=== PATIENT | female | born 1945 | race Caucasian/White ===

== ENCOUNTER → 2017-02-04 | Outpatient (CLI) | payer OTHER | END | disposition home or self-care (01) | LOC: C.PAPS 18:34 | PROVIDERS: ATTEND Obstetrics & Gynecology | DX: Z01.419 Encounter for gynecological examination (general) (routine) without abnormal findings (principal) ==

== ENCOUNTER → 2017-03-20 | Outpatient (CLI) | payer OTHER ==
[2017-03-20 12:48] LABS: BLOOD UREA NITROGEN 20 mg/dl (7-18); CALCIUM 8.9 mg/dl (8.5-10.1); CARBON DIOXIDE 28 mmol/L (21-32); CHOLESTEROL 275 mg/dl (0-200); CREATININE 0.62 mg/dl (0.60-1.20); GLUCOSE 90 mg/dl (70-99); POTASSIUM 4.3 mmol/L (3.5-5.1); SODIUM 141 mmol/L (136-145)
[2017-03-20 12:53] LABS: LDL CHOLESTEROL CALCULATED 185 mg/dl
== END | disposition home or self-care (01) ==
LOC: C.LABPVFM 08:53
PROVIDERS: ATTEND Internal Medicine
DX: R22.9 Localized swelling, mass and lump, unspecified (principal); R91.1 Solitary pulmonary nodule; G62.9 Polyneuropathy, unspecified; E55.9 Vitamin D deficiency, unspecified; N20.0 Calculus of kidney; E78.5 Hyperlipidemia, unspecified

== ENCOUNTER → 2017-04-09 | Outpatient (CLI) | payer OTHER | END | disposition home or self-care (01) | LOC: C.LABPVFM 14:04 | PROVIDERS: ATTEND Internal Medicine | DX: R22.9 Localized swelling, mass and lump, unspecified (principal); R91.1 Solitary pulmonary nodule; G62.9 Polyneuropathy, unspecified ==

== ENCOUNTER → 2017-04-18 | Outpatient (CLI) | payer OTHER ==
--- NOTE | 2017-04-18 11:22 | DIAGNOSTIC IMAGING REPORT ---
SOFT TISS HEAD/NECK-THYROID HISTORY: Pain. Nodule. R22.9 Soft tissue swellingSoft tissue mass on the medial aspect COMPARISON: CT 12/14/2016 FINDINGS: The area of palpable nodularity overlying the medial right clavicle at the sternal manubrial junction appears to relate to a slight anterior degenerative subluxation of the right clavicle in relation to the manubrium. Based on the prior CT study there is a moderate degree of surrounding degenerative granulation tissue which may account for the area of palpable nodularity. No soft tissue mass or collection is appreciated. IMPRESSION: The area of palpable nodularity appears to relate to asymmetry of the sternoclavicular joints with the right being somewhat anterior as compared to the left on a degenerative basis. This area of asymmetry is surrounded by moderate degenerative granulation tissue in part accounting for the palpable area of asymmetry. No pathologic collection or mass is appreciated. The above report was generated using voice recognition software. It may contain grammatical, syntax or spelling errors. Electronically signed by: Gus Erickson M.D. 04/18/2017 11:21 AM Dictated Date/Time: 04/18/2017 11:19 AM
== END | disposition home or self-care (01) ==
LOC: C.ULTR 10:38
PROVIDERS: ATTEND Nurse Practitioner
DX: R22.9 Localized swelling, mass and lump, unspecified (principal)

== ENCOUNTER → 2017-04-25 | Outpatient (CLI) | payer OTHER ==
--- NOTE | 2017-04-25 09:51 | DIAGNOSTIC IMAGING REPORT ---
(CHEST) THORAX WITHOUT CLINICAL HISTORY: 72 years-old Female presenting with R06.02 SOB (shortness of breath) on [id number] Lung nodule follow-up. TECHNIQUE: Multidetector CT imaging of the chest was performed without the use of intravenous contrast. IV contrast: None. A dose lowering technique was used consistent with the principles of ALARA (as low as reasonably achievable). COMPARISON: 10/23/2016. CT DOSE (mGy.cm): The estimated cumulative dose is 305.61 mGy.cm. FINDINGS: Sailmaker topogram: Unremarkable. On soft tissue windows, normal thyroid and thoracic inlet. No axillary, supraclavicular, or mediastinal lymphadenopathy. Evaluation of the ghassan limited without intravenous contrast. Atherosclerosis of the aorta. Normal heart size. Coronary artery and aortic valve calcification. No pericardial or pleural effusion. Fat-containing right Bochdalek hernia. On lung windows, minimal dependent changes likely atelectasis. Solid 4 mm triangular fissural nodule in the superior segment of the right lower lobe (series 4 image 97). Solid 4 mm triangular fissural nodule in the superior segment of the right lower lobe (series 4 image 133). Solid 4 mm polygonal fissural nodule in the medial right middle lobe (series 4 image 162). Solid punctate fissural nodule in the superior segment of the left lower lobe (series 4 image 127). Solid ovoid subpleural 7 mm nodule in the lateral basal left lower lobe (series 4 image 179). Allowing for differences in slice thickness with the prior exam, these nodules are grossly similar in appearance. Airways patent. On bone windows, degenerative changes of the spine. IMPRESSION: 1. Multiple bilateral solid pulmonary nodules measuring up to 7 mm. These are grossly similar in appearance to prior exam allowing for differences in slice thickness. Follow-up per Chika Society 2017 recommendations below. 2. No acute intrathoracic pathology. Please refer to below summary of Fleischner Society 2017 recommendations for follow-up of incidental CT nodules (Thanh Godinez et al. Guidelines for management of incidental pulmonary nodules detected on CT images: From the Fleischner Society 2017. Radiology 2017; 284: 228-243.) SOLID NODULES Single nodule; size < 6 mm * Low risk patients: No routine follow-up * High risk patients: Optional CT at 12 months Single nodule; size 6-8 mm * Low risk patients: CT at 6-12 months, then consider CT at 18-24 months * High risk patients: CT at 6-12 months, then at 18-24 months Single nodule; size > 8 mm * Either low or high risk patients: Considered CT at 3 months, PET/CT, or tissue sampling Multiple nodules; size < 6 mm * Low risk patients: No routine follow up * High risk patients: Optional CT at 12 months Multiple nodules; size 6-8 mm * Low risk patients: CT at 3-6 months, then consider CT at 18-24 months * High risk patients: CT at 3-6 months, then at 18-24 months Multiple nodules; size > 8 mm * Low risk patients: CT at 3-6 months, then consider at 18-24 months * High risk patients: CT at 3-6 months, then at 18-24 months Note: These guidelines apply to incidental nodules. These guidelines do not apply to patients younger than 35 years, immunocompromised patients, or patients with cancer. * Low risk patients: Minimal or absent history of smoking and/or other known risk factors * High risk patients: History of smoking, exposure to other carcinogens, emphysema, fibrosis, upper lobe location, family history of lung cancer, etc. * If a nodule up to 8 mm is partly solid or is ground glass, further follow-up is required after 24 months to exclude possible slow growing adenocarcinoma. SUBSOLID NODULES Single ground-glass nodule * Nodule size < 6 mm: No routine follow-up * Nodule size > or = 6 mm: CT at 6-12 months to confirm persistence, then CT every 2 years until 5 years Single part-solid nodule * Nodule size < 6 mm: No routine follow-up * Nodules size > or = 6 mm: CT at 3-6 months to confirm persistence. If unchanged and solid component remains < 6 mm, annual CT should be performed for 5 years Multiple nodules * Nodule size < 6 mm: CT at 3-6 months. If stable, consider CT at 2 and 4 years. * Nodules size > or = 6 mm: CT at 3-6 months. Subsequent management based on the most suspicious nodule(s) Electronically signed by: William Vo M.D. 04/25/2017 9:49 AM Dictated Date/Time: 04/25/2017 9:40 AM
== END | disposition home or self-care (01) ==
LOC: C.CTS 09:26
PROVIDERS: ATTEND Internal Medicine Critical Care Medicine
DX: R06.02 Shortness of breath (principal); R91.1 Solitary pulmonary nodule

== ENCOUNTER → 2017-05-28 | Outpatient (CLI) | payer OTHER | END | disposition home or self-care (01) | LOC: C.LABPVFM 09:46 | PROVIDERS: ATTEND Psychiatry & Neurology Neurology | DX: G62.9 Polyneuropathy, unspecified (principal) ==

== ENCOUNTER 2019-08-20 07:00 | Observation (INO) ==
--- NOTE | 2019-08-13 12:48 | Anesthesiology Consultation ---
Date of Service August 13, 2019 Assessment & Plan (1) Encounter for pre-operative examination: COVID Status: As of nurse assessment 08/12, patient denies travel outside of [facility], known exposure/sick contacts, or symptoms. Patient was tested for covid19 as routine pre-op for surgeon on 08/11. Results pending. Chart Review Chart Review: Acceptable Risk for Surgery (pending covid19 test results) and Patient NOT seen in Pre Admission Testing History Surgery Operation Date: 08/20/19 07:00 Proposed Procedures p Right Total Knee Arthroplasty - Real Zelaya MD Height/Weight Height: 5 ft 4 in Weight: 86.183 kg Allergies Allergy/AdvReac Type Severity Reaction Status Date / Time shellfish derived Allergy Hives Verified 08/13/19 11:19 Medications Home Medications Medication Instructions Recorded Confirmed Last Taken cholecalciferol (vitamin D3) 5,000 unit PO QAM 08/06/18 08/13/19 12/11/18 [Vitamin D3] meclizine 12.5 mg PO TID PRN 08/06/18 08/13/19 12/11/18 walker #1 ea 01/06/19 08/13/19 Unknown diclofenac sodium 75 mg See Rx Instructions .ROUTE 04/07/19 08/13/19 Unknown tablet,delayed release .COMPLEX #180 tablet omeprazole magnesium 20 mg 20 mg PO DAILY PRN #90 tab 07/20/19 08/13/19 Unknown tablet,delayed release atorvastatin 20 mg tablet 20 mg PO QAM #90 tab 07/24/19 08/13/19 Unknown temazepam 30 mg capsule 30 mg PO QPM #90 cap 07/24/19 08/13/19 Unknown gabapentin 300 mg capsule 600 mg PO TID 30 Days #180 cap 08/04/19 08/13/19 Unknown acetaminophen [Tylenol Extra 500 mg PO Q6H PRN 08/13/19 08/13/19 Unknown Strength] duloxetine 60 mg PO QAM 08/13/19 08/13/19 Unknown Past Medical History Medical History Anxiety disorder Benign breast lumps GERD (gastroesophageal reflux disease) History of iron deficiency anemia History of kidney stones Hyperlipidemia (Chronic) Meniere disease Neuropathy Osteoarthritis Pulmonary nodule MONITORING Right knee DJD (Chronic) Spinal stenosis (Chronic) Vitamin D deficiency (Chronic) Past Family History Family History Mother Diabetes Family history of diabetes mellitus Myocardial infarction Hypertension Aunt Breast cancer Father Prostate cancer Other No family history of adverse response to anesthesia Denies family history of Ovarian cancer Colorectal cancer Past Surgical History Surgical History H/O total hysterectomy (Inactive) History of cataract surgery History of colonoscopy History of lithotripsy History of lumpectomy of both breasts BENIGN History of surgery BLADDER SLING History of tonsillectomy History of tooth extraction Status post JEZ-BSO Social History Smoking Status: Former smoker tobacco type: cigarettes Do You Dip or Chew Tobacco: No Smoking End Date: 1989 Hx Alcohol Use: Yes Alcohol type: beer alcohol intake frequency: 0-2 drinks per day Hx Substance Use: No substance use type: does not use Testing Laboratory Results Blood Type O Negative 08/05/19 12:25 Antibody Screen NEGATIVE 08/05/19 12:25 08/05/19 WBC: 6.69 H/H: 12.2/38.4 PLATELETS: 303 SODIUM: 142 POTASSIUM: 4.0 CHLORIDE: 109 CO2: 27 BUN: 16 CREATININE: 0.68 GLUCOSE: 92 PT: 10.6 PTT: 26.7 INR: 1.0 Electrocardiogram Date: 08/05/19 Findings: + NSR @ (70bpm) Compared to EKG from 03/31/2019, iRBBB is no longer present, and criteria for inferior infarct is no longer present. Chest X-Ray Date: 08/05/19 IMPRESSION: Trace pleural effusions with mild bibasilar opacities suggestive of probable atelectasis.
[2019-08-14 21:15] LABS: SARS CoV2 RNA (COVID-19) NOT DETECTED (NOT DETECTED)
[~2019-08-20 07:00] MED LIST: ACETAMINOPHEN 500 MG TAB PO SCH; BUPIVACAINE 0.25% 30 ML VIAL ONE; BUPIVACAINE 0.5 % 5 MG/1 ML PF 10ML VIAL ONE; BUPIVACAINE LIPOSOME/PF 266 MG, BUPIVACAINE/EPINEPHRINE 50 ML, SODIUM CHLORIDE 0.9% 30 ... INFIL SCH; CEFAZOLIN 2000MG 2,000 MG/15 ML SYR IV SCH; CEFAZOLIN 3000MG 72.5 ML IV SCH; FAMOTIDINE 20 MG TAB PO SCH; GABAPENTIN 300 MG CAP PO SCH; LR 500ML BOLUS, THEN 15ML/HR IV SCH; LR 60ML/HR IV SCH; METOCLOPRAMIDE HCL 10 MG TABLET PO SCH; TRANEXAMIC ACID / 0.7% NACL 1,000 MG/100 ML BAG IV SCH
[2019-08-20] MEDS ORDERED: MIDAZOLAM HCL 1 MG/ML 2ML VIAL ONE (07:11)
[2019-08-20] MEDS ORDERED: fentaNYL citrate 100 MCG/2 ML VIAL ONE (07:11)
--- NOTE | 2019-08-20 08:25 | History & Physical Bridge Note ---
Date of Service August 20, 2019 History & Physical Bridge Note I have examined the patient, reviewed the History & Physical and in the interval since the performance of the History & Physical I have noted the following changes of clinical significance: no changes noted
[2019-08-20] MEDS ORDERED: BUPIVACAINE/EPINEPHRINE 0.25% 1:200,000 30 ML VIAL ONE (08:31)
[2019-08-20] MEDS ORDERED: BACITRACIN INJ 50,000 UNIT VIAL ONE (08:32)
[2019-08-20] MEDS ORDERED: BUPIVACAINE LIPOSOME 1.3% 266 MG/20 ML VIAL ONE (08:32)
[2019-08-20] MEDS ORDERED: SODIUM CHLORIDE 0.9% PF 50 ML VIAL ONE (08:32)
[2019-08-20] MEDS ORDERED: fentaNYL citrate 100 MCG/2 ML VIAL IV PRN (09:01)
[2019-08-20] MEDS ORDERED: ATROPINE SULFATE 0.1 MG/ML 10ML SYR IV PRN (09:01)
[2019-08-20] MEDS ORDERED: ONDANSETRON INJ 2 MG/ML 2 ML VIAL IV PRN ×2 (09:01→11:42)
[2019-08-20] MEDS ORDERED: ePHEDrine sulfate 50 MG/ML AMP IV PRN (09:01)
[2019-08-20] MEDS ORDERED: PROPOFOL IV EMULSION 10 MG/ML 20 ML VIAL IV ONE ×2 (09:37→10:06)
--- NOTE | 2019-08-20 10:30 | Post Operative Brief Note ---
PG Immediate Post Op with CF Date of Surgery August 20, 2019 Pre & Post Diagnosis Operation Date: 08/20/19 08:50 Pre-Op Diagnosis: Right Knee Degenerative Joint Disease Post-Op Diagnosis: Right Knee Degenerative Joint Disease I identified the patient and participated in the time-out.: Yes Procedure Operation Date: 08/20/19 08:50 Actual Procedures p Right Total Knee Arthroplasty(Right) - Real Zelaya MD Surgeon Real Zelaya MD Proof Machine Operator Jael, PAC Estimated Blood Loss 50 Findings Consistent with Post-Op Diagnosis Fluids 1200 cc Specimens Specimen Description: A: Right Knee Bone and Tissue Drains Meléndez Catheter (16fr inserted by PAOLO Velazquez without difficulty. ) Anesthesia Type Spinal MAC Complications none Disposition Accompanied Patient To Recovery: No Disposition: Recovery Room
--- NOTE | 2019-08-20 10:41 | Operative Report ---
Post Operative Report Pre & Post Diagnosis Operation Date: 08/20/19 08:50 Pre-Op Diagnosis: Right Knee Degenerative Joint Disease Post-Op Diagnosis: Right Knee Degenerative Joint Disease I identified the patient and participated in the time-out.: Yes Procedure Operation Date: 08/20/19 08:50 Actual Procedures p Right Total Knee Arthroplasty(Right) - Real Zelaya MD Surgeon Real Zelaya MD Guest Services Assistant Jael, PAC Estimated Blood Loss 50 Findings Consistent with Post-Op Diagnosis Operative findings revealed advanced right knee DJD with grade 4 [id number] disease of the lateral compartment. She had some spotty grade 4 changes in the medial and patellofemoral compartments. She had a valgus deformity to her knee and a moderate-sized joint effusion. Fluids 1200 cc. Specimens Right knee sent for pathology. Drains None. Anesthesia Type Spinal MAC Complications none Disposition Accompanied Patient To Recovery: No Disposition: Recovery Room Indications Patient is a 74-year-old female is had a several year history of increased right knee pain and discomfort unresponsive conservative care. As she was treated by my partner and then referred to me for surgical treatment. Pain was limiting her daily activities and ability to maintain an active lifestyle. She elected proceed with total knee arthroplasty. Description of Procedure Operative implants consist of: 1. Biomet Vanguard size 60 right posterior by femoral component. 2. Biomet size 63 tibial tray. 3. 10 mm posterior box polyethylene insert. 4. 31 x 8 all poly-patella. Patient was taken to the operating identified and placed on the operating table supine position protectors were properly padded. IV antibiotics arrived by anesthesia team. Spinal anesthetic and abductor canal block had provided in the holding area. Meléndez catheter was placed in sterile fashion in the right lower extremities and prepped and draped in usual sterile fashion. The right leg was elevated and exsanguinated with use of an Esmarch and turns placed at 300 mmHg. An anterior approach to the right knee was then performed to longitudinal incision centered over the patella. Sharp dissection was gone through subcutaneous this down to the extensor mechanism. A medial parapatellar arthrotomy incision was made. Some subperiosteal dissection was carried out medially. The fat pad was resected from each patella tendon. The lateral patellofemoral ligament was released. Patella was subluxated laterally knee was flexed. The osteophytes were taken off the distal femur. The ACL and PCL were then released from distal femur and the tibia subluxate anteriorly. The e xternal tibial alignment jig was then placed in the interface the tibia and adjusted 12 mm medially. Proximal tibial cut was made to remove about 4 to 5 mm of bone from the medial side. The tibia was then sized to a size 63. Attention drawn the femur. The distal femur was entered with a sharp drill. The intramedullary canal was suction. A right 5 degree valgus cutting guide was placed. Distal femoral cutting block was pinned in place. Distal femoral cut was made to take an additional 3 mm of bone off distal femur. The femur was then sized to a size 60. We did downsize this just slightly. The AP cutting block was pinned parallel to the epicondylar axis which was 4 degrees of external rotation. The anterior cut, anterior chamfer, posterior cut, posterior chamfer cuts were made. Box cutting guide was placed in a just slight lateral box cut was made. The knee was flexed. The remnants of the medial lateral menisci were excised. The osteophytes were taken off the posterior aspect the femur. A trial femoral component was placed. The tibial tray was pinned in maximum external rotation and the drill and stem punch were used to create defect in proximal tip for the tibial tray. The knee was then trialed and the 10 mm insert fit most appropriately. Attention drawn to the patella. The patella was cleaned of all soft tissues. Patella thickness measured 21 mm in thickness was cut down to 13. Was sized to a size 31 patella. The locals were drilled for 31 patella. The lateral osteophyte is moved. Patella button was placed. Knee was taken through range of motion and the patella tracked nicely with no thumbs test. Attention drawn to placing permanent components. New profile trial components were removed. Bone plug was placed in the disc femur limit blood loss. A double batch Palacos G cement was mixed. A Biomet Vanguard size 60 right posterior by femoral component, size 63 tibial tray, a 10 mm posterior box polyethylene insert, 31 x 8 all poly-patella were then cemented in place. The knee was brought out into full extension total cement hardened. Final cement check was then performed. The pericapsular tissues were injected with total 100 cc of combination of 20 cc of Exparel, 30 cc normal saline, 50 cc of quarter percent Marcaine with epinephrine. Patient did receive 1 g of tranexamic acid. The tourniquet was then let down for turn time 49 minutes. Hemostasis assured use electrocautery. The wounds once again irrigated. The extensor mechanism closed with combination 1 PDS suture #1 Vicryl suture in [id number] fashion. Extensor mechanism checked found to be intact the subcutaneous tissue then closed with 2 Dexon suture in a buried interrupted fashion skin was closed skin derek. Leg was then cleaned dried a sterile dressing composed Xeroform, 4 x 4's, sterile cast padding, Guanako bandage were applied. Patient then transferred to the recovery room in stable condition. Patient tolerated the procedure well no complications. I attest to the content of the Intraoperative Record and any orders documented therein. Any exceptions are noted below.
--- NOTE | 2019-08-20 11:24 | Anesthesiology Progress Note ---
Date of Service August 20, 2019 Anesthesia Post Procedure Vital Signs Vital Signs: Temp Pulse Pulse Resp BP BP Pulse Ox 08/20/19 11:15 36.3 C L 82 14 135/62 93 08/20/19 11:05 76 18 135/69 93 08/20/19 10:55 83 16 128/73 96 08/20/19 10:45 76 14 129/68 99 08/20/19 10:35 36.2 C L 86 14 124/67 96 08/20/19 07:44 37.0 C 68 18 147/81 H 98 Pain Intensity Right Knee: Pain Intensity: 6 Transfer of Care Handoff Completed per policy Notes Mental Status: alert / awake / arousable and participated in evaluation Nausea / Vomiting: adequately controlled Pain: adequately controlled Airway Patency, RR, SpO2: stable & adequate BP & HR: stable & adequate Hydration State: stable & adequate Neuraxial Anesthesia: was administered and sensory block is resolving Anesthetic Complications: no major complications apparent and Pt Satisfied with anesthetic care
--- NOTE | 2019-08-20 11:26 | XRay Report ---
XR knee RT 1 or 2V routine CLINICAL HISTORY: Surgical Post Op COMPARISON: Knee radiographs August 03, 2019. FINDINGS: Alignment of the total right knee arthroplasty is anatomic. No periprosthetic fracture or unexpected radiopaque foreign body. There are skin derek. IMPRESSION: Expected findings following total right knee arthroplasty. ACT 112: Negative or not required by law. Electronically signed by: Yobany Jimenez M.D. 08/20/2019 11:25 AM
[2019-08-20] MEDS ORDERED: HYDROmorphone INJ 0.5 MG/0.5 ML SYR IV PRN (11:42)
[2019-08-20] MEDS ORDERED: NALOXONE HCL 0.4 MG/1 ML VIAL/CARP IV PRN (11:42)
[2019-08-20] MEDS ORDERED: MAGNESIUM HYDROXIDE SUSP 30 ML UDC PO PRN (11:42)
[2019-08-20] MEDS ORDERED: METOCLOPRAMIDE HCL INJ 5 MG/ML 2 ML VIAL IV PRN (11:42)
[2019-08-20] MEDS ORDERED: bisacodyL 10 MG SUPP PR PRN (11:42)
[2019-08-20] MEDS ORDERED: ALUMINUM/MAGNESIUM SUSP 30 ML UDC PO PRN (11:42)
[2019-08-20] MEDS ORDERED: PANTOprazole 40 MG TAB PO PRN (11:42)
[2019-08-20] MEDS ORDERED: MECLIZINE 12.5 MG TAB PO PRN (11:42)
[2019-08-20] MEDS: SODIUM CHLORIDE 0.9% 1000ML 1,000 ML IV SCH ×2 (13:00→21:34)
[2019-08-20] MEDS: KETOROLAC TROMETHAMINE 15 MG/ML VIAL IV SCH ×2 (13:00→18:26)
[2019-08-20] MEDS: GABAPENTIN 300 MG CAP PO SCH ×2 (13:48→21:32)
[2019-08-20] MEDS: ACETAMINOPHEN 500 MG TAB PO SCH ×2 (13:49→21:54)
[2019-08-20] MEDS: TRAMADOL HCL 50 MG TABLET PO PRN (13:58)
[2019-08-20] MEDS ORDERED: TRANEXAMIC ACID / 0.7% NACL 1,000 MG/100 ML BAG IV SCH (16:33)
[2019-08-20] MEDS: CEFAZOLIN 2000MG 2,000 MG/15 ML SYR IV SCH (16:56)
--- NOTE | 2019-08-20 17:56 | Progress Notes ---
DATE: 08/20/2019 SUBJECTIVE: A 74-year-old white female who is postop from right knee replacement. She is doing pretty well. Getting the feeling back in her leg and have a little bit of pain. No chest pain or shortness of breath. Not feeling dizzy or lightheaded. OBJECTIVE: VITAL SIGNS: Temperature 36.9. Vital signs stable. GENERAL: Shows a pleasant, middle-aged female. She is sitting up in bed, looks reasonably comfortable. I did have to wake her when I went in to her room this evening. LUNGS: Clear to auscultation. HEART: Has a regular rate and rhythm. ABDOMEN: Soft, nontender, nondistended. EXTREMITIES: Grossly neurovascularly intact except as follows: Examination of the right leg reveals the dressing to be clean, dry and intact. She can dorsiflex and plantarflex her foot appropriately. She is neurologically intact. X-RAYS: X-rays of the right knee from recovery room were reviewed. It shows a right cemented posterior stabilized total knee arthroplasty. Components looked to be in good position. No signs of problems. ASSESSMENT: A 74-year-old white female postoperative from right knee replacement, doing well. Pain is controlled. She is neurologically intact. We will obviously have to adjust any pain medicines as the spinal continues to wear off. PLAN: 1. DVT prophylaxis including thigh-high TEDs, SCDs, and aspirin twice a day. 2. PT/OT. Weight bear as tolerated. Right total knee protocol. 3. Pain control, doing pretty well with current pain regimen. 4. Disposition: Plan to discharge to home with some home health once adequately stable and medically recovered.
[2019-08-20] MEDS: FERROUS GLUCONATE 324 MG TAB PO SCH (18:23)
[2019-08-20] MEDS: ASCORBIC ACID 500 MG TAB PO SCH (18:24)
[2019-08-20] MEDS ORDERED: TEMAZEPAM 15 MG CAPSULE PO SCH (21:00)
[2019-08-20] MEDS ORDERED: SENNA 8.6 MG TAB PO SCH (21:00)
[2019-08-20] MEDS: DOCUSATE SODIUM 100 MG CAP PO SCH (21:31)
[2019-08-20] MEDS: ASPIRIN 81 MG ECTAB PO SCH (21:31)
[2019-08-21] MEDS: CEFAZOLIN 2000MG 2,000 MG/15 ML SYR IV SCH (00:25)
[2019-08-21] MEDS: KETOROLAC TROMETHAMINE 15 MG/ML VIAL IV SCH ×3 (00:25→11:56)
[2019-08-21] MEDS: ACETAMINOPHEN 500 MG TAB PO SCH ×2 (05:40→13:21)
[2019-08-21] MEDS ORDERED: dexAMETHasone 4 MG TAB PO SCH (08:00)
[2019-08-21] MEDS: FERROUS GLUCONATE 324 MG TAB PO SCH (08:17)
[2019-08-21] MEDS: ASCORBIC ACID 500 MG TAB PO SCH (08:17)
[2019-08-21 08:26] LABS: Hematocrit (blood only) 29.7 % (37-47); Hemoglobin 9.5 g/dL (12.0-16.0); Mean Corpuscular Hemoglobin 27.7 pg (25-34); Mean Corpuscular Volume 86.6 fL (80-100); Mean Platelet Volume 10.3 fL (7.4-10.4); Platelet Count 230 K/uL (130-400); RDW Standard Deviation 47.2 fL (36.4-46.3); Red Blood Count 3.43 M/uL (4.2-5.4)
[2019-08-21 08:55] LABS: BUN Creatinine Ratio 19.3 (10-20); Calcium 7.7 mg/dl (8.5-10.1); Creatinine Clr Calc Pharmacy 80.9 ml/min; Est GFR (African American) 101.9; Est GFR (Non-African American) 87.9; Potassium 3.8 mmol/L (3.5-5.1)
[2019-08-21] MEDS ORDERED: MULTIVITAMIN TAB PO SCH (09:00)
[2019-08-21] MEDS ORDERED: ATORVASTATIN 20 MG TAB PO SCH (09:00)
[2019-08-21] MEDS ORDERED: CHOLECALCIFEROL 1,000 UNITS 25 MCG TAB PO SCH (09:00)
[2019-08-21] MEDS ORDERED: DULOXETINE HCL 60 MG CAP PO SCH (09:00)
--- NOTE | 2019-08-21 09:01 | Progress Notes ---
DATE: 08/21/2019 SUBJECTIVE: A 74-year-old female postop day 1 from a left knee replacement. She is doing pretty well. Having some pain, but seems manageable this morning. No chest pain or shortness of breath. Not feeling dizzy or lightheaded. She really is desiring to go home if possible. OBJECTIVE: VITAL SIGNS: Temperature is 36.5. Vital signs stable. GENERAL: Shows a pleasant elderly female. She was sleeping, I woke her this morning. She is lying in bed and looks comfortable. EXTREMITIES: Examination of the right leg reveals the dressing to be clean, dry and intact. She can dorsiflex and plantarflex her foot appropriately. She is neurologically intact. Brisk refill. LABORATORY DATA: Labs are pending. ASSESSMENT: A 74-year-old female postop day 1 from a right knee replacement, doing pretty well. Pain seems to be controlled. She wants to go home and we will have to see how therapy is going. She has a granddaughter, I believe, who is going to come and stay with her. PLAN: 1. DVT prophylaxis including thigh-high TEDs, SCDs, and aspirin twice a day. 2. PT/OT. Weight bear as tolerated. Right total knee protocol. 3. Pain control, doing pretty well with current pain regimen. 4. Disposition: We will see how therapy goes today. She is doing okay, we will get her home with some home health and some family assistance.
[2019-08-21] MEDS: DOCUSATE SODIUM 100 MG CAP PO SCH (09:17)
[2019-08-21] MEDS: ASPIRIN 81 MG ECTAB PO SCH (09:18)
[2019-08-21] MEDS: GABAPENTIN 300 MG CAP PO SCH ×2 (09:19→13:21)
[2019-08-21] MEDS: TRAMADOL HCL 50 MG TABLET PO PRN (10:22)
--- NOTE | 2019-08-24 16:05 | Discharge Summary ---
Date of Service August 24, 2019 Admission HPI Per Admitting Provider Documented in the H&P Admission Exam (Per Admitting) Constitutional Documented in the admission H&P Discharge Data Consultations 08/20/19 11:42 Consult Case Management - Discharge Planning Routine Procedures Performed Operation Date: 08/20/19 08:50 Actual Procedures p Right Total Knee Arthroplasty(Right) - Real Zelaya MD Hospital Course (1) Status post total right knee replacement: 74-year-old female admitted on 08/20/2019 underwent right total knee arthroplasty. She tolerated procedure well and there were no complications. She is transferred to the PACU postoperatively and later to the orthopedic for further care. She was given Ancef for antibiotic prophylaxis. She was given EYAD stockings, SCDs, and aspirin for DVT prophylaxis. Hemoglobin, hematocrit, and vital signs were monitored during her hospital stay and remained stable. Should not require blood transfusions. By postoperative day 1 she was tolerating a regular diet. Her pain was controlled with oral pain medicine. She is participating in physical therapy. On postop day 1 she was discharged home set up with home health services. She is given printed discharge instructions as well as new prescriptions for extra strength Tylenol, aspirin, and iron supplement, and tramadol. Continue physical therapy. She is weightbearing as tolerated. Continue EYAD stockings. Follow-up in approximately 2 weeks postop or sooner if there are any problems or concerns. Coding Level of Care Code None Diagnoses Status post total right knee replacement Z96.651
== END 2019-08-21 14:09 | disposition home health service (06) ==
LOC: 3N 07:00 → ASU 07:00

== ENCOUNTER 2021-04-14 08:53 | Inpatient (IN) ==
[2021-04-14] MEDS ORDERED: SODIUM CHLORIDE 0.9% 500 ML IV ONE (09:14)
--- NOTE | 2021-04-14 09:21 | Emergency Department Note ---
Impression & Plan Acute cognitive decline, Altered mental status, Anemia ED Provider Note Name: ILSA ANGELO Age: 76 Sex: F Arrives Via: Ambulance Informant: Patient, Family ED Provider: Roel Santoro MD Chief Complaint: confusion Impression: As per impression as above Medical Decision Makin-year-old female who recently had a left knee replacement about 4 days ago here at this facility. She notes she had been feeling well up until yesterday when she had a medication mistake and may have overtaken more of her pain meds than planned. This morning she took her meds at around 3 AM when family checked her at 7 AM she was confused and altered. Apparently she was having slurred speech and was not her normal self. EMS arrived and she was given some fluids with some improvement in her symptoms though still confused. She was taken here and remains mildly confused though is alert oriented and aware. Her examination shows significant edema and bruising of her left leg though does not appear compartment syndrome in the incision appears to be healing well. Her hemoglobin has dropped significantly though this is consistent with her recent surgery and in the setting of hemoglobin of 8.5 I do not feel that she requires transfusion at this time. Her abdominal exam is benign and she denies any bloody bowel movements though I will note she did note some dark stool to hospitalist. I will note the patient has no neurologic deficits nor slurred speech on my examination and I do not feel this is consistent with acute stroke. She did have a CT head on arrival which is negative. I do not feel that stroke alert would be indicated and she would clearly not be an anticoagulant candidate given her left leg surgery just a few days ago. In the setting of acute onset of confusion and some persistent symptoms even though this may be medication related I do not feel it be sandoval to send her home at this time and family agrees to also note that they do not feel they could care for this patient. Of note there is no clear evidence of infection at this time. Her chest x-ray is consistent with hypoventilation but there is no clear infiltrate or effusion at this time. She did have some mild hypoxia though I think this is more from under breathing. She is not to the point where she requires Narcan and I think that would just complicate measures. She was given Tylenol with improvement of her leg pain. Prior Medical Record and Triage/Nursing Notes reviewed by Me Additional history obtained from family Differentials:Infection, dehydration, metabolic abnormality, hypo/hyperglycemia, electrolyte disturbance, anemia, hypoxia, cardiac sources, intracerebral event, toxicologic, neurologic, as well as other pathologies. Vital Signs: reviewed and remarkable for no significant abnormalities Interventions: Tylenol 1 g p.o. Labs:Reviewed and remarkable for no significant abnormalities Imaging:See Below EKG:Per My Interpretation: Indication weakness: NSR 91 bpm, qtc 410. No Ectopy. No Ischemia. Compared to EKG 03/08/21, no significant changes. Consults:Dr Cecilia DIALLO Hospitalist Plan: Disposition:Hospitalization. Condition: Good History of Present Illness:76-year-old female arrives for evaluation of altered mental status. Patient with left knee replacement 4 days ago and had been at home doing well the last few days. She has been using her pain medications as scheduled. She awoke around 3 AM this morning to take her medicines and then when her woke her up around 7 AM he noted she was quite confused with slurred speech and altered mental status. She was too weak to even sit up. EMS was called and came to evaluate her and she gradually came back to her normal self. Apparently her blood sugar was normal. She was given 500 mL of IV fluid with improvement in her mental status. Patient notes some left knee pain but otherwise states she feels all right. She is asking when she can go home. She does admit to mild headache but states that is not uncommon for her. She is adamant she has had no falls nor injuries. She has had no fevers, chills, vomiting, back pain, abdominal pain, bloody stool, urinary symptoms, chest pain, shortness of breath or other symptoms. She denies any recent cough nor congestion. Patient states her knee has been sore but is not overly un comfortable at the moment and denies any rashes. She does note that the left lower leg is swollen consistent with her previous surgeries. She is currently on aspirin 81 mg twice daily but denies other blood thinner use. Patient with no bleeding disorder history. She does not have a history of stroke and her states she has never had an altered mental status episode like this before. ROS: See above HPI for pertinent positives & negatives. A total of 10 systems reviewed and were otherwise negative. Past Medical History:See Below Past Surgical History:See Below Family History:See Below Social History:See Below Home Medications:See Below Allergies:See Below Vitals:Blood Pressure: 120/71, Pulse 92, RR 18, T 37.4C, O2 93% on RA Physical Exam: GENERAL: Patient is tired/dehydrated appearing and in no acute distress. EYES: No scleral icterus, unremarkable pupils. ENT: Mucous membranes dry, no nasal congestion. NECK: No masses appreciated, nomeningismus, trachea is midline. RESPIRATORY: No dyspnea. Clear to auscultation and equal bilaterally. No wheeze, no rhonchi. CARDIOVASCULAR: Regular rate and rhythm.No murmurs, rubs, gallops appreciated. GASTROINTESTINAL: Abdomen soft, non-tender, no peritonitis.Bowel sounds positive.No masses appreciated. BACK: No midline tenderness, no CVA tenderness EXTREMITIES: Swelling left leg primarily around knee with well looking anterior incision line closed with derek and some mild serous oozing. Otherwise normal motion all extremities, no cyanosis, no edema. NEUROLOGIC: Mild confusion and slow to respond but she is alert and oriented, no acute motor or sensory deficits, no focal weakness, cranial nerves grossly intact. SKIN: No rash, no jaundice, no diaphoresis. PSYCH: Appropriate GCS: 15 ED Course: Times/Reassessments: Patient remains slightly confused/slow to respond but is in no distress. Roel Santoro MD Past Med/Surg History Medical History (Updated 04/14/21 @ 15:26 by Roel Santoro MD) Anxiety disorder Benign breast lumps Essential tremor follows with Dr. Giron [facility]-on propranolol GERD (gastroesophageal reflux disease) controlled, stable per pt History of iron deficiency anemia pre-op H&H 02/2021: 12.3/39 History of kidney stones punctate right renal stone, negative imaging in the urinary tracts, plan for 1 year f/u per [facility] 09/29/2020 office note Hyperlipidemia Left carpal tunnel syndrome Left hand tendonitis Left knee DJD Meniere disease Neuropathy idiopathic peripheral neuropathy per [facility] 12/2020 note-on duloxetine and gabapentin Osteoarthritis PMR (polymyalgia rheumatica) on daily prednisone Pulmonary nodule monitoring, follows with PCP Right knee DJD Spinal stenosis Vitamin D deficiency Surgical History (Updated 04/14/21 @ 12:54 by Sal Brooks MD) History of carpal tunnel release right History of cataract surgery bilat History of colonoscopy History of lithotripsy History of lumpectomy of both breasts BENIGN History of surgery BLADDER SLING History of tonsillectomy History of tooth extraction Status post right knee replacement 08/20/2019: SAB at L3, 3 attempts + PNB. No issues per anesthesia post-op progress note. Status post [id number] Family History Mother Diabetes Family history of diabetes mellitus Myocardial infarction Hypertension Stroke Heart disease Aunt Breast cancer Father Prostate cancer Brother Hearing loss Other No family history of adverse response to anesthesia No family history of bleeding disorder Denies family history of Ovarian cancer Colorectal cancer Social History Smoking Status: Former smoker packs per day: 0.5; Years Smoked: 18.0; Second Hand Exposure: No; Hx Alcohol Use: Yes Alcohol type: beer Hx Substance Use: No Preferred Language: Vietnamese Communication Ability: Effective Visual Impairment: No Limitations Hearing Ability: Normal Computer Support Technician Required: No Beliefs That Will Affect Care: None marital status: Current Living Situation: Spouse current occupational status: retired How many Children do You have: 1 Feels Safe at Home: Yes Childhood Exposure to Second-Hand Smoke: No caffeine: Yes Dental Care, Regularly: Yes Physical Activity Frequency: Other Seatbelt Use: always Sunscreen Use: Yes Assistive Devices: Glasses and Walker Allergies Allergies Allergy/AdvReac Type Severity Reaction Status Date / Time shellfish derived Allergy Intermediate Hives Verified 04/14/21 11:11 No Known Drug Allergies Allergy Verified 04/14/21 11:11 Home Meds Home Medications Medication Instructions Recorded Confirmed cholecalciferol (vitamin D3) 125 5,000 unit PO QAM 08/06/18 04/14/21 mcg (5,000 unit) tablet (Vitamin D3) meclizine 12.5 mg tablet 12.5 mg PO TID PRN 08/06/18 04/14/21 sennosides 8.6 mg-docusate sodium 1 tab-cap PO HS 04/14/21 04/14/21 50 mg tablet (Senokot-S) Previous Rx's Medication Instructions Recorded walker #1 ea 01/06/19 gabapentin 600 mg tablet 600 mg PO TID 90 Days #270 tab 12/09/20 atorvastatin 20 mg tablet (Lipitor) 20 mg PO QAM #90 tab 01/04/21 omeprazole magnesium 20 mg 20 mg PO QAM #90 tab 01/04/21 tablet,delayed release (Prilosec OTC) duloxetine 60 mg capsule,delayed 60 mg PO QAM #90 cap 03/02/21 release propranolol 120 mg capsule,24 120 mg PO QAM #90 cap 03/15/21 hr,extended release temazepam 30 mg capsule 30 mg PO HS #90 cap 03/28/21 prednisone 2.5 mg tablet 5 mg PO QAM #180 tab 03/30/21 acetaminophen 500 mg capsule 1,000 mg PO TID 30 Days #180 cap 04/07/21 aspirin 81 mg tablet,delayed 81 mg PO BID 45 Days #90 tab 04/07/21 release (Adult Aspirin Regimen) ketorolac 10 mg tablet 10 mg PO Q6 #20 tab 04/07/21 ondansetron HCl 4 mg tablet 4 mg PO Q6 PRN #20 tab 04/07/21 tramadol 50 mg tablet 50 - 100 mg PO Q8H PRN #40 tab 04/07/21 Results & Data (ED) Vital Signs Vital Signs - 24 hr 04/14/21 09:00 04/14/21 09:01 04/14/21 09:10 Temperature 37.4 C Temperature Source Oral Pulse Rate 85 92 H 89 Pulse Rate [Left Finger] Pulse Rate from SpO2 Sensor Respiratory Rate 20 18 24 Respiratory Effort / Characteristics Blood Pressure 129/67 120/71 Blood Pressure [Left Arm] Blood Pressure Mean 87 87 Blood Pressure Mean [Left Arm] Blood Pressure Position Semi-fowlers Blood Pressure Position [Left Arm] Pulse Oximetry 96 93 96 Oxygen Delivery Method Room Air Oxygen Flow Rate 2 2 Sepsis Recent Fever Within 48 Hours No Sepsis New/Unexplained Change in Mental Status No Sepsis Action Taken by Nursing No Action Required 04/14/21 09:20 04/14/21 09:30 04/14/21 09:49 Temperature Temperature Source Pulse Rate 88 88 90 Pulse Rate [Left Finger] Pulse Rate from SpO2 Sensor 89 Respiratory Rate 19 16 22 Respiratory Effort / Characteristics Blood Pressure Blood Pressure [Left Arm] Blood Pressure Mean Blood Pressure Mean [Left Arm] Blood Pressure Position Blood Pressure Position [Left Arm] Pulse Oximetry 96 93 95 Oxygen Delivery Method Nasal Cannula Oxygen Flow Rate 2 2 2 Sepsis Recent Fever Within 48 Hours Sepsis New/Unexplained Change in Mental Status Sepsis Action Taken by Nursing 04/14/21 09:50 04/14/21 10:00 04/14/21 10:10 Temperature Temperature Source Pulse Rate 85 85 Pulse Rate [Left Finger] 85 Pulse Rate from SpO2 Sensor 85 Respiratory Rate 21 20 19 Respiratory Effort / Characteristics Blood Pressure 122/92 Blood Pressure [Left Arm] 122/92 Blood Pressure Mean 102 Blood Pressure Mean [Left Arm] 102 Blood Pressure Position Blood Pressure Position [Left Arm] Sitting Pulse Oximetry 96 96 98 Oxygen Delivery Method Nasal Cannula Oxygen Flow Rate 2 2 2 Sepsis Recent Fever Within 48 Hours Sepsis New/Unexplained Change in Mental Status Sepsis Action Taken by Nursing 04/14/21 10:20 04/14/21 10:30 04/14/21 10:40 Temperature Temperature Source Pulse Rate 85 90 Pulse Rate [Left Finger] Pulse Rate from SpO2 Sensor 86 87 Respiratory Rate 16 16 20 Respiratory Effort / Characteristics Blood Pressure Blood Pressure [Left Arm] Blood Pressure Mean Blood Pressure Mean [Left Arm] Blood Pressure Position Blood Pressure Position [Left Arm] Pulse Oximetry 97 99 Oxygen Delivery Method Oxygen Flow Rate Sepsis Recent Fever Within 48 Hours Sepsis New/Unexplained Change in Mental Status Sepsis Action Taken by Nursing 04/14/21 10:50 04/14/21 11:08 04/14/21 11:10 Temperature Temperature Source Pulse Rate 91 H 104 H Pulse Rate [Left Finger] 88 Pulse Rate from SpO2 Sensor 86 90 Respiratory Rate 13 16 20 Respiratory Effort / Characteristics Spontaneous Blood Pressure Blood Pressure [Left Arm] 139/57 L Blood Pressure Mean Blood Pressure Mean [Left Arm] 84 Blood Pressure Position Blood Pressure Position [Left Arm] Pulse Oximetry 81 L 94 Oxygen Delivery Method Nasal Cannula Oxygen Flow Rate 2 Sepsis Recent Fever Within 48 Hours Sepsis New/Unexplained Change in Mental Status Sepsis Action Taken by Nursing 04/14/21 11:20 04/14/21 11:30 04/14/21 11:40 Temperature Temperature Source Pulse Rate 85 85 88 Pulse Rate [Left Finger] Pulse Rate from SpO2 Sensor 86 85 90 Respiratory Rate 18 17 19 Respiratory Effort / Characteristics Blood Pressure Blood Pressure [Left Arm] Blood Pressure Mean Blood Pressure Mean [Left Arm] Blood Pressure Position Blood Pressure Position [Left Arm] Pulse Oximetry 98 97 92 Oxygen Delivery Method Oxygen Flow Rate Sepsis Recent Fever Within 48 Hours Sepsis New/Unexplained Change in Mental Status Sepsis Action Taken by Nursing 04/14/21 11:50 04/14/21 12:00 04/14/21 12:05 Temperature Temperature Source Pulse Rate 89 Pulse Rate [Left Finger] 90 Pulse Rate from SpO2 Sensor 88 91 H Respiratory Rate 27 H 19 Respiratory Effort / Characteristics Blood Pressure Blood Pressure [Left Arm] Blood Pressure Mean Blood Pressure Mean [Left Arm] Blood Pressure Position Blood Pressure Position [Left Arm] Pulse Oximetry 94 91 90 Oxygen Delivery Method Room Air Oxygen Flow Rate Sepsis Recent Fever Within 48 Hours Sepsis New/Unexplained Change in Mental Status Sepsis Action Taken by Nursing 04/14/21 12:10 04/14/21 12:20 04/14/21 12:30 Temperature Temperature Source Pulse Rate 89 87 87 Pulse Rate [Left Finger] Pulse Rate from SpO2 Sensor 90 87 88 Respiratory Rate 16 23 15 Respiratory Effort / Characteristics Blood Pressure Blood Pressure [Left Arm] Blood Pressure Mean Blood Pressure Mean [Left Arm] Blood Pressure Position Blood Pressure Position [Left Arm] Pulse Oximetry 92 98 97 Oxygen Delivery Method Oxygen Flow Rate Sepsis Recent Fever Within 48 Hours Sepsis New/Unexplained Change in Mental Status Sepsis Action Taken by Nursing 04/14/21 12:40 04/14/21 12:50 04/14/21 15:00 Temperature 37.1 C Temperature Source Oral Pulse Rate 90 89 Pulse Rate [Left Finger] Pulse Rate from SpO2 Sensor 90 89 Respiratory Rate 21 16 Respiratory Effort / Characteristics Blood Pressure Blood Pressure [Left Arm] Blood Pressure Mean Blood Pressure Mean [Left Arm] Blood Pressure Position Blood Pressure Position [Left Arm] Pulse Oximetry 93 97 Oxygen Delivery Method Nasal Cannula Oxygen Flow Rate 2 Sepsis Recent Fever Within 48 Hours Sepsis New/Unexplained Change in Mental Status Sepsis Action Taken by Nursing Laboratory Data Result diagrams: 04/14/21 10:26 04/14/21 10:26 Lab Results 04/14/21 04/14/21 04/14/21 Range/Units 09:33 09:33 10:26 WBC Cancelled 6.77 RBC Cancelled 2.90 L Hgb Cancelled 8.4 L Hct Cancelled 27.2 L MCV Cancelled 93.8 MCH Cancelled 29.0 MCHC Cancelled 30.9 L RDW Std Deviation Cancelled 53.1 H RDW Coeff of Daela Cancelled 15.5 H Plt Count Cancelled 245 MPV Cancelled 10.2 Immature Gran % (Auto) Cancelled Neut % (Auto) Cancelled Lymph % (Auto) Cancelled Hopkins % (Auto) Cancelled Eos % (Auto) Cancelled Baso % (Auto) Cancelled Neut # (Auto) Cancelled Lymph # (Auto) Cancelled Hopkins # (Auto) Cancelled Eos # (Auto) Cancelled Baso # (Auto) Cancelled Immature Gran # (Auto) Cancelled Absolute Nucleated RBC Cancelled 0.07 H Nucleated RBC % (auto) Cancelled 1.0 Neutrophils % (Manual) Cancelled 58.8 Band Neutrophils % Cancelled Lymphocytes % (Manual) Cancelled 29.8 Prolymphocyte % Cancelled Reactive Lymphs % (Man) Cancelled Monocytes % (Manual) Cancelled 9.6 Eosinophils % (Manual) Cancelled 1.8 Basophils % (Manual) Cancelled Metamyelocytes % (Man) Cancelled Myelocytes % (Man) Cancelled Promyelocytes % (Man) Cancelled Blast Cells % (Manual) Cancelled Plasma Cell % (Manual) Cancelled Other Cells % Cancelled Nucleated RBC % Cancelled Neutrophils # (Manual) Cancelled 3.98 Band Neutrophils # Cancelled Total Absolute Neuts Cancelled 3.98 Lymphocytes # (Manual) Cancelled 2.02 Prolymphocyte # Cancelled Reactive Lymphs # Cancelled Total Abs Lymphocytes Cancelled 2.02 Monocytes # (Manual) Cancelled 0.65 H Eosinophils # (Manual) Cancelled 0.12 Basophils # (Manual) Cancelled Metamyelocytes # (Man) Cancelled Myelocytes # (Manual) Cancelled Promyelocytes # (Man) Cancelled Blast Cells # (Man) Cancelled Plasma Cell # (Manual) Cancelled Other Cells # Cancelled Nucleated RBCs # (Man) Cancelled Hypersegmented Neuts Cancelled Hyposegmented Neuts Cancelled Hypogranular Neuts Cancelled Large Granular Lymphs Cancelled # Lrg Granular Lymphs Cancelled Hairy Cells Cancelled Smudge Cells Cancelled Toxic Granulation Cancelled Toxic Vacuolation Cancelled Dohle Bodies Cancelled Fara Rods Cancelled Platelet Estimate Cancelled Hypogranular Platelets Cancelled Clumped Platelets Cancelled Giant Platelets Cancelled Platelet Satelliting Cancelled RBC Morphology Cancelled Polychromasia Cancelled Hypochromasia Cancelled Poikilocytosis Cancelled Basophilic Stippling Cancelled Anisocytosis Cancelled Microcytosis Cancelled Macrocytosis Cancelled Spherocytes Cancelled Pappenheimer Bodies Cancelled Sickle Cells Cancelled Target Cells Cancelled Tear Drop Cells Cancelled Ovalocytes Cancelled Stomatocytes Cancelled [place] Bodies Cancelled Echinocytes Cancelled Acanthocytes (Spur) Cancelled Rouleaux Cancelled RBC Agglutinates Cancelled Schistocytes Cancelled RBC Morph Comment Cancelled Sezary Cell Cancelled Sodium Cancelled Potassium Cancelled Chloride Cancelled Carbon Dioxide Cancelled Anion Gap Cancelled BUN Cancelled Creatinine Cancelled Est Cr Clr Drug Dosing Cancelled Est GFR ( Amer) Cancelled Est GFR (Non-Af Amer) Cancelled BUN/Creatinine Ratio Cancelled Glucose Cancelled Calcium Cancelled Magnesium Cancelled Total Bilirubin Cancelled Direct Bilirubin Cancelled AST Cancelled ALT Cancelled Alkaline Phosphatase Cancelled Troponin I Cancelled Total Protein Cancelled Albumin Cancelled Urine Color Urine Appearance (Clear) Urine pH (4.5-7.5) Ur Specific [place] (1.000-1.030) Urine Protein (Negative) Urine Glucose (UA) (Negative) Urine Ketones (Negative) Urine Blood (Negative) Urine Nitrite (Negative) Urine Bilirubin (Negative) Urine Urobilinogen (Negative) Ur Leukocyte Esterase (Negative) Urine WBC (Auto) (0-5) /hpf Urine RBC (Auto) (0-4) /hpf U Hyaline Cast (Auto) (0-5) /lpf U Epithel Cells (Auto) (0-5) /lpf Urine Bacteria (Auto) (Negative) Urine Yeast SARS-CoV-2, RNA, NAAT (NEGATIVE) 04/14/21 04/14/21 04/14/21 Range/Units 10:26 11:14 11:52 WBC RBC Hgb Hct MCV MCH MCHC RDW Std Deviation RDW Coeff of Adela Plt Count MPV Immature Gran % (Auto) Neut % (Auto) Lymph % (Auto) Hopkins % (Auto) Eos % (Auto) Baso % (Auto) Neut # (Auto) Lymph # (Auto) Hopkins # (Auto) Eos # (Auto) Baso # (Auto) Immature Gran # (Auto) Absolute Nucleated RBC Nucleated RBC % (auto) Neutrophils % (Manual) Band Neutrophils % Lymphocytes % (Manual) Prolymphocyte % Reactive Lymphs % (Man) Monocytes % (Manual) Eosinophils % (Manual) Basophils % (Manual) Metamyelocytes % (Man) Myelocytes % (Man) Promyelocytes % (Man) Blast Cells % (Manual) Plasma Cell % (Manual) Other Cells % Nucleated RBC % Neutrophils # (Manual) Band Neutrophils # Total Absolute Neuts Lymphocytes # (Manual) Prolymphocyte # Reactive Lymphs # Total Abs Lymphocytes Monocytes # (Manual) Eosinophils # (Manual) Basophils # (Manual) Metamyelocytes # (Man) Myelocytes # (Manual) Promyelocytes # (Man) Blast Cells # (Man) Plasma Cell # (Manual) Other Cells # Nucleated RBCs # (Man) Hypersegmented Neuts Hyposegmented Neuts Hypogranular Neuts Large Granular Lymphs # Lrg Granular Lymphs Hairy Cells Smudge Cells Toxic Granulation Toxic Vacuolation Dohle Bodies Fara Rods Platelet Estimate Hypogranular Platelets Clumped Platelets Giant Platelets Platelet Satelliting RBC Morphology Polychromasia Hypochromasia Poikilocytosis Basophilic Stippling Anisocytosis Microcytosis Macrocytosis Spherocytes Pappenheimer Bodies Sickle Cells Target Cells Tear Drop Cells Ovalocytes Stomatocytes [place] Bodies Echinocytes Acanthocytes (Spur) Rouleaux RBC Agglutinates Schistocytes RBC Morph Comment Sezary Cell Sodium 138 Potassium 4.1 Chloride 107 Carbon Dioxide 25 Anion Gap 6 BUN 22 Creatinine 0.80 Est Cr Clr Drug Dosing 66.7 Est GFR ( Amer) 83.0 Est GFR (Non-Af Amer) 71.6 BUN/Creatinine Ratio 27.5 H Glucose 90 Calcium 7.7 L Magnesium 1.9 Total Bilirubin 0.4 Direct Bilirubin 0.1 AST 9 L ALT 8 Alkaline Phosphatase 43 Troponin I < 0.03 Total Protein 5.3 L Albumin 2.9 L Urine Color Dark Yellow Urine Appearance Cloudy A (Clear) Urine pH 5.0 (4.5-7.5) Ur Specific [place] 1.033 H (1.000-1.030) Urine Protein Trace H (Negative) Urine Glucose (UA) Negative (Negative) Urine Ketones Trace H (Negative) Urine Blood Trace H (Negative) Urine Nitrite Negative (Negative) Urine Bilirubin Negative (Negative) Urine Urobilinogen Negative (Negative) Ur Leukocyte Esterase Trace H (Negative) Urine WBC (Auto) 5-10 H (0-5) /hpf Urine RBC (Auto) 0-4 (0-4) /hpf U Hyaline Cast (Auto) 1-5 (0-5) /lpf U Epithel Cells (Auto) >30 H (0-5) /lpf Urine Bacteria (Auto) 1+ H (Negative) Urine Yeast Not Reportable SARS-CoV-2, RNA, NAAT NEGATIVE (NEGATIVE) 04/14/21 Range/Units 14:44 WBC RBC Hgb Hct MCV MCH MCHC RDW Std Deviation RDW Coeff of Adela Plt Count MPV Immature Gran % (Auto) Neut % (Auto) Lymph % (Auto) Hopkins % (Auto) Eos % (Auto) Baso % (Auto) Neut # (Auto) Lymph # (Auto) Hopkins # (Auto) Eos # (Auto) Baso # (Auto) Immature Gran # (Auto) Absolute Nucleated RBC Nucleated RBC % (auto) Neutrophils % (Manual) Band Neutrophils % Lymphocytes % (Manual) Prolymphocyte % Reactive Lymphs % (Man) Monocytes % (Manual) Eosinophils % (Manual) Basophils % (Manual) Metamyelocytes % (Man) Myelocytes % (Man) Promyelocytes % (Man) Blast Cells % (Manual) Plasma Cell % (Manual) Other Cells % Nucleated RBC % Neutrophils # (Manual) Band Neutrophils # Total Absolute Neuts Lymphocytes # (Manual) Prolymphocyte # Reactive Lymphs # Total Abs Lymphocytes Monocytes # (Manual) Eosinophils # (Manual) Basophils # (Manual) Metamyelocytes # (Man) Myelocytes # (Manual) Promyelocytes # (Man) Blast Cells # (Man) Plasma Cell # (Manual) Other Cells # Nucleated RBCs # (Man) Hypersegmented Neuts Hyposegmented Neuts Hypogranular Neuts Large Granular Lymphs # Lrg Granular Lymphs Hairy Cells Smudge Cells Toxic Granulation Toxic Vacuolation Dohle Bodies Fara Rods Platelet Estimate Hypogranular Platelets Clumped Platelets Giant Platelets Platelet Satelliting RBC Morphology Polychromasia Hypochromasia Poikilocytosis Basophilic Stippling Anisocytosis Microcytosis Macrocytosis Spherocytes Pappenheimer Bodies Sickle Cells Target Cells Tear Drop Cells Ovalocytes Stomatocytes [place] Bodies Echinocytes Acanthocytes (Spur) Rouleaux RBC Agglutinates Schistocytes RBC Morph Comment Sezary Cell Sodium Potassium Chloride Carbon Dioxide Anion Gap BUN Creatinine Est Cr Clr Drug Dosing Est GFR ( Amer) Est GFR (Non-Af Amer) BUN/Creatinine Ratio Glucose Calcium Magnesium Total Bilirubin Direct Bilirubin AST ALT Alkaline Phosphatase Troponin I Total Protein Albumin Urine Color Yellow Urine Appearance Clear (Clear) Urine pH 5.0 (4.5-7.5) Ur Specific [place] 1.028 (1.000-1.030) Urine Protein Trace H (Negative) Urine Glucose (UA) Negative (Negative) Urine Ketones Trace H (Negative) Urine Blood 1+ H (Negative) Urine Nitrite Negative (Negative) Urine Bilirubin Negative (Negative) Urine Urobilinogen Negative (Negative) Ur Leukocyte Esterase Trace H (Negative) Urine WBC (Auto) 1-5 (0-5) /hpf Urine RBC (Auto) 5-10 H (0-4) /hpf U Hyaline Cast (Auto) 1-5 (0-5) /lpf U Epithel Cells (Auto) >30 H (0-5) /lpf Urine Bacteria (Auto) Negative (Negative) Urine Yeast SARS-CoV-2, RNA, NAAT (NEGATIVE) Administered Medications Discontinued Medications Acetaminophen (Acetaminophen 500 Mg Tab) 1,000 mg PO NOW STA Stop: 04/14/21 12:11 Last Admin: 04/14/21 12:56 Dose: 1,000 mg Documented by: [id number] Sodium Chloride (Nss) 500 mls @ 999 mls/hr IV .Q31M ONE Stop: 04/14/21 09:44 Last Infusion: 04/14/21 10:10 Dose: 0 mls/hr Documented by: [id number] Admin: 04/14/21 09:36 Dose: 999 mls/hr Documented by: [id number] Ceftriaxone Sodium (Rocephin) 2,000 mg in 70 mls @ 140 mls/hr IV NOW STA Stop: 04/14/21 13:36 Last Admin: 04/14/21 15:01 Dose: 140 mls/hr Documented by: [id number] Pantoprazole Sodium 40 mg/ (Syringe) 10 mls @ 5 mls/min IV NOW STA Stop: 04/14/21 13:13 Last Admin: 04/14/21 14:52 Dose: 5 mls/min Documented by: [id number] Ioversol (Optiray 320 100ml) 95 ml IV ONCE ONE Stop: 04/14/21 14:25 Last Admin: 04/14/21 14:19 Dose: 95 ml Documented by: [id number] Polyethylene Glycol (Polyethylene (Miralax) 17 Gm Pack) 17 gm PO ONE STA Stop: 04/14/21 13:26 Last Admin: 04/14/21 14:59 Dose: 17 gm Documented by: [id number] Imaging Data Radiologist's Impression: Head CT 04/14/21 09:14 CT head/brain wo con CLINICAL HISTORY: acute confusion, no resolved COMPARISON STUDY: 03/31/2019 CT DOSE: 690.05 mGycm TECHNIQUE: Standard CT of the Brain was performed without IV contrast. A dose lowering technique was utilized adhering to the principles of ALARA. FINDINGS: Extraaxial space: There is no evidence for subdural hematoma. There are no extra-axial fluid collections. Ventricles and cisterns: The ventricles are normal in size and configuration. There is no evidence for midline shift or mass effect. Parenchyma: There is no subarachnoid or intraparenchymal hemorrhage. There is no evidence for an acute infarct or cerebral edema. There is mild cerebral cortical atrophy and decreased attenuation in the periventricular white matter representing remote small vessel disease. There are no gross mass lesions. Osseous structures: There is no evidence for an acute fracture. The visualized paranasal sinuses are clear. The mastoid air cells are clear bilaterally. Soft tissues: There is no evidence for focal soft tissue swelling. IMPRESSION: No acute intracerebral pathology. Mild cerebral cortical atrophy and remote small vessel disease. ACT 112: Negative or not required by law. Electronically signed by: Juanito Mancilla M.D. 04/14/2021 9:53 AM Chest X-Ray 04/14/21 09:15 XR chest 1V portable CLINICAL HISTORY: acute confusion. Evaluate cardiopulmonary status. Previous smoker. COMPARISON STUDY: 03/08/2021 TECHNIQUE: 1 view of the chest FINDINGS: Single frontal view of the chest demonstrates the cardiomediastinal silhouette to be within normal limits. There is a decreased inspiratory effort with elevation of the hemidiaphragms and crowding of the bronchovascular markings at the lung bases and centrally. The lungs are clear of alveolar opacities. There is no evidence for pleural effusion. There is no evidence for vascular congestion. There is no acute osseous pathology. IMPRESSION: There is a decreased inspiratory effort with otherwise no acute chest disease. ACT 112: Negative or not required by law. Electronically signed by: Juanito Mancilla M.D. 04/14/2021 9:38 AM Abdomen/Pelvis CT 04/14/21 13:[address] WITH IV CONTRAST CT DOSE: 1163.80 mGy.cm HISTORY: generalized abdominal pain, altered mental state TECHNIQUE: Multiaxial CT images of the abdomen and pelvis were performed following the use of intravenous contrast. A dose lowering technique was utilized adhering to the principles of ALARA. COMPARISON STUDY: Abdomen and pelvis CT 08/18/2020. FINDINGS: Mild dependent changes seen within the lung bases posteriorly. A 4 mm subpleural nodule within the basal left lower lobe on image 55 is new from the prior study. Therefore, this likely represents atelectasis. No pneumoperitoneum. No pneumatosis. No fractures within the visualized osseous structures. There is a tiny fat-containing umbilical hernia. Subcutaneous fat stranding within the left anterior thigh. No hepatic or splenic masses. The main portal vein is patent. Normal caliber abdominal aorta with mild calcified plaque. No retroperitoneal lymphadenopathy. The adrenal glands and pancreas unremarkable. There are are a few subcentimeter hypodensities within the kidneys which are technically too small to characterize but statistically represent cysts. No hydronephrosis. A 4 mm stone within the right kidney, unchanged. The gallbladder is mildly distended and there is mild gallbladder wall thickening with minimal adjacent inflammatory change. There may be a few punctate stones near the neck of the gallbladder. Therefore, these findings likely represent acute cholecystitis. No pelvic free fluid. Normal bladder. Prior hysterectomy. A few colonic diverticula. No evidence for acute diverticulitis. No bowel wall thickening or obstruction. Normal appendix. IMPRESSION: 1. Distended gallbladder with mild gallbladder wall thickening and adjacent inflammatory change. There may be a few punctate stones near the neck of the gallbladder. Therefore, these findings are highly suspicious for acute cholecystitis. Surgical consultation and/or nuclear medicine HIDA scan/ultrasound can be used for further evaluation. 2. Right-sided nephrolithiasis. No hydronephrosis. 3. No bowel wall thickening or obstruction. ACT 112: Negative or not required by law. Electronically signed by: Dave Jones M.D. 04/14/2021 2:39 PM Discharge Plan Visit Data Chief Complaint: Confusion Stated Complaint: AMS ED Provider: Roel Santoro Discharge Problem: Acute cognitive decline, Altered mental status, Anemia Forms Stand Alone Forms: [employer] Prescriptions Prescriptions: No Action (DME) lucretia alvarado See Dose Instructions .ROUTE .MEDSUPPLY Qty: 1 RF: 0 gabapentin 600 mg tablet 600 mg PO TID 90 Days Qty: 270 RF: 1 atorvastatin [Lipitor] 20 mg tablet 20 mg PO QAM Qty: 90 RF: 3 omeprazole magnesium [Prilosec OTC] 20 mg tablet,delayed release (DR/EC) 20 mg PO QAM Qty: 90 RF: 3 duloxetine 60 mg capsule,delayed release(DR/EC) 60 mg PO QAM Qty: 90 RF: 1 propranolol 120 mg capsule,extended release 24 hr 120 mg PO QAM Qty: 90 RF: 1 temazepam 30 mg capsule 30 mg PO HS Qty: 90 RF: 0 prednisone 2.5 mg tablet 5 mg PO QAM Qty: 180 RF: 1 ketorolac 10 mg tablet 10 mg PO Q6 Qty: 20 RF: 0 tramadol 50 mg tablet 50 - 100 mg PO Q8H PRN (Reason: pain) Qty: 40 RF: 0 ondansetron HCl 4 mg tablet 4 mg PO Q6 PRN (Reason: nausea) Qty: 20 RF: 1 aspirin [Adult Aspirin Regimen] 81 mg tablet,delayed release (DR/EC) 81 mg PO BID 45 Days Qty: 90 RF: 3 acetaminophen 500 mg capsule 1,000 mg PO TID 30 Days Qty: 180 RF: 0 meclizine 12.5 mg Tablet 12.5 mg PO TID PRN (Reason: Vertigo) RF: 0 cholecalciferol (vitamin D3) [Vitamin D3] 5,000 unit Tablet 5,000 unit PO QAM RF: 0 sennosides-docusate sodium [Senokot-S] 8.6-50 mg tablet 1 tab-cap PO HS RF: 0 Referrals Referrals: Sabrina Paulino MD [Primary Care Provider] -
--- NOTE | 2021-04-14 09:39 | XRay Report ---
XR chest 1V portable CLINICAL HISTORY: acute confusion. Evaluate cardiopulmonary status. Previous smoker. COMPARISON STUDY: 03/08/2021 TECHNIQUE: 1 view of the chest FINDINGS: Single frontal view of the chest demonstrates the cardiomediastinal silhouette to be within normal li mits. There is a decreased inspiratory effort with elevation of the hemidiaphragms and crowding of th e bronchovascular markings at the lung bases and centrally. The lungs are clear of alveolar opacities . There is no evidence for pleural effusion. There is no evidence for vascular congestion. There is n o acute osseous pathology. IMPRESSION: There is a decreased inspiratory effort with otherwise no acute chest disease. ACT 112: Negative or not required by law. Electronically signed by: Juanito Mancilla M.D. 04/14/2021 9:38 AM
--- NOTE | 2021-04-14 09:55 | CT Scan Report ---
CT head/brain wo con CLINICAL HISTORY: acute confusion, no resolved COMPARISON STUDY: 03/31/2019 CT DOSE: 690.05 mGycm TECHNIQUE: Standard CT of the Brain was performed without IV contrast. A dose lowering technique was utilized adhering to the principles of ALARA. FINDINGS: Extraaxial space: There is no evidence for subdural hematoma. There are no extra-axial fluid collecti ons. Ventricles and cisterns: The ventricles are normal in size and configuration. There is no evidence f or midline shift or mass effect. Parenchyma: There is no subarachnoid or intraparenchymal hemorrhage. There is no evidence for an acu te infarct or cerebral edema. There is mild cerebral cortical atrophy and decreased attenuation in th e periventricular white matter representing remote small vessel disease. There are no gross mass lesi ons. Osseous structures: There is no evidence for an acute fracture. The visualized paranasal sinuses are clear. The mastoid air cells are clear bilaterally. Soft tissues: There is no evidence for focal soft tissue swelling. IMPRESSION: No acute intracerebral pathology. Mild cerebral cortical atrophy and remote small vessel disease. ACT 112: Negative or not required by law. Electronically signed by: Juanito Mancilla M.D. 04/14/2021 9:53 AM
[2021-04-14 10:38] LABS: Hematocrit (blood only) 27.2 % (37-47); Hemoglobin 8.4 g/dL (12.0-16.0); Mean Corpuscular Hgb Conc 30.9 g/dL (32-36); Mean Corpuscular Volume 93.8 fL (80-100); Mean Platelet Volume 10.2 fL (7.4-10.4); Nucleated RBC # (auto) 0.07 K/uL (0-0); Platelet Count 245 K/uL (130-400); RDW Coefficient of Variation 15.5 % (11.5-14.5); RDW Standard Deviation 53.1 fL (36.4-46.3); White Blood Count 6.77 K/uL (4.8-10.8)
[2021-04-14 10:54] LABS: ALC (manual) 2.02 K/uL (1.2-3.4); ANC (manual) 3.98 K/uL (1.4-6.5); Eosinophils # (manual) 0.12 K/uL (0-0.5); Eosinophils % (manual) 1.8 %; Lymphocytes # (manual) 2.02 K/uL (1.2-3.4); Lymphocytes % (manual) 29.8 %; Monocytes # (manual) 0.65 K/uL (0.11-0.59); Monocytes % (manual) 9.6 %; Neutrophils # (manual) 3.98 K/uL (1.4-6.5); Neutrophils % (manual) 58.8 %
[2021-04-14 11:06] LABS: Troponin I < 0.03 ng/ml (0-0.04)
[2021-04-14 11:21] LABS: Alanine Aminotransferase 8 U/L (7-52); Albumin Level 2.9 gm/dl (3.4-5.0); Alkaline Phosphatase 43 U/L (34-104); Anion Gap 6 (3-11); Aspartate Aminotransferase 9 U/L (13-39); BUN Creatinine Ratio 27.5 (10-20); Bilirubin Direct 0.1 mg/dl (0-0.2); Bilirubin,Total 0.4 mg/dl (0.2-1.0); Blood Urea Nitrogen 22 mg/dl (6-23); Calcium 7.7 mg/dl (8.5-10.1); Carbon Dioxide 25 mmol/L (21-32); Chloride 107 mmol/L (98-107); Creatinine Clr Calc Pharmacy 66.7 ml/min; Est GFR (Non-African American) 71.6 ml/min; Glucose 90 mg/dl (70-99(Fasting)); Magnesium 1.9 mg/dl (1.7-2.4); Potassium 4.1 mmol/L (3.5-5.1); Sodium 138 mmol/L (136-145); Total Protein 5.3 gm/dl (6.0-8.3)
[2021-04-14 11:46] LABS: Appearance Urine Cloudy (Clear); Bacteria Urine Automated 1+ (Negative); Bilirubin Urine Negative (Negative); Blood Urine Trace (Negative); Color Urine Dark Yellow; Epithelial Cell Urine Auto >30 /lpf (0-5); Glucose Urine UA Negative (Negative); Ketones Urine Trace (Negative); Leukocyte Esterase Urine Trace (Negative); Nitrite Urine Negative (Negative); Protein Urine Trace (Negative); RBC Urine Automated 0-4 /hpf (0-4); Specific Gravity Urine 1.033 (1.000-1.030); Urobilinogen Urine Negative (Negative)
[2021-04-14] MEDS ORDERED: ACETAMINOPHEN 500 MG TAB PO STA (12:10)
--- NOTE | 2021-04-14 12:45 | History & Physical Report ---
Date of Service April 14, 2021 Assessment & Plan (1) Altered mental state: Plan: Suspect medication induced on gabapentin, keotrolac and tramadol Tramadol prescription is written Q8H so it dispenses at 4:30am this morning and she has been taking regardless of pain Possible also exacerbated by post operative anemia +/-GI bleed as below Possible also UTI contributing although appears to be mostly back to her baseline at this point. (2) UTI (urinary tract infection): Plan: 2 days of dysuria. Right CVA tenderness ?pyelonephritis. CT A/P with IV contrast pending. Blood and urine cultures. Repeat UA and culture with straight cath sample as clean catch appears contaminated. Start ceftriaxone 2g IV daily (3) Status post left knee replacement: Plan: Consult ortho (4) Melena: Plan: Questionable melena but given ketorolac, prednisone and aspirin use with GERD already not controlled with omeprazole will given pantoprazole 40mg IV now and repeat H&H @ 6pm. CT A/P for generalized abdominal pain (5) Postoperative anemia: Plan: EBL during operation 50ml Hgb 12 pre-op -> 8.4 post-op (on admission 04/14) Repeat H&H with type and screen at 6pm (6) Peripheral neuropathy: Plan: Continue gabapentin (7) GERD without esophagitis: Plan: Switch omeprazole to pantoprazole 40mg IV BID (8) Essential tremor: Plan: Continue propranolol ER 120mg with hold parameters (9) PMR (polymyalgia rheumatica): Plan: Continue prednisone 5mg PO daily (10) Hyperlipidemia: Plan: Continue atorvastatin 20mg PO daily (11) Odynophagia: Plan: Long standing but exacerbated. ?secondary to reflux, recommend GI follow up Plan: VTE Prophyalxis - continue orthopedic regimen of aspirin 81mg PO BID unless fecal occult blood positive or anemia getting worse. Diet - regular Disposition - observation status to med/tele Admission and Anticipated Discharge Date Admission Date: April 14, 2021 History of Present Illness Chief Complaint: Altered mental state Primary Care Provider: Sabrina Paulino MD Emi Alexander is a 76 year old female s/p TKA performed by Dr Zelaya for degenerative joint disease three days ago who presents to the ER with altered mental status. She reports being her normal self yesterday. She has a pill dispenser at home which has been dispensing her pain medication every 8 hours as needed. However this means her tramadol comes out at around 4:30am in the morning. She is supposed to take this only if she has pain however she reports just taking whatever the machine dispenses and is unsure why it comes out so early in the morning. On further review of systems she reports having dysuria for 2 days. Additionally she has been having black stool although also constipated. In the ER hemoglobin 8.4 from pre-op hemoglobin 12.0. She is mostly back to her baseline per at bedside at this time. She was referred to medicine for admission and ongoing management of altered mental state. Allergies Allergy/AdvReac Type Severity Reaction Status Date / Time shellfish derived Allergy Intermediate Hives Verified 04/14/21 11:11 No Known Drug Allergies Allergy Verified 04/14/21 11:11 Home Medications Medication Instructions Recorded Confirmed Type cholecalciferol (vitamin D3) 125 5,000 unit PO QAM 08/06/18 04/14/21 History mcg (5,000 unit) tablet (Vitamin D3) meclizine 12.5 mg tablet 12.5 mg PO TID PRN 08/06/18 04/14/21 History walker #1 ea 01/06/19 04/03/21 Rx gabapentin 600 mg tablet 600 mg PO TID 90 Days #270 tab 12/09/20 04/14/21 Rx atorvastatin 20 mg tablet (Lipitor) 20 mg PO QAM #90 tab 01/04/21 04/14/21 Rx omeprazole magnesium 20 mg 20 mg PO QAM #90 tab 01/04/21 04/14/21 Rx tablet,delayed release (Prilosec OTC) duloxetine 60 mg capsule,delayed 60 mg PO QAM #90 cap 03/02/21 04/14/21 Rx release propranolol 120 mg capsule,24 120 mg PO QAM #90 cap 03/15/21 04/14/21 Rx hr,extended release temazepam 30 mg capsule 30 mg PO HS #90 cap 03/28/21 04/14/21 Rx prednisone 2.5 mg tablet 5 mg PO QAM #180 tab 03/30/21 04/14/21 Rx acetaminophen 500 mg capsule 1,000 mg PO TID 30 Days #180 cap 04/07/21 04/14/21 Rx aspirin 81 mg tablet,delayed 81 mg PO BID 45 Days #90 tab 04/07/21 04/14/21 Rx release (Adult Aspirin Regimen) ketorolac 10 mg tablet 10 mg PO Q6 #20 tab 04/07/21 04/14/21 Rx ondansetron HCl 4 mg tablet 4 mg PO Q6 PRN #20 tab 04/07/21 04/14/21 Rx tramadol 50 mg tablet 50 - 100 mg PO Q8H PRN #40 tab 04/07/21 04/14/21 Rx sennosides 8.6 mg-docusate sodium 1 tab-cap PO HS 04/14/21 04/14/21 History 50 mg tablet (Senokot-S) Past Med/Surg History Medical History (Updated 04/14/21 @ 16:57 by Renetta Paulino PA-C) Anxiety disorder Benign breast lumps Essential tremor follows with Dr. Giron [place] [facility]-on propranolol GERD (gastroesophageal reflux disease) controlled, stable per pt History of iron deficiency anemia pre-op H&H 02/2021: 12.3/39 History of kidney stones punctate right renal stone, negative imaging in the urinary tracts, plan for 1 year f/u per [place] [facility] 09/29/2020 office note Hyperlipidemia Left carpal tunnel syndrome Left hand tendonitis Left knee DJD Meniere disease Neuropathy idiopathic peripheral neuropathy per [place] [facility] 12/2020 note-on duloxetine and gabapentin Osteoarthritis PMR (polymyalgia rheumatica) on daily prednisone Pulmonary nodule monitoring, follows with PCP Right knee DJD Spinal stenosis Vitamin D deficiency Surgical History (Updated 04/14/21 @ 12:54 by Sal Brooks MD) History of carpal tunnel release right History of cataract surgery bilat History of colonoscopy History of lithotripsy History of lumpectomy of both breasts BENIGN History of surgery BLADDER SLING History of tonsillectomy History of tooth extraction Status post right knee replacement 08/20/2019: SAB at L3, 3 attempts + PNB. No issues per anesthesia post-op progress note. Status post JEZ-BSO Family History Mother Diabetes Family history of diabetes mellitus Myocardial infarction Hypertension Stroke Heart disease Aunt Breast cancer Father Prostate cancer Brother Hearing loss Other No family history of adverse response to anesthesia No family history of bleeding disorder Denies family history of Ovarian cancer Colorectal cancer Social History Smoking Status: Former smoker packs per day: 0.5; Years Smoked: 18.0; Cigarettes Per Day: 1 PPD; Smoking End Date: 1969; Second Hand Exposure: No; Do You Dip or Chew Tobacco: No; Hx Alcohol Use: Yes Alcohol type: beer Hx Substance Use: No Preferred Language: Bulgarian Communication Ability: Effective Visual Impairment: No Limitations Hearing Ability: Normal 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 Beliefs That Will Affect Care: None marital status: Current Living Situation: Family Current Living Situation Comment: Granddaughter and grandson in law current occupational status: retired How many Children do You have: 1 Other Information That Helps Us Care for You: No Feels Safe at Home: Yes Safety Concerns: Feels Safe At This Time Childhood Exposure to Second-Hand Smoke: No caffeine: Yes Dental Care, Regularly: Yes Physical Activity Frequency: Other Seatbelt Use: always Sunscreen Use: Yes Assistive Devices: Walker Review of Systems Review of Systems: All systems reviewed & are unremarkable except as noted in HPI & below Physical Exam Constitutional: WD/WN, vitals as above Eyes: no conjunctival abnormality ENMT: external ear and nose normal, oropharynx normal Neck: trachea midline, no thyromegaly Respiratory: normal respiratory effort, lungs clear to auscultation Cardiovascular: RRR, no murmur, no edema Gastrointestinal (Abdomen): Inspection/Auscultation: normal bowel sounds Percussion/Palpation: + abdomen tender (suprapubic and epigastric) and abdomen soft; no guarding and abdomen not rigid Musculoskeletal: no cyanosis or clubbing, extremities motor strength 5/5 Skin: no rashes, warm and dry Neurologic: moves all extremities and awake; not confused Psychiatric: A+Ox3, euthymic affect Genitourinary: + CVA tenderness (right) Results & Data Results & Data ([facility]) Vital Signs (Past 12 Hours) Vital Signs Temp Pulse Pulse Resp BP BP Pulse Ox 04/14/21 12:05 90 90 04/14/21 11:10 88 18 139/57 L 94 04/14/21 10:00 85 20 122/92 96 04/14/21 09:01 37.4 C 92 H 18 120/71 93 Laboratory Results Abnormal lab results 04/14/21 04/14/21 04/14/21 Range/Units 10:26 10:26 11:14 RBC 2.90 L (4.2-5.4) M/uL Hgb 8.4 L (12.0-16.0) g/dL Hct 27.2 L (37-47) % MCHC 30.9 L (32-36) g/dL RDW Std Deviation 53.1 H (36.4-46.3) fL RDW Coeff of Adela 15.5 H (11.5-14.5) % Absolute Nucleated RBC 0.07 H (0-0) K/uL Monocytes # (Manual) 0.65 H (0.11-0.59) K/uL BUN/Creatinine Ratio 27.5 H (10-20) Calcium 7.7 L (8.5-10.1) mg/dl AST 9 L (13-39) U/L Total Protein 5.3 L (6.0-8.3) gm/dl Albumin 2.9 L (3.4-5.0) gm/dl Urine Appearance Cloudy A (Clear) Ur Specific [place] 1.033 H (1.000-1.030) Urine Protein Trace H (Negative) Urine Ketones Trace H (Negative) Urine Blood Trace H (Negative) Ur Leukocyte Esterase Trace H (Negative) Urine WBC (Auto) 5-10 H (0-5) /hpf U Epithel Cells (Auto) >30 H (0-5) /lpf Urine Bacteria (Auto) 1+ H (Negative) Diagnostic Findings XR chest 1V portable CLINICAL HISTORY: acute confusion. Evaluate cardiopulmonary status. Previous smoker. COMPARISON STUDY: 03/08/2021 TECHNIQUE: 1 view of the chest FINDINGS: Single frontal view of the chest demonstrates the cardiomediastinal silhouette to be within normal limits. There is a decreased inspiratory effort with elevation of the hemidiaphragms and crowding of the bronchovascular markings at the lung bases and centrally. The lungs are clear of alveolar opacities. There is no evidence for pleural effusion. There is no evidence for vascular congestion. There is no acute osseous pathology. IMPRESSION: There is a decreased inspiratory effort with otherwise no acute chest disease. CT head/brain wo con CLINICAL HISTORY: acute confusion, no resolved COMPARISON STUDY: 03/31/2019 CT DOSE: 690.05 mGycm TECHNIQUE: Standard CT of the Brain was performed without IV contrast. A dose lowering technique was utilized adhering to the principles of ALARA. FINDINGS: Extraaxial space: There is no evidence for subdural hematoma. There are no extra-axial fluid collections. Ventricles and cisterns: The ventricles are normal in size and configuration. There is no evidence for midline shift or mass effect. Parenchyma: There is no subarachnoid or intraparenchymal hemorrhage. There is no evidence for an acute infarct or cerebral edema. There is mild cerebral cortical atrophy and decreased attenuation in the periventricular white matter representing remote small vessel disease. There are no gross mass lesions. Osseous structures: There is no evidence for an acute fracture. The visualized paranasal sinuses are clear. The mastoid air cells are clear bilaterally. Soft tissues: There is no evidence for focal soft tissue swelling. IMPRESSION: No acute intracerebral pathology. Mild cerebral cortical atrophy and remote small vessel disease. Medications Administered ER Medications Given: Acetaminophen 1000mg PO NSS 500ml bolus ECG Indication: altered mental status Rate (beats per minute): 91 Rhythm: normal sinus Findings: + other (left atrial enlargement) Comparison ECG Date: from (March 08, 2021) Change: the following changes noted (low voltage QRS, borderline criteria for anterolateral infacrts is now present) Code Status & VTE Plan Code Status Full VTE Prophylaxis Plan VTE Prophylaxis will be ordered: Yes PG Care Time/CCT Total # of Minutes Spent Total Time Spent with Patient: Total time spent is greater than 50% in coordination of care (as documented) at patient's floor/unit and/or counseling patient: Coding Level of Care Code INT OBSERVATION CARE 70M LVL 3 Diagnoses Altered mental state R41.82 Peripheral neuropathy G62.9 GERD without esophagitis K21.9 Essential tremor G25.0 PMR (polymyalgia rheumatica) M35.3 Hyperlipidemia E78.5 Status post left knee replacement Z96.652 Postoperative anemia D64.9 UTI (urinary tract infection) N39.0 Melena K92.1 Odynophagia R13.10
[2021-04-14] MEDS ORDERED: cefTRIAXone SODIUM 2,000 MG/70 ML BAG IV STA (13:07)
[2021-04-14] MEDS ORDERED: PANTOprazole 40 MG in SYRINGE 0 ML IV STA (13:12)
[2021-04-14] MEDS ORDERED: POLYETHYLENE (MIRALAX) 17 GM PACK PO STA (13:25)
[2021-04-14] MEDS ORDERED: OPTIRAY 320 100ml IV ONE (14:24)
--- NOTE | 2021-04-14 14:40 | CT Scan Report ---
ABDOMEN AND PELVIS CT WITH IV CONTRAST CT DOSE: 1163.80 mGy.cm HISTORY: generalized abdominal pain, altered mental state TECHNIQUE: Multiaxial CT images of the abdomen and pelvis were performed following the use of intrave nous contrast. A dose lowering technique was utilized adhering to the principles of ALARA. COMPARISON STUDY: Abdomen and pelvis CT 08/18/2020. FINDINGS: Mild dependent changes seen within the lung bases posteriorly. A 4 mm subpleural nodule wit hin the basal left lower lobe on image 55 is new from the prior study. Therefore, this likely represe nts atelectasis. No pneumoperitoneum. No pneumatosis. No fractures within the visualized osseous stru ctures. There is a tiny fat-containing umbilical hernia. Subcutaneous fat stranding within the left a nterior thigh. No hepatic or splenic masses. The main portal vein is patent. Normal caliber abdominal aorta with mild calcified plaque. No retroperitoneal lymphadenopathy. The adrenal glands and pancrea s unremarkable. There are are a few subcentimeter hypodensities within the kidneys which are technica lly too small to characterize but statistically represent cysts. No hydronephrosis. A 4 mm stone with in the right kidney, unchanged. The gallbladder is mildly distended and there is mild gallbladder wal l thickening with minimal adjacent inflammatory change. There may be a few punctate stones near the n maritza of the gallbladder. Therefore, these findings likely represent acute cholecystitis. No pelvic krunal e fluid. Normal bladder. Prior hysterectomy. A few colonic diverticula. No evidence for acute diverti culitis. No bowel wall thickening or obstruction. Normal appendix. IMPRESSION: 1. Distended gallbladder with mild gallbladder wall thickening and adjacent inflammatory change. Ther e may be a few punctate stones near the neck of the gallbladder. Therefore, these findings are highly suspicious for acute cholecystitis. Surgical consultation and/or nuclear medicine HIDA scan/ultrasou nd can be used for further evaluation. 2. Right-sided nephrolithiasis. No hydronephrosis. 3. No bowel wall thickening or obstruction. ACT 112: Negative or not required by law. Electronically signed by: Dave Jones M.D. 04/14/2021 2:39 PM
[2021-04-14 15:04] LABS: Appearance Urine Clear (Clear); Bacteria Urine Automated Negative (Negative); Bilirubin Urine Negative (Negative); Blood Urine 1+ (Negative); Color Urine Yellow; Epithelial Cell Urine Auto >30 /lpf (0-5); Glucose Urine UA Negative (Negative); Ketones Urine Trace (Negative); Leukocyte Esterase Urine Trace (Negative); Nitrite Urine Negative (Negative); Protein Urine Trace (Negative); Specific Gravity Urine 1.028 (1.000-1.030); Urobilinogen Urine Negative (Negative)
[2021-04-14] MEDS ORDERED: ALUMINUM/MAGNESIUM SUSP 30 ML UDC PO PRN (16:11)
[2021-04-14] MEDS ORDERED: ONDANSETRON INJ 2 MG/ML 2 ML VIAL IV PRN (16:11)
--- NOTE | 2021-04-14 17:02 | Surgery Consultation ---
Date of Consultation April 14, 2021 Assessment & Plan (1) Altered mental status: (2) Melena: (3) UTI (urinary tract infection): (4) Postoperative anemia: (5) Abnormal CT scan, gallbladder: 76 year-old female who is currently 3 days s/p left total knee arthroplasty who presented to ED via ambulance for altered mental status. She was found to have drop in hemoglobin form 12 --> 8 (preop to ED) and questionable UTI. Her labs showed no leukocytosis, t. bili and lfts and alk phos wnl. CT scan abdomen/pelvis showing distended gallbladder with minimal wall thickening and pericholecystic fluid concerning for acute cholecystitis. Gallstones possibly in neck of gallbladder. Abdominal examination only with mild tenderness in RUQ on deep palpation, negative Paiz sign, no peritonitis or guarding. Plan: Discussed with patient CT scan findings concerning for possible cholecystitis and gallstones even though her labs and exam do not completely suggest acute cholecystitis. She does take oral steroid which could be masking her pain. Discussed given the acute mental status change, possible blood loss anemia, and UTI would like to observe and repeat labs and abdominal examination tomorrow. May need laparoscopic cholecystectomy this admission IV Ceftriaxone clear liquids, npo after midnight am labs cbc, bmp, liver profile Discussed with Dr. Kunz who agrees with above. Patient seen and examined and agree with above plan. Risky surgical candidate. Check HIDA. History of Present Illness Reason for Consultation: questionable cholecystitis Requesting Physician: Sal Brooks MD Attending Physician: Sal Brooks MD History of Present Illness Emi is a 76 year-old female who just recently had a left total knee arthroplasty on 04/11/[address] Zelaya who presented to emergency department via ambulance due to altered mental status. present in the room states they woke up this morning at 7 am and she was complaining of being cold and then she was acting very weird. Very confused and they called the ambulance. She states she was eating well at home since surgery and that she had some mild abdominal discomfort but thought it was due to being constipated. No changes in her bowels, no blood in stools, no black stools. States she also had dysuria for two day since the surgery. No blood in urine. Was able to eat without abdominal pain, nausea or vomiting. No prior history of gallbladder issues . No prior abdominal surgeries. She does have history of GERD and hiatal hernia and noticed her reflux increased in last few days. Was taking Toradol for postop pain as prescribed by Dr. Zelaya. Allergies Allergy/AdvReac Type Severity Reaction Status Date / Time shellfish derived Allergy Intermediate Hives Verified 04/14/21 11:11 No Known Drug Allergies Allergy Verified 04/14/21 11:11 Home Medications Medication Instructions Recorded Confirmed Type cholecalciferol (vitamin D3) 125 5,000 unit PO QAM 08/06/18 04/14/21 History mcg (5,000 unit) tablet (Vitamin D3) meclizine 12.5 mg tablet 12.5 mg PO TID PRN 08/06/18 04/14/21 History walker #1 ea 01/06/19 04/03/21 Rx gabapentin 600 mg tablet 600 mg PO TID 90 Days #270 tab 12/09/20 04/14/21 Rx atorvastatin 20 mg tablet (Lipitor) 20 mg PO QAM #90 tab 01/04/21 04/14/21 Rx omeprazole magnesium 20 mg 20 mg PO QAM #90 tab 01/04/21 04/14/21 Rx tablet,delayed release (Prilosec OTC) duloxetine 60 mg capsule,delayed 60 mg PO QAM #90 cap 03/02/21 04/14/21 Rx release propranolol 120 mg capsule,24 120 mg PO QAM #90 cap 03/15/21 04/14/21 Rx hr,extended release temazepam 30 mg capsule 30 mg PO HS #90 cap 03/28/21 04/14/21 Rx prednisone 2.5 mg tablet 5 mg PO QAM #180 tab 03/30/21 04/14/21 Rx acetaminophen 500 mg capsule 1,000 mg PO TID 30 Days #180 cap 04/07/21 04/14/21 Rx aspirin 81 mg tablet,delayed 81 mg PO BID 45 Days #90 tab 04/07/21 04/14/21 Rx release (Adult Aspirin Regimen) ketorolac 10 mg tablet 10 mg PO Q6 #20 tab 04/07/21 04/14/21 Rx ondansetron HCl 4 mg tablet 4 mg PO Q6 PRN #20 tab 04/07/21 04/14/21 Rx tramadol 50 mg tablet 50 - 100 mg PO Q8H PRN #40 tab 04/07/21 04/14/21 Rx sennosides 8.6 mg-docusate sodium 1 tab-cap PO HS 04/14/21 04/14/21 History 50 mg tablet (Senokot-S) Patient History Medical History (Updated 04/14/21 @ 16:57 by Renetta Paulino PA-C) Anxiety disorder Benign breast lumps Essential tremor follows with Dr. Giron [place] neuro-on propranolol GERD (gastroesophageal reflux disease) controlled, stable per pt History of iron deficiency anemia pre-op H&H 02/2021: 12.3/39 History of kidney stones punctate right renal stone, negative imaging in the urinary tracts, plan for 1 year f/u per [facility] 09/29/2020 office note Hyperlipidemia Left carpal tunnel syndrome Left hand tendonitis Left knee DJD Meniere disease Neuropathy idiopathic peripheral neuropathy per [facility] 12/2020 note-on duloxetine and gabapentin Osteoarthritis PMR (polymyalgia rheumatica) on daily prednisone Pulmonary nodule monitoring, follows with PCP Right knee DJD Spinal stenosis Vitamin D deficiency Surgical History (Updated 04/14/21 @ 12:54 by Sal Brooks MD) History of carpal tunnel release right History of cataract surgery bilat History of colonoscopy History of lithotripsy History of lumpectomy of both breasts BENIGN History of surgery BLADDER SLING History of tonsillectomy History of tooth extraction Status post right knee replacement 08/20/2019: SAB at L3, 3 attempts + PNB. No issues per anesthesia post-op progress note. Status post JEZ-BSO Family History Mother Diabetes Family history of diabetes mellitus Myocardial infarction Hypertension Stroke Heart disease Aunt Breast cancer Father Prostate cancer Brother Hearing loss Other No family history of adverse response to anesthesia No family history of bleeding disorder Denies family history of Ovarian cancer Colorectal cancer Social History Smoking Status: Former smoker packs per day: 0.5; Years Smoked: 18.0; Cigarettes Per Day: 1 PPD; Smoking End Date: 1969; Second Hand Exposure: No; Do You Dip or Chew Tobacco: No; Hx Alcohol Use: Yes Alcohol type: beer Hx Substance Use: No Preferred Language: Zambian Communication Ability: Effective Visual Impairment: No Limitations Hearing Ability: Normal 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 Beliefs That Will Affect Care: None marital status: Current Living Situation: Family Current Living Situation Comment: Granddaughter and grandson in law current occupational status: retired How many Children do You have: 1 Other Information That Helps Us Care for You: No Feels Safe at Home: Yes Safety Concerns: Feels Safe At This Time Childhood Exposure to Second-Hand Smoke: No caffeine: Yes Dental Care, Regularly: Yes Physical Activity Frequency: Other Seatbelt Use: always Sunscreen Use: Yes Assistive Devices: Walker Review of Systems Review of Systems: All systems reviewed & are unremarkable except as noted in HPI & below Physical Exam Constitutional: + obese; no acute distress and not ill appearing Neck: normal visual inspection and trachea midline Respiratory: normal respiratory effort, lungs clear to auscultation Cardiovascular: RRR, no murmur, no edema Gastrointestinal (Abdomen): Inspection/Auscultation: abdomen normal to inspection and + hypoactive bowel sounds; abdomen not distended, + abnormal bowel sounds and no abdominal surgical scar Percussion/Palpation: + abdomen tender (mild in RUQ on deep palpation, negative murphys sign) and abdomen soft; no guarding and abdomen not rigid Skin: no rashes, warm and dry Psychiatric: Orientation: alert, oriented x 3 and cooperative Results & Data ([facility]) Vital Signs (Past 12 Hours) Vital Signs Temp Pulse Pulse Resp BP BP Pulse Ox 04/14/21 16:19 04/14/21 16:18 76 16 117/53 L 93 04/14/21 15:00 37.1 C 04/14/21 12:50 89 16 97 04/14/21 12:40 90 21 93 04/14/21 12:30 87 15 97 04/14/21 12:20 87 23 98 04/14/21 12:10 89 16 92 04/14/21 12:05 90 90 04/14/21 12:00 19 91 04/14/21 11:50 89 27 H 94 04/14/21 11:40 88 19 92 04/14/21 11:30 85 17 97 04/14/21 11:20 85 18 98 04/14/21 11:10 88 20 139/57 L 94 04/14/21 11:08 104 H 16 04/14/21 10:50 91 H 13 81 L 04/14/21 10:40 20 99 04/14/21 10:30 90 16 04/14/21 10:20 85 16 97 04/14/21 10:10 85 19 98 04/14/21 10:00 85 85 20 122/92 122/92 96 04/14/21 09:50 21 96 04/14/21 09:49 90 22 95 04/14/21 09:30 88 16 93 04/14/21 09:20 88 19 96 04/14/21 09:10 89 24 96 04/14/21 09:01 37.4 C 92 H 18 120/71 93 04/14/21 09:00 85 20 129/67 96 Pulse Ox 04/14/21 16:19 93 04/14/21 16:18 04/14/21 15:00 04/14/21 12:50 04/14/21 12:40 04/14/21 12:30 04/14/21 12:20 04/14/21 12:10 04/14/21 12:05 04/14/21 12:00 04/14/21 11:50 04/14/21 11:40 04/14/21 11:30 04/14/21 11:20 04/14/21 11:10 04/14/21 11:08 04/14/21 10:50 04/14/21 10:40 04/14/21 10:30 04/14/21 10:20 04/14/21 10:10 04/14/21 10:00 04/14/21 09:50 04/14/21 09:49 04/14/21 09:30 04/14/21 09:20 04/14/21 09:10 04/14/21 09:01 04/14/21 09:00 Laboratory Results 04/14/21 04/14/21 04/14/21 Range/Units 14:44 11:52 11:14 WBC RBC Hgb Hct MCV MCH MCHC RDW Std Deviation RDW Coeff of Adela Plt Count MPV Immature Gran % (Auto) Neut % (Auto) Lymph % (Auto) [place] % (Auto) Eos % (Auto) Baso % (Auto) Neut # (Auto) Lymph # (Auto) [place] # (Auto) Eos # (Auto) Baso # (Auto) Immature Gran # (Auto) Absolute Nucleated RBC Nucleated RBC % (auto) Neutrophils % (Manual) Band Neutrophils % Lymphocytes % (Manual) Prolymphocyte % Reactive Lymphs % (Man) Monocytes % (Manual) Eosinophils % (Manual) Basophils % (Manual) Metamyelocytes % (Man) Myelocytes % (Man) Promyelocytes % (Man) Blast Cells % (Manual) Plasma Cell % (Manual) Other Cells % Nucleated RBC % Neutrophils # (Manual) Band Neutrophils # Total Absolute Neuts Lymphocytes # (Manual) Prolymphocyte # Reactive Lymphs # Total Abs Lymphocytes Monocytes # (Manual) Eosinophils # (Manual) Basophils # (Manual) Metamyelocytes # (Man) Myelocytes # (Manual) Promyelocytes # (Man) Blast Cells # (Man) Plasma Cell # (Manual) Other Cells # Nucleated RBCs # (Man) Hypersegmented Neuts Hyposegmented Neuts Hypogranular Neuts Large Granular Lymphs # Lrg Granular Lymphs Hairy Cells Smudge Cells Toxic Granulation Toxic Vacuolation Dohle Bodies Fara Rods Platelet Estimate Hypogranular Platelets Clumped Platelets Giant Platelets Platelet Satelliting RBC Morphology Polychromasia Hypochromasia Poikilocytosis Basophilic Stippling Anisocytosis Microcytosis Macrocytosis Spherocytes Pappenheimer Bodies Sickle Cells Target Cells Tear Drop Cells Ovalocytes Stomatocytes [place] Bodies Echinocytes Acanthocytes (Spur) Rouleaux RBC Agglutinates Schistocytes RBC Morph Comment Sezary Cell Sodium Potassium Chloride Carbon Dioxide Anion Gap BUN Creatinine Est Cr Clr Drug Dosing Est GFR ( Amer) Est GFR (Non-Af Amer) BUN/Creatinine Ratio Glucose Calcium Magnesium Total Bilirubin Direct Bilirubin AST ALT Alkaline Phosphatase Troponin I Total Protein Albumin Urine Color Yellow Dark Yellow Urine Appearance Clear Cloudy A (Clear) Urine pH 5.0 5.0 (4.5-7.5) Ur Specific [place] 1.028 1.033 H (1.000-1.030) Urine Protein Trace H Trace H (Negative) Urine Glucose (UA) Negative Negative (Negative) Urine Ketones Trace H Trace H (Negative) Urine Blood 1+ H Trace H (Negative) Urine Nitrite Negative Negative (Negative) Urine Bilirubin Negative Negative (Negative) Urine Urobilinogen Negative Negative (Negative) Ur Leukocyte Esterase Trace H Trace H (Negative) Urine WBC (Auto) 1-5 5-10 H (0-5) /hpf Urine RBC (Auto) 5-10 H 0-4 (0-4) /hpf U Hyaline Cast (Auto) 1-5 1-5 (0-5) /lpf U Epithel Cells (Auto) >30 H >30 H (0-5) /lpf Urine Bacteria (Auto) Negative 1+ H (Negative) Urine Yeast Not Reportable SARS-CoV-2, RNA, NAAT NEGATIVE (NEGATIVE) 04/14/21 04/14/21 04/14/21 Range/Units 10:26 10:26 09:33 WBC 6.77 RBC 2.90 L Hgb 8.4 L Hct 27.2 L MCV 93.8 MCH 29.0 MCHC 30.9 L RDW Std Deviation 53.1 H RDW Coeff of Adela 15.5 H Plt Count 245 MPV 10.2 Immature Gran % (Auto) Neut % (Auto) Lymph % (Auto) [place] % (Auto) Eos % (Auto) Baso % (Auto) Neut # (Auto) Lymph # (Auto) [place] # (Auto) Eos # (Auto) Baso # (Auto) Immature Gran # (Auto) Absolute Nucleated RBC 0.07 H Nucleated RBC % (auto) 1.0 Neutrophils % (Manual) 58.8 Band Neutrophils % Lymphocytes % (Manual) 29.8 Prolymphocyte % Reactive Lymphs % (Man) Monocytes % (Manual) 9.6 Eosinophils % (Manual) 1.8 Basophils % (Manual) Metamyelocytes % (Man) Myelocytes % (Man) Promyelocytes % (Man) Blast Cells % (Manual) Plasma Cell % (Manual) Other Cells % Nucleated RBC % Neutrophils # (Manual) 3.98 Band Neutrophils # Total Absolute Neuts 3.98 Lymphocytes # (Manual) 2.02 Prolymphocyte # Reactive Lymphs # Total Abs Lymphocytes 2.02 Monocytes # (Manual) 0.65 H Eosinophils # (Manual) 0.12 Basophils # (Manual) Metamyelocytes # (Man) Myelocytes # (Manual) Promyelocytes # (Man) Blast Cells # (Man) Plasma Cell # (Manual) Other Cells # Nucleated RBCs # (Man) Hypersegmented Neuts Hyposegmented Neuts Hypogranular Neuts Large Granular Lymphs # Lrg Granular Lymphs Hairy Cells Smudge Cells Toxic Granulation Toxic Vacuolation Dohle Bodies Fara Rods Platelet Estimate Hypogranular Platelets Clumped Platelets Giant Platelets Platelet Satelliting RBC Morphology Polychromasia Hypochromasia Poikilocytosis Basophilic Stippling Anisocytosis Microcytosis Macrocytosis Spherocytes Pappenheimer Bodies Sickle Cells Target Cells Tear Drop Cells Ovalocytes Stomatocytes [place] Bodies Echinocytes Acanthocytes (Spur) Rouleaux RBC Agglutinates Schistocytes RBC Morph Comment Sezary Cell Sodium 138 Cancelled Potassium 4.1 Cancelled Chloride 107 Cancelled Carbon Dioxide 25 Cancelled Anion Gap 6 Cancelled BUN 22 Cancelled Creatinine 0.80 Cancelled Est Cr Clr Drug Dosing 66.7 Cancelled Est GFR ( Amer) 83.0 Cancelled Est GFR (Non-Af Amer) 71.6 Cancelled BUN/Creatinine Ratio 27.5 H Cancelled Glucose 90 Cancelled Calcium 7.7 L Cancelled Magnesium 1.9 Cancelled Total Bilirubin 0.4 Cancelled Direct Bilirubin 0.1 Cancelled AST 9 L Cancelled ALT 8 Cancelled Alkaline Phosphatase 43 Cancelled Troponin I < 0.03 Cancelled Total Protein 5.3 L Cancelled Albumin 2.9 L Cancelled Urine Color Urine Appearance (Clear) Urine pH (4.5-7.5) Ur Specific [place] (1.000-1.030) Urine Protein (Negative) Urine Glucose (UA) (Negative) Urine Ketones (Negative) Urine Blood (Negative) Urine Nitrite (Negative) Urine Bilirubin (Negative) Urine Urobilinogen (Negative) Ur Leukocyte Esterase (Negative) Urine WBC (Auto) (0-5) /hpf Urine RBC (Auto) (0-4) /hpf U Hyaline Cast (Auto) (0-5) /lpf U Epithel Cells (Auto) (0-5) /lpf Urine Bacteria (Auto) (Negative) Urine Yeast SARS-CoV-2, RNA, NAAT (NEGATIVE) 04/14/21 Range/Units 09:33 WBC Cancelled RBC Cancelled Hgb Cancelled Hct Cancelled MCV Cancelled MCH Cancelled MCHC Cancelled RDW Std Deviation Cancelled RDW Coeff of Adela Cancelled Plt Count Cancelled MPV Cancelled Immature Gran % (Auto) Cancelled Neut % (Auto) Cancelled Lymph % (Auto) Cancelled [place] % (Auto) Cancelled Eos % (Auto) Cancelled Baso % (Auto) Cancelled Neut # (Auto) Cancelled Lymph # (Auto) Cancelled [place] # (Auto) Cancelled Eos # (Auto) Cancelled Baso # (Auto) Cancelled Immature Gran # (Auto) Cancelled Absolute Nucleated RBC Cancelled Nucleated RBC % (auto) Cancelled Neutrophils % (Manual) Cancelled Band Neutrophils % Cancelled Lymphocytes % (Manual) Cancelled Prolymphocyte % Cancelled Reactive Lymphs % (Man) Cancelled Monocytes % (Manual) Cancelled Eosinophils % (Manual) Cancelled Basophils % (Manual) Cancelled Metamyelocytes % (Man) Cancelled Myelocytes % (Man) Cancelled Promyelocytes % (Man) Cancelled Blast Cells % (Manual) Cancelled Plasma Cell % (Manual) Cancelled Other Cells % Cancelled Nucleated RBC % Cancelled Neutrophils # (Manual) Cancelled Band Neutrophils # Cancelled Total Absolute Neuts Cancelled Lymphocytes # (Manual) Cancelled Prolymphocyte # Cancelled Reactive Lymphs # Cancelled Total Abs Lymphocytes Cancelled Monocytes # (Manual) Cancelled Eosinophils # (Manual) Cancelled Basophils # (Manual) Cancelled Metamyelocytes # (Man) Cancelled Myelocytes # (Manual) Cancelled Promyelocytes # (Man) Cancelled Blast Cells # (Man) Cancelled Plasma Cell # (Manual) Cancelled Other Cells # Cancelled Nucleated RBCs # (Man) Cancelled Hypersegmented Neuts Cancelled Hyposegmented Neuts Cancelled Hypogranular Neuts Cancelled Large Granular Lymphs Cancelled # Lrg Granular Lymphs Cancelled Hairy Cells Cancelled Smudge Cells Cancelled Toxic Granulation Cancelled Toxic Vacuolation Cancelled Dohle Bodies Cancelled Fara Rods Cancelled Platelet Estimate Cancelled Hypogranular Platelets Cancelled Clumped Platelets Cancelled Giant Platelets Cancelled Platelet Satelliting Cancelled RBC Morphology Cancelled Polychromasia Cancelled Hypochromasia Cancelled Poikilocytosis Cancelled Basophilic Stippling Cancelled Anisocytosis Cancelled Microcytosis Cancelled Macrocytosis Cancelled Spherocytes Cancelled Pappenheimer Bodies Cancelled Sickle Cells Cancelled Target Cells Cancelled Tear Drop Cells Cancelled Ovalocytes Cancelled Stomatocytes Cancelled [place] Bodies Cancelled Echinocytes Cancelled Acanthocytes (Spur) Cancelled Rouleaux Cancelled RBC Agglutinates Cancelled Schistocytes Cancelled RBC Morph Comment Cancelled Sezary Cell Cancelled Sodium Potassium Chloride Carbon Dioxide Anion Gap BUN Creatinine Est Cr Clr Drug Dosing Est GFR ( Amer) Est GFR (Non-Af Amer) BUN/Creatinine Ratio Glucose Calcium Magnesium Total Bilirubin Direct Bilirubin AST ALT Alkaline Phosphatase Troponin I Total Protein Albumin Urine Color Urine Appearance (Clear) Urine pH (4.5-7.5) Ur Specific [place] (1.000-1.030) Urine Protein (Negative) Urine Glucose (UA) (Negative) Urine Ketones (Negative) Urine Blood (Negative) Urine Nitrite (Negative) Urine Bilirubin (Negative) Urine Urobilinogen (Negative) Ur Leukocyte Esterase (Negative) Urine WBC (Auto) (0-5) /hpf Urine RBC (Auto) (0-4) /hpf U Hyaline Cast (Auto) (0-5) /lpf U Epithel Cells (Auto) (0-5) /lpf Urine Bacteria (Auto) (Negative) Urine Yeast SARS-CoV-2, RNA, NAAT (NEGATIVE) Diagnostic Findings ABDOMEN AND PELVIS CT WITH IV CONTRAST CT DOSE: 1163.80 mGy.cm HISTORY: generalized abdominal pain, altered mental state TECHNIQUE: Multiaxial CT images of the abdomen and pelvis were performed following the use of intravenous contrast. A dose lowering technique was utilized adhering to the principles of ALARA. COMPARISON STUDY: Abdomen and pelvis CT 08/18/2020. FINDINGS: Mild dependent changes seen within the lung bases posteriorly. A 4 mm subpleural nodule within the basal left lower lobe on image 55 is new from the prior study. Therefore, this likely represents atelectasis. No pneumoperitoneum. No pneumatosis. No fractures within the visualized osseous structures. There is a tiny fat-containing umbilical hernia. Subcutaneous fat stranding within the left anterior thigh. No hepatic or splenic masses. The main portal vein is patent. Normal caliber abdominal aorta with mild calcified plaque. No retroperitoneal lymphadenopathy. The adrenal glands and pancreas unremarkable. There are are a few subcentimeter hypodensities within the kidneys which are technically too small to characterize but statistically represent cysts. No hydronephrosis. A 4 mm stone within the right kidney, unchanged. The gallbladder is mildly distended and there is mild gallbladder wall thickening with minimal adjacent inflammatory change. There may be a few punctate stones near the neck of the gallbladder. Therefore, these findings likely represent acute cholecystitis. No pelvic free fluid. Normal bladder. Prior hysterectomy. A few colonic diverticula. No evidence for acute diverticulitis. No bowel wall thickening or obstruction. Normal appendix. IMPRESSION: 1. Distended gallbladder with mild gallbladder wall thickening and adjacent inflammatory change. There may be a few punctate stones near the neck of the gallbladder. Therefore, these findings are highly suspicious for acute cholecystitis. Surgical consultation and/or nuclear medicine HIDA scan/ultrasound can be used for further evaluation. 2. Right-sided nephrolithiasis. No hydronephrosis. 3. No bowel wall thickening or obstruction. (1) Altered mental status Altered mental status type: transient alteration of awareness Qualified Code(s): R40.4 - Transient alteration of awareness
--- NOTE | 2021-04-14 17:48 | Progress Notes ---
PROGRESS NOTE AND CONSULTATION DATE OF SERVICE: 04/14/2021 SUBJECTIVE: A 76-year-old white female now postop day #3 from a left knee replacement. She was disc harged to home the same day. I did call her that evening and she was doing pretty well. She did pre tty well for the first 2 days, but woke up this morning with significant confusion. She was brought to the ER by her granddaughter. I visited her in the Emergency Room. She was having some discomfort in her abdomen and the chest, but this is all resolved. She is having some moderate knee discomfort . No other complaints currently. She is currently awake, alert and appropriate. OBJECTIVE: VITAL SIGNS: Temperature is 37.1. Vital signs are stable. PHYSICAL EXAMINATION: GENERAL: Shows a pleasant, elderly female. She is awake, alert and oriented. She certainly recogni zed me and seemed appropriate. EXTREMITIES: Examination of the left leg reveals the leg to be well aligned. There is some small am ount of bloody drainage at the inferior aspect of her dressing. She has got moderate diffuse swellin g and bruising. Her compartments are soft. She can dorsiflex and plantarflex her foot appropriately . She can do a straight leg raise with some effort. LABORATORY DATA: Hemoglobin is 8.4. Hematocrit 27.2. Electrolytes are stable. ASSESSMENT: A 76-year-old female postoperative day #3 from a left knee replacement, admitted to the hospital now with confusion. The confusion seems to be significantly improved at least by my underst anding now. Really not having too many aches or pains. Her hemoglobin is low, but not unexpected at this level after knee replacement surgery. She may be a bit dehydrated. She may have a urinary tra ct infection as well, which may have contributed to some degree of confusion. PLAN: 1. DVT prophylaxis, we would continue to recommend thigh-high TEDs, SCDs, and a baby aspirin twice a day. I know there is a concern about GI issues and we could stop her NSAID/Toradol. 2. PT/OT. She can weight bear as tolerated. Left knee protocol. 3. Pain control, seems to be doing okay with current pain regimen. Avoid narcotics to avoid confusi on issues. Use Tylenol 1000 mg 3 times a day around the clock and supplement with tramadol if necess daniel. We will hold NSAIDs for now due to the concern with GI issues. 4. Medical management as per the medicine service. 5. Disposition: We will see how her hospital stay goes. Her granddaughter seems to be taking pretty good care of her. Any orthopedic questions can be directed to me at [phone]. Job ID: [id number]
[2021-04-14] MEDS: GABAPENTIN 600 MG TAB PO SCH ×2 (18:07→21:57)
[2021-04-14 18:09] LABS: Hematocrit (blood only) 26.8 % (37-47); Hemoglobin 8.4 g/dL (12.0-16.0)
[2021-04-14] MEDS ORDERED: ASPIRIN 81 MG ECTAB PO SCH (21:00)
[2021-04-14] MEDS: DOCUSATE SODIUM/SENNA 50/8.6MG TAB PO SCH (21:05)
--- NOTE | 2021-04-14 21:31 | Electrocardiogram Report ---
Test Reason : Blood Pressure : / mmHG Vent. Rate : 091 BPM Atrial Rate : 091 BPM P-R Int : 158 ms QRS Dur : 086 ms QT Int : 334 ms P-R-T Axes : 063 058 070 degrees QTc Int : 410 ms Normal sinus rhythm Possible Left atrial enlargement Low voltage QRS Possible Anterior infarct Abnormal ECG When compared with ECG of 08-MAR-2021 09:35, Vent. rate has increased BY 32 BPM Borderline criteria for Anterior infarct are now Present Confirmed by Tony Ashley ([id number]) on 04/14/2021 9:31:04 PM Referred By: Confirmed By:Tony Ashley
[2021-04-14] MEDS: ACETAMINOPHEN 500 MG TAB PO SCH (21:56)
[2021-04-14] MEDS ORDERED: SODIUM CHLORIDE 0.9% 1000ML 500 ML IV ONE (22:13)
[2021-04-14] MEDS: MoRPHine SULFATE 2 MG/ML CARP IV PRN (23:02)
[2021-04-14 23:28] LABS: Hematocrit (blood only) 24.2 % (37-47); Hemoglobin 7.5 g/dL (12.0-16.0)
--- NOTE | 2021-04-15 00:11 | Communication Note ---
Date of Service: April 15, 2021 Contacted by nursing for patient tachycardia 150s, intermittent with drop back to 90s. EKG with NSR HR 90s. Noted to be in fairly severe pain due to left knee operation, given morphine 2mg IV x1. Also noted on labwork to have Hgb 8.4 decreased significantly from 12.0 on 04/07. Repeat H/H ordered with Hgb 7.5. On review of admission history, patient reported a melanotic stool. No Hemoccult collected as if this writing, pending. Did consent patient for blood by calling POA at patient request (granddaughter). Type/cross for 2u PRBCs ordered. Protonix and famotidine ordered. Resident Activity Tracking Resident Involvement: Resident Care Provided Care Provided: Adult Hospital Medicine
[2021-04-15] MEDS ORDERED: SODIUM CHLORIDE 0.9% 250 ML IV PRN (00:47)
[2021-04-15] MEDS: MoRPHine SULFATE 2 MG/ML CARP IV PRN (06:18)
[2021-04-15] MEDS: DICLOFENAC SOD 1% GEL 100 GM TUBE EXT SCH ×3 (06:18→21:20)
--- NOTE | 2021-04-15 07:39 | Electrocardiogram Report ---
Test Reason : Blood Pressure : / mmHG Vent. Rate : 093 BPM Atrial Rate : 093 BPM P-R Int : 152 ms QRS Dur : 088 ms QT Int : 354 ms P-R-T Axes : 052 031 047 degrees QTc Int : 440 ms Normal sinus rhythm Low voltage QRS Borderline ECG When compared with ECG of 14-APR-2021 09:27, Borderline criteria for Anterior infarct are no longer Present Borderline criteria for Anterolateral infarct are no longer Present T wave inversion no longer evident in Anterior leads Confirmed by Wilmar Gross ([id number]) on 04/15/2021 7:39:25 AM Referred By: REFERRED SELF Confirmed By:Gumaro Gross
[2021-04-15] MEDS: ACETAMINOPHEN 500 MG TAB PO SCH ×3 (08:03→20:34)
[2021-04-15] MEDS: GABAPENTIN 600 MG TAB PO SCH ×3 (08:03→20:34)
[2021-04-15] MEDS: CHOLECALCIFEROL 5,000 UNITS 125 MCG TAB PO SCH (08:04)
[2021-04-15] MEDS: PROPRANOLOL HCL 60 MG LA CAP PO SCH (08:04)
[2021-04-15] MEDS: FAMOTIDINE 20 MG in SYRINGE 3 ML IV SCH ×2 (08:04→20:45)
[2021-04-15] MEDS: ATORVASTATIN 20 MG TAB PO SCH (08:04)
[2021-04-15] MEDS: DULoxetine HCL 60 MG CAP PO SCH (08:04)
[2021-04-15] MEDS: LIDOCAINE 5% 1 PATCH TD SCH (08:05)
[2021-04-15] MEDS: PANTOprazole 40 MG in SYRINGE 0 ML IV SCH ×2 (08:05→21:20)
[2021-04-15 08:07] LABS: Hematocrit (blood only) 33.3 % (37-47); Hemoglobin 10.5 g/dL (12.0-16.0); Mean Corpuscular Hemoglobin 28.7 pg (25-34); Mean Corpuscular Hgb Conc 31.5 g/dL (32-36); Mean Platelet Volume 10.5 fL (7.4-10.4); Platelet Count 249 K/uL (130-400); RDW Standard Deviation 52.8 fL (36.4-46.3); Red Blood Count 3.66 M/uL (4.2-5.4); White Blood Count 10.36 K/uL (4.8-10.8)
[2021-04-15 08:28] LABS: BUN Creatinine Ratio 17.2 (10-20); Bilirubin Direct 0.1 mg/dl (0-0.2); Bilirubin,Total 0.5 mg/dl (0.2-1.0); Creatinine Clr Calc Pharmacy 94.3 ml/min; Est GFR (African American) 103.8 ml/min; Est GFR (Non-African American) 89.5 ml/min; Potassium 3.7 mmol/L (3.5-5.1); Total Protein 5.7 gm/dl (6.0-8.3)
[2021-04-15 08:39] LABS: Basophils # (auto) 0.02 K/uL (0-0.2); Basophils % (auto) 0.2 %; Eosinophils # (auto) 0.04 K/uL (0-0.5); Eosinophils % (auto) 0.4 %; Immature Granulocytes # (auto) 0.06 K/uL (0.00-0.02); Immature Granulocytes % (auto) 0.6 %; Lymphocytes # (auto) 2.15 K/uL (1.2-3.4); Lymphocytes % (auto) 20.8 %; Monocytes # (auto) 1.01 K/uL (0.11-0.59); Monocytes % (auto) 9.7 %; Neutrophils # (auto) 7.08 K/uL (1.4-6.5); Neutrophils % (auto) 68.3 %
[2021-04-15] MEDS ORDERED: cefTRIAXone SODIUM 2,000 MG in DEXTROSE 5% 50 ML IV SCH (09:00)
[2021-04-15] MEDS ORDERED: predniSONE 5 MG TAB PO SCH (09:00)
[2021-04-15] MEDS ORDERED: PANTOprazole 40 MG TAB PO SCH (09:00)
[2021-04-15] MEDS ORDERED: POLYETHYLENE (MIRALAX) 17 GM PACK PO PRN ×2 (09:00→15:00)
[2021-04-15] MEDS: HYDROCORTISONE SOD 25 MG in SYRINGE 0 ML IV SCH ×3 (09:15→20:46)
--- NOTE | 2021-04-15 12:04 | Surgery Progress Note ---
Date of Service April 15, 2021 Assessment & Plan (1) Abnormal CT scan, gallbladder: Plan: No clinical findings consistent with cholecystitis HIDA to r/o acute cholecystis suggested by CT scan con't leticia Admission and Anticipated Discharge Date Admission Date: April 14, 2021 Subjective Patient with no abdominal pain No fevers No nausea Review of Systems Constitutional: no fever and no chills Respiratory: no dyspnea Cardiovascular: no chest pain Gastrointestinal: no abdominal pain, no nausea, no vomiting and no problem reported Musculoskeletal: no back pain Physical Exam Constitutional: well developed and well nourished Neck: trachea midline Respiratory: normal respiratory effort, lungs clear to auscultation Cardiovascular: RRR, no murmur, no edema Gastrointestinal (Abdomen): Inspection/Auscultation: abdomen normal to inspection and normal bowel sounds; abdomen not distended Percussion/Palp ation: abdomen soft; abdomen nontender, no guarding and abdomen not rigid Musculoskeletal: Head/Neck/Chest: normocephalic and head atraumatic Skin: no rashes, warm and dry Results & Data ([facility]) Vital Signs (Past 12 Hours) Vital Signs Temp Pulse Pulse Resp BP BP Pulse Ox 04/15/21 11:19 36.6 C 75 18 99/64 L 98 04/15/21 08:00 106 H 04/15/21 07:14 37.8 C H 98 H 16 124/78 92 04/15/21 06:11 37.0 C 102 H 16 136/83 97 04/15/21 05:42 36.4 C L 94 H 16 129/75 97 04/15/21 05:30 37.0 C 91 H 16 123/75 100 04/15/21 05:09 37.1 C 90 18 136/65 99 04/15/21 04:28 38.1 C H 90 16 94/55 L 98 04/15/21 03:25 36.6 C 90 16 119/70 96 04/15/21 03:20 37.3 C 88 16 102/60 98 04/15/21 02:45 36.7 C 91 H 18 103/63 94 04/15/21 02:34 36.8 C 87 18 108/65 91 04/15/21 02:17 36.7 C 88 18 109/66 95 04/15/21 02:14 93 H Diagnostic Findings ABDOMEN AND PELVIS CT WITH IV CONTRAST CT DOSE: 1163.80 mGy.cm HISTORY: generalized abdominal pain, altered mental state TECHNIQUE: Multiaxial CT images of the abdomen and pelvis were performed following the use of intravenous contrast. A dose lowering technique was utilized adhering to the principles of ALARA. COMPARISON STUDY: Abdomen and pelvis CT 08/18/2020. FINDINGS: Mild dependent changes seen within the lung bases posteriorly. A 4 mm subpleural nodule within the basal left lower lobe on image 55 is new from the prior study. Therefore, this likely represents atelectasis. No pneumoperitoneum. No pneumatosis. No fractures within the visualized osseous structures. There is a tiny fat-containing umbilical hernia. Subcutaneous fat stranding within the left anterior thigh. No hepatic or splenic masses. The main portal vein is patent. Normal caliber abdominal aorta with mild calcified plaque. No retroperitoneal lymphadenopathy. The adrenal glands and pancreas unremarkable. There are are a few subcentimeter hypodensities within the kidneys which are technically too small to characterize but statistically represent cysts. No hydronephrosis. A 4 mm stone within the right kidney, unchanged. The gallbladder is mildly distended and there is mild gallbladder wall thickening with minimal adjacent inflammatory change. There may be a few punctate stones near the neck of the gallbladder. Therefore, these findings likely represent acute cholecystitis. No pelvic free fluid. Normal bladder. Prior hysterectomy. A few colonic diverticula. No evidence for acute diverticulitis. No bowel wall thickening or obstruction. Normal appendix. IMPRESSION: 1. Distended gallbladder with mild gallbladder wall thickening and adjacent inflammatory change. There may be a few punctate stones near the neck of the gallbladder. Therefore, these findings are highly suspicious for acute cholecystitis. Surgical consultation and/or nuclear medicine HIDA scan/ultrasound can be used for further evaluation. 2. Right-sided nephrolithiasis. No hydronephrosis. 3. No bowel wall thickening or obstruction.
--- NOTE | 2021-04-15 12:15 | Hospitalist Progress Note ---
Date of Service April 15, 2021 Assessment & Plan (1) SIRS (systemic inflammatory response syndrome): Plan: fever, low-normal BPs, etc at presentation. etiology? UTI vs acute cholecystitis vs bacteremia vs other. follow blood/urine cx's. see #2 below. empiric IV antibiotics for now. (2) Abnormal CT scan, gallbladder: Plan: CT concerning for findings that could be c/w acute cholecystitis Appreciate gen surg consultation CATARINA advised this was ordered for today, but unfortunately cannot obtain until Saturday elected to obtain RUQ u/s - this, too, is concerning for acute acalculous cholecystitis she remains without GI symptoms - but chronic steroids could be masking symptoms change rocephin to IV unasyn - will give gram neg and anaerobic coverage for the GB serial exams repeat LFTs am allow clear liquids starting tonight (3) Acute metabolic encephalopathy: Plan: 2nd to #1, ?#2 supportive care defer on meds unless she , it is distressing, she has agitation, etc (4) Melena: Plan: question of H/H s/p 2 units PRBCs with robust improvement repeat H/H this evening similar to post-transfusion serial cbc await fecal occult blood ortho placed aspirin on hold PPI IV (5) Acute blood loss anemia: Plan: Hb upon presentation 8.4 pre-op Hb before her TKR was 12 suspect most of the drop was blood loss from surgery but can't rule out #4 s/p 2 units PRBCs H/H with robust response trend the H/H fecal occult blood pending (6) Status post left knee replacement: Plan: 04/11/[address] Zelaya doing well from ortho standpoint no evidence of wound infection (7) PMR (polymyalgia rheumatica): Plan: on chronic prednisone 5mg daily will give stress dose steroids - start hydrocortisone 25mg TID (8) Oral cavity pain: Plan: chronic oral candidiasis?? trial nystatin 5cc qid (9) DVT prophylaxis: Plan: aspirin placed on hold by ortho due to concerns as above Plan: updated pt's grand-daughter by phone this evening change observation status to full admission status Admission and Anticipated Discharge Date Admission Date: April 14, 2021 Subjective patient feels less confused today although she did state she was having visual hallucinations earlier before my visit she realizes that what she is seeing isn't real but [id number] is having them denies ANY abd pain, N/V denies dysuria mild L knee pain but no worse than prior no melena today denies loss of taste/smell is vaccinated against COVID no cough/congestion no chest pain Review of Systems Review of Systems: gen - mild fatigue CV - no orthopnea pulm - no dyspnea GI - no abd pain, no diarrhea - no dysuria or frequency Physical Exam Physical Exam: gen - obese, NAD, nontoxic skin - no rash mouth - MMM neck - no JVD heart - RRR, s1 s2 lungs - CTA b/l, scant dry/fine rales bases abd - soft NT ND BS+; no HSM ext - <1+ edema left leg, none on right, pulses 2+ b/l musculo - left knee derek intact, incision c/d/i, mild swelling L knee, no pain w/ active ROM Results & Data Results & Data ([facility]) Vital Signs (Past 12 Hours) Vital Signs Temp Pulse Pulse Resp BP BP Pulse Ox 04/15/21 11:19 36.6 C 75 18 99/64 L 98 04/15/21 08:00 106 H 04/15/21 07:14 37.8 C H 98 H 16 124/78 92 04/15/21 06:11 37.0 C 102 H 16 136/83 97 04/15/21 05:42 36.4 C L 94 H 16 129/75 97 04/15/21 05:30 37.0 C 91 H 16 123/75 100 04/15/21 05:09 37.1 C 90 18 136/65 99 04/15/21 04:28 38.1 C H 90 16 94/55 L 98 04/15/21 03:25 36.6 C 90 16 119/70 96 04/15/21 03:20 37.3 C 88 16 102/60 98 04/15/21 02:45 36.7 C 91 H 18 103/63 94 04/15/21 02:34 36.8 C 87 18 108/65 91 04/15/21 02:17 36.7 C 88 18 109/66 95 04/15/21 02:14 93 H Laboratory Results Laboratory Results - last 24 hr 04/14/21 04/15/21 04/15/21 17:38 07:41 07:41 WBC 10.36 RBC 3.66 L Hgb 10.5 L D Hct 33.3 L MCV 91.0 MCH 28.7 MCHC 31.5 L RDW Std Deviation 52.8 H RDW Coeff of Adela 16.0 H Plt Count 249 MPV 10.5 H Immature Gran % (Auto) 0.6 Neut % (Auto) 68.3 Lymph % (Auto) 20.8 [place] % (Auto) 9.7 Eos % (Auto) 0.4 Baso % (Auto) 0.2 Neut # (Auto) 7.08 H Lymph # (Auto) 2.15 [place] # (Auto) 1.01 H Eos # (Auto) 0.04 Baso # (Auto) 0.02 Immature Gran # (Auto) 0.06 H Sodium 140 Potassium 3.7 Chloride 109 H Carbon Dioxide 25 Anion Gap 6 BUN 10 Creatinine 0.58 L Est Cr Clr Drug Dosing 94.3 Est GFR ( Amer) 103.8 Est GFR (Non-Af Amer) 89.5 BUN/Creatinine Ratio 17.2 Glucose 101 H Calcium 8.0 L Total Bilirubin 0.5 Direct Bilirubin 0.1 AST 33 ALT 26 Alkaline Phosphatase 126 H D Total Protein 5.7 L Albumin 3.0 L Blood Type O Negative Antibody Screen NEGATIVE Crossmatch See Detail 04/15/21 20:10 WBC RBC Hgb 10.2 L Hct 31.7 L MCV MCH MCHC RDW Std Deviation RDW Coeff of Adela Plt Count MPV Immature Gran % (Auto) Neut % (Auto) Lymph % (Auto) [place] % (Auto) Eos % (Auto) Baso % (Auto) Neut # (Auto) Lymph # (Auto) [place] # (Auto) Eos # (Auto) Baso # (Auto) Immature Gran # (Auto) Sodium Potassium Chloride Carbon Dioxide Anion Gap BUN Creatinine Est Cr Clr Drug Dosing Est GFR ( Amer) Est GFR (Non-Af Amer) BUN/Creatinine Ratio Glucose Calcium Total Bilirubin Direct Bilirubin AST ALT Alkaline Phosphatase Total Protein Albumin Blood Type Antibody Screen Crossmatch PG Care Time/CCT Total # of Minutes Spent Total Time Spent with Patient: Total time spent is greater than 50% in coordination of care (as documented) at patient's floor/unit and/or counseling patient: Coding Level of Care Code 54107 Subseq Hosp Care Lvl 3 Diagnoses SIRS (systemic inflammatory response syndrome) R65.[address] scan, gallbladder R93.2 Acute metabolic encephalopathy G93.41 Melena K92.1 Acute blood loss anemia D62 Status post left knee replacement Z96.652 PMR (polymyalgia rheumatica) M35.3 DVT prophylaxis Z29.9 Oral cavity pain K13.79
[2021-04-15] MEDS ORDERED: SODIUM CHLORIDE 0.9% 1000ML 1,000 ML IV SCH (12:30)
[2021-04-15] MEDS: NYSTATIN SUSP 500,000 U/5 ML UDC PO SCH ×3 (13:07→20:36)
--- NOTE | 2021-04-15 16:14 | Ultrasound Report ---
ULTRASOUND RIGHT UPPER QUADRANT ABDOMEN CLINICAL HISTORY: Right upper quadrant abdominal pain. COMPARISON STUDY: Abdominal CT dated 04/14/2021. TECHNIQUE: Real-time, grayscale, and color flow sonography of the right upper quadrant of the abdomen was performed. Images are reviewed in the transverse and longitudinal planes. FINDINGS: Liver: The liver is normal in size and echotexture. There is no intrahepatic biliary ductal dilatatio n. The main portal vein is patent. Gallbladder: The gallbladder is distended in the gallbladder wall is thickened and edematous measurin g up to 7 mm. No shadow gallstones are identified. Trace pericholecystic fluid is noted. A sonographi c Paiz's sign is reportedly absent. The common bile duct measures up to 0.7 cm in diameter. Pancreas: Visualized portions of the pancreatic head and body are normal in appearance. Right kidney: Survey images of the right kidney demonstrate mild cortical atrophy. Echotexture is nor mal. There is no hydronephrosis. Ascites: None. IMPRESSION: 1. The gallbladder is distended and the wall appears thickened and edematous. There is trace perichol ecystic fluid. No shadowing gallstones are identified and a sonographic Paiz's sign is reportedly a bsent. Findings are equivocal for acalculous cholecystitis which is not excluded. Surgical consultati on is advised. 2. The common bile duct measures up to 7 mm in diameter. 3. No intrahepatic biliary ductal dilatation is identified. ACT 112: Negative or not required by law. Electronically signed by: Maurilio Bishop M.D. 04/15/2021 4:12 PM
[2021-04-15 20:27] LABS: Hematocrit (blood only) 31.7 % (37-47); Hemoglobin 10.2 g/dL (12.0-16.0)
[2021-04-15] MEDS: DOCUSATE SODIUM/SENNA 50/8.6MG TAB PO SCH (20:35)
[2021-04-15] MEDS: AMPICILLIN/SULBACTAM SOD 3,000 MG in 0.9 % SODIUM CHLORIDE 100 ML IV SCH (20:47)
[2021-04-16] MEDS: AMPICILLIN/SULBACTAM SOD 3,000 MG in 0.9 % SODIUM CHLORIDE 100 ML IV SCH ×4 (02:24→20:53)
[2021-04-16] MEDS: DICLOFENAC SOD 1% GEL 100 GM TUBE EXT SCH ×3 (05:48→20:52)
[2021-04-16 06:11] LABS: Basophils # (auto) 0.01 K/uL (0-0.2); Basophils % (auto) 0.1 %; Eosinophils # (auto) 0.02 K/uL (0-0.5); Eosinophils % (auto) 0.2 %; Hematocrit (blood only) 27.7 % (37-47); Hemoglobin 8.9 g/dL (12.0-16.0); Immature Granulocytes # (auto) 0.03 K/uL (0.00-0.02); Immature Granulocytes % (auto) 0.3 %; Lymphocytes % (auto) 16.5 %; Mean Corpuscular Hemoglobin 29.3 pg (25-34); Mean Corpuscular Hgb Conc 32.1 g/dL (32-36); Mean Corpuscular Volume 91.1 fL (80-100); Mean Platelet Volume 10.3 fL (7.4-10.4); Monocytes # (auto) 0.92 K/uL (0.11-0.59); Neutrophils # (auto) 8.62 K/uL (1.4-6.5); Neutrophils % (auto) 74.9 %; Platelet Count 226 K/uL (130-400); RDW Coefficient of Variation 16.1 % (11.5-14.5); RDW Standard Deviation 53.8 fL (36.4-46.3); Red Blood Count 3.04 M/uL (4.2-5.4)
[2021-04-16 06:34] LABS: Albumin Level 2.6 gm/dl (3.4-5.0); BUN Creatinine Ratio 21.7 (10-20); Bilirubin,Total 0.4 mg/dl (0.2-1.0); Creatinine Clr Calc Pharmacy 91.1 ml/min; Est GFR (African American) 102.6 ml/min; Est GFR (Non-African American) 88.5 ml/min; Globulin 2.6 gm/dl (2.5-4.0); Potassium 3.7 mmol/L (3.5-5.1); Total Protein 5.2 gm/dl (6.0-8.3)
--- NOTE | 2021-04-16 07:17 | Surgery Progress Note ---
Date of Service April 16, 2021 Assessment & Plan (1) Abnormal CT scan, gallbladder: Plan: No fevers or pain US findings noted HIDA scan to see if there is obstruction in which case will need lap rhiannon Con't to treat with IV abx HIDA in AM Present on Admission?: Yes Admission and Anticipated Discharge Date Admission Date: April 15, 2021 Subjective Patient denies abdominal pain taking po well no nausea or vomiting Review of Systems Constitutional: no fever and no chills Eyes: no problem reported Respiratory: no cough and no dyspnea Cardiovascular: no chest pain Gastrointestinal: no abdominal pain, no nausea and no vomiting Genitourinary: no dysuria Musculoskeletal: no back pain, no neck pain and no joint pain Integumentary: no yellowing of the skin Neurologic: no localized weakness and no generalized weakness Psychiatric: no behavioral changes Hematologic / Lymphatic: no easy bleeding and no easy bruising Physical Exam Constitutional: WD/WN, vitals as above Eyes: PERRL, conjunctivae normal, anicteric sclerae ENMT: external ear and nose normal, oropharynx normal Neck: trachea midline Respiratory: normal respiratory effort, lungs clear to auscultation Cardiovascular: RRR, no murmur, no edema Gastrointestinal (Abdomen): Inspection/Auscultation: normal bowel sounds; abdomen not distended Percussion/Palpation: + abdomen tender (alittle tenderness in epigastrium) and abdomen soft; no guarding and abdomen not rigid Musculoskeletal: Head/Neck/Chest: normocephalic and head atraumatic Skin: no rashes, warm and dry Psychiatric: Orientation: alert and oriented x 3 Results & Data ([facility]) Vital Signs (Past 12 Hours) Vital Signs Temp Pulse Pulse Resp BP Pulse Ox 04/16/21 03:00 37.3 C 74 18 96/57 L 94 04/16/21 00:13 71 04/15/21 23:42 36.5 C 69 16 125/64 94 Diagnostic Findings ULTRASOUND RIGHT UPPER QUADRANT ABDOMEN CLINICAL HISTORY: Right upper quadrant abdominal pain. COMPARISON STUDY: Abdominal CT dated 04/14/2021. TECHNIQUE: Real-time, grayscale, and color flow sonography of the right upper quadrant of the abdomen was performed. Images are reviewed in the transverse and longitudinal planes. FINDINGS: Liver: The liver is normal in size and echotexture. There is no intrahepatic biliary ductal dilatation. The main portal vein is patent. Gallbladder: The gallbladder is distended in the gallbladder wall is thickened and edematous measuring up to 7 mm. No shadow gallstones are identified. Trace pericholecystic fluid is noted. A sonographic Paiz's sign is reportedly absent. The common bile duct measures up to 0.7 cm in diameter. Pancreas: Visualized portions of the pancreatic head and body are normal in appearance. Right kidney: Survey images of the right kidney demonstrate mild cortical atrophy. Echotexture is normal. There is no hydronephrosis. Ascites: None. IMPRESSION: 1. The gallbladder is distended and the wall appears thickened and edematous. There is trace pericholecystic fluid. No shadowing gallstones are identified and a sonographic Paiz's sign is reportedly absent. Findings are equivocal for acalculous cholecystitis which is not excluded. Surgical consultation is advised. 2. The common bile duct measures up to 7 mm in diameter. 3. No intrahepatic biliary ductal dilatation is identified.
[2021-04-16] MEDS: DULoxetine HCL 60 MG CAP PO SCH (08:16)
[2021-04-16] MEDS: PANTOprazole 40 MG in SYRINGE 0 ML IV SCH ×2 (08:16→20:54)
[2021-04-16] MEDS: GABAPENTIN 600 MG TAB PO SCH ×3 (08:16→20:54)
[2021-04-16] MEDS: CHOLECALCIFEROL 5,000 UNITS 125 MCG TAB PO SCH (08:16)
[2021-04-16] MEDS: PROPRANOLOL HCL 60 MG LA CAP PO SCH (08:16)
[2021-04-16] MEDS: ATORVASTATIN 20 MG TAB PO SCH (08:17)
[2021-04-16] MEDS: NYSTATIN SUSP 500,000 U/5 ML UDC PO SCH ×4 (08:17→20:54)
[2021-04-16] MEDS: LIDOCAINE 5% 1 PATCH TD SCH (08:17)
[2021-04-16] MEDS: FAMOTIDINE 20 MG in SYRINGE 3 ML IV SCH ×2 (08:24→20:54)
[2021-04-16] MEDS: ACETAMINOPHEN 500 MG TAB PO SCH ×3 (08:24→20:59)
[2021-04-16] MEDS: HYDROCORTISONE SOD 25 MG in SYRINGE 0 ML IV SCH ×3 (09:21→20:55)
--- NOTE | 2021-04-16 09:59 | Progress Notes ---
DATE OF SERVICE: 04/16/2021. SUBJECTIVE: A 76-year-old white female now postop day 5 from a left knee replacement. Medically, richard aguirre seems to be doing much better. No nausea. No further confusion. This seemed to have resolved. D enies any other complaints other than knee pain. Her knee is hurting her quite a bit and that is it. No chest pain or shortness of breath. No abdominal pain. OBJECTIVE: VITAL SIGNS: Temperature is 36.8. Vital signs are stable. EXTREMITIES: Examination of the left leg reveals the leg to be well aligned. She just has a little bit of bloody drainage at the inferior aspect of her incision site. Moderate swelling. Compartments are soft. She is neurologically intact. LABORATORY DATA: Hemoglobin 8.9. Hematocrit 27.7. Electrolytes are stable. White cell count is sl ightly elevated at 11.50. ASSESSMENT: A 76-year-old female now 5 days out from a left knee replacement, doing much better. Me dically, she seems to be much better. I really think she was just dehydrated and with hydration, her hemoglobin dropped and she is now more euvolemic and doing much better. She has got standard knee p ain, which is not unexpected. She apparently had some findings on her CT scan with a gallbladder, wh ich are a potential issue, but she is completely asymptomatic. My take on this is likely it is an in cidental finding. She is not really having any symptoms. PLAN: 1. DVT prophylaxis includes thigh-high TEDs, SCDs and we would recommend an aspirin twice a day as l sofía as it is okay from a medical standpoint. 2. PT/OT. She can weight bear as tolerated. 3. Pain control, doing okay with current pain regimen. We will have to be careful not to give too m uch narcotics to cause side effects. 4. Her hemoglobin stable up. No further blood transfusion needed at this point. 5. Surgical management. We will leave that up to the surgical team. She is asymptomatic. I think it is possible that gallbladder findings are incidental. We will leave that up to the surgery team. 6. Disposition: She is orthopedically okay for discharge at any time medically stable. Apparently, she is having a study done tomorrow for gallbladder issues. Any orthopedic questions can be directe d to me at [phone]. Job ID: [id number]
[2021-04-16] MEDS: SUCRALFATE 1 GM/10 ML UDC PO SCH ×4 (11:23→20:55)
[2021-04-16 12:10] LABS: Hematocrit (blood only) 29.9 % (37-47); Hemoglobin 9.5 g/dL (12.0-16.0)
--- NOTE | 2021-04-16 13:17 | Gastrointestinal Consultation ---
Date of Consultation April 16, 2021 Assessment & Plan (1) Acute blood loss anemia: (2) Melena: possible AVM vs. PUD or other etiology. recs: clear liquid diet today, NPO post midnight protonix 40 mg BID EGD tomorrow to further evaluate supportive care Thank you for allowing me to participate in the care of this patient History of Present Illness Attending Physician: Sal Christianson History of Present Illness 76 yo female with recent TKA for whom GI is consulted for melena and GI bleed. Hgb in ER was 8.4 from baseline of 12 pre-op. BUN normal. She has been having black stools, never had this issue before. Up to date with CRC screening, last colonoscopy in 2017 without polyps, no prior EGD. Notes some heartburn and is on medication for it. Also notes weakness. labs reviewed. Allergies Allergy/AdvReac Type Severity Reaction Status Date / Time shellfish derived Allergy Intermediate Hives Verified 04/14/21 11:11 No Known Drug Allergies Allergy Verified 04/14/21 11:11 Home Medications Medication Instructions Recorded Confirmed Type cholecalciferol (vitamin D3) 125 5,000 unit PO QAM 08/06/18 04/14/21 History mcg (5,000 unit) tablet (Vitamin D3) meclizine 12.5 mg tablet 12.5 mg PO TID PRN 08/06/18 04/14/21 History walker #1 ea 01/06/19 04/03/21 Rx gabapentin 600 mg tablet 600 mg PO TID 90 Days #270 tab 12/09/20 04/14/21 Rx atorvastatin 20 mg tablet (Lipitor) 20 mg PO QAM #90 tab 01/04/21 04/14/21 Rx omeprazole magnesium 20 mg 20 mg PO QAM #90 tab 01/04/21 04/14/21 Rx tablet,delayed release (Prilosec OTC) duloxetine 60 mg capsule,delayed 60 mg PO QAM #90 cap 03/02/21 04/14/21 Rx release propranolol 120 mg capsule,24 120 mg PO QAM #90 cap 03/15/21 04/14/21 Rx hr,extended release temazepam 30 mg capsule 30 mg PO HS #90 cap 03/28/21 04/14/21 Rx prednisone 2.5 mg tablet 5 mg PO QAM #180 tab 03/30/21 04/14/21 Rx acetaminophen 500 mg capsule 1,000 mg PO TID 30 Days #180 cap 04/07/21 04/14/21 Rx aspirin 81 mg tablet,delayed 81 mg PO BID 45 Days #90 tab 04/07/21 04/14/21 Rx release (Adult Aspirin Regimen) ketorolac 10 mg tablet 10 mg PO Q6 #20 tab 04/07/21 04/14/21 Rx ondansetron HCl 4 mg tablet 4 mg PO Q6 PRN #20 tab 04/07/21 04/14/21 Rx tramadol 50 mg tablet 50 - 100 mg PO Q8H PRN #40 tab 04/07/21 04/14/21 Rx sennosides 8.6 mg-docusate sodium 1 tab-cap PO HS 04/14/21 04/14/21 History 50 mg tablet (Senokot-S) Patient History Medical History Anxiety disorder Benign breast lumps Essential tremor follows with Dr. Giron [place] neuro-on propranolol GERD (gastroesophageal reflux disease) controlled, stable per pt History of iron deficiency anemia pre-op H&H 02/2021: 12.3/39 History of kidney stones punctate right renal stone, negative imaging in the urinary tracts, plan for 1 year f/u per [place] [facility] 09/29/2020 office note Hyperlipidemia Left carpal tunnel syndrome Left hand tendonitis Left knee DJD Meniere disease Neuropathy idiopathic peripheral neuropathy per [place] neuro 12/2020 note-on duloxetine and gabapentin Osteoarthritis PMR (polymyalgia rheumatica) on daily prednisone Pulmonary nodule monitoring, follows with PCP Right knee DJD Spinal stenosis Vitamin D deficiency Surgical History History of carpal tunnel release right History of cataract surgery bilat History of colonoscopy History of lithotripsy History of lumpectomy of both breasts BENIGN History of surgery BLADDER SLING History of tonsillectomy History of tooth extraction Status post right knee replacement 08/20/2019: SAB at L3, 3 attempts + PNB. No issues per anesthesia post-op progress note. Status post JEZ-BSO Family History Mother Diabetes Family history of diabetes mellitus Myocardial infarction Hypertension Stroke Heart disease Aunt Breast cancer Father Prostate cancer Brother Hearing loss Other No family history of adverse response to anesthesia No family history of bleeding disorder Denies family history of Ovarian cancer Colorectal cancer Social History Smoking Status: Former smoker packs per day: 0.5; Years Smoked: 18.0; Cigarettes Per Day: 1 PPD; Smoking End Date: 1969; Second Hand Exposure: No; Do You Dip or Chew Tobacco: No; Hx Alcohol Use: Yes Alcohol type: beer Hx Substance Use: No Preferred Language: Setswana Communication Ability: Effective Visual Impairment: No Limitations Hearing Ability: Normal Lamination Technician Required: No Beliefs That Will Affect Care: None marital status: Current Living Situation: Family Current Living Situation Comment: Granddaughter and grandson in law current occupational status: retired How many Children do You have: 1 Other Information That Helps Us Care for You: No Feels Safe at Home: Yes Safety Concerns: Feels Safe At This Time Childhood Exposure to Second-Hand Smoke: No caffeine: Yes Dental Care, Regularly: Yes Physical Activity Frequency: Other Seatbelt Use: always Sunscreen Use: Yes Assistive Devices: Walker Review of Systems Constitutional: no fever, no chills and no weight loss Eyes: as per Subjective / HPI Ear, Nose, Mouth, Throat: as per Subjective / HPI Respiratory: no dyspnea and no dyspnea on exertion Cardiovascular: no chest pain and no palpitations Gastrointestinal: as per Subjective / HPI Musculoskeletal: no joint pain and no swelling Integumentary: no rash and no lesions Neurologic: no numbness and no paresthesia Psychiatric: no depression and no anxiety Endocrine: no fatigue Hematologic / Lymphatic: no easy bleeding and no easy bruising Physical Exam Constitutional: WD/WN, vitals as above Eyes: EOM intact bilaterally Neck: normal visual inspection Respiratory: normal respiratory effort, lungs clear to auscultation Cardiovascular: RRR, no murmur, no edema Gastrointestinal (Abdomen): Inspection/Auscultation: abdomen normal to inspection; abdomen not distended Percussion/Palpation: abdomen soft; abdomen nontender and no hepatosplenomegaly Musculoskeletal: Extremities: no cyanosis Gait: normal gait Skin: no rashes, warm and dry Neurologic: moves all extremities Psychiatric: A+Ox3, euthymic affect Results & Data ([facility]) Vital Signs (Past 12 Hours) Vital Signs Temp Pulse Pulse Resp BP Pulse Ox 04/16/21 10:57 37.2 C 66 18 143/78 H 97 04/16/21 08:00 69 04/16/21 07:34 36.8 C 71 18 110/69 96 04/16/21 03:00 37.3 C 74 18 96/57 L 94 PG Care Time/CCT Total # of Minutes Spent Total Time Spent with Patient: Total time spent is greater than 50% in coordination of care (as documented) at patient's floor/unit and/or counseling patient: Coding Level of Care Code 99986 Initial Inpt Care Lvl 3 Diagnoses Acute blood loss anemia D62 Melena K92.1
--- NOTE | 2021-04-16 13:38 | Hospitalist Progress Note ---
Date of Service April 16, 2021 Assessment & Plan (1) SIRS (systemic inflammatory response syndrome): Plan: fever, low-normal BPs, etc at presentation. now resolved. etiology? UTI vs acute cholecystitis vs bacteremia vs other. blood cx's neg. urine cx with gardneralla - uncertain if pathogenic, but unasyn will cover; has grown this pathogen on previous urine cx - can be part of nicole of vagina RUQ u/s still concerning for possible acute rhiannon -- HIDA tomorrow am (2) Abnormal CT scan, gallbladder: Plan: CT and RUQ u/s concerning for findings that could be c/w acute cholecystitis Appreciate gen surg consultation HIDA advised, will be obtained tomorrow on 04/17/21 she remains without GI symptoms - but chronic steroids could be masking symptoms?? continue unasyn - will give gram neg and anaerobic coverage for the GB serial exams repeat LFTs am allow clear liquids today, then NPO after MN tonight (3) Acute metabolic encephalopathy: Plan: 2nd to #1, ?#2 supportive care defer on meds unless she sundowns, it is distressing, she has agitation, etc overall improved - not fully resolved - but improved (4) Melena: Plan: question of H/H s/p 2 units PRBCs with robust improvement repeat H/H's today relatively stable about 9 range serial cbc fecal occult blood did return negative late today ortho placed aspirin on hold PPI IV GI did see - and with the drop in H/H - does plan EGD tomorrow on 04/17/21; NPO after MN tonight for such (5) Acute blood loss anemia: Plan: Hb upon presentation 8.4 pre-op Hb before her TKR was 12 suspect most of the drop was blood loss from surgery but can't rule out upper GI bleeding. s/p 2 units PRBCs earlier this stay Hb has gone up/down since then, but last 2-3 Hb's are ~9 GI consult appreciated EGD in am to r/o upper GI bleeding (6) Status post left knee replacement: Plan: 04/11/[address] Zelaya doing well from ortho standpoint no evidence of wound infection (7) PMR (polymyalgia rheumatica): Plan: on chronic prednisone 5mg daily cont stress dose steroids - hydrocortisone 25mg TID perhaps start weaning tomorrow (8) Oral cavity pain: Plan: chronic oral candidiasis?? trial nystatin 5cc qid (9) DVT prophylaxis: Plan: aspirin placed on hold by ortho due to concerns as above Plan: updated pt's grand-daughter by phone this evening and yesterday as well PT, OT while here Admission and Anticipated Discharge Date Admission Date: April 15, 2021 Subjective no events overnight still with mild confusion - especially the night-time but hallucinations not as severe no abd pain no nausea no emesis no rogers BRBPR or further melena tele overnight wnl Review of Systems Review of Systems: gen - no fevers/chills cv - no chest pain pulm - no cough/congestion GI - no abd pain - no dysuria psych - knew the day of the week; could not recite months of the year backwards starting february Physical Exam Physical Exam: gen - obese, NAD, nontoxic; slight confusion noted but improved from prior visits skin - no rash mouth - MMM neck - no JVD heart - RRR, s1 s2 lungs - CTA b/l abd - soft NT ND BS+; no HSM ext - <1+ edema left leg, none on right, pulses 2+ b/l musculo - left knee derek intact, incision c/d/i, mild swelling L knee Results & Data Results & Data ([facility]) Vital Signs (Past 12 Hours) Vital Signs Temp Pulse Pulse Resp BP Pulse Ox 04/16/21 10:57 37.2 C 66 18 143/78 H 97 04/16/21 08:00 69 04/16/21 07:34 36.8 C 71 18 110/69 96 04/16/21 03:00 37.3 C 74 18 96/57 L 94 Laboratory Results Laboratory Results - last 24 hr 04/16/21 04/16/21 04/16/21 05:47 05:47 12:01 WBC 11.50 H RBC 3.04 L Hgb 8.9 L 9.5 L Hct 27.7 L 29.9 L MCV 91.1 MCH 29.3 MCHC 32.1 RDW Std Deviation 53.8 H RDW Coeff of Adela 16.1 H Plt Count 226 MPV 10.3 Immature Gran % (Auto) 0.3 Neut % (Auto) 74.9 Lymph % (Auto) 16.5 [place] % (Auto) 8.0 Eos % (Auto) 0.2 Baso % (Auto) 0.1 Neut # (Auto) 8.62 H Lymph # (Auto) 1.90 [place] # (Auto) 0.92 H Eos # (Auto) 0.02 Baso # (Auto) 0.01 Immature Gran # (Auto) 0.03 H Sodium 143 Potassium 3.7 Chloride 109 H Carbon Dioxide 27 Anion Gap 7 BUN 13 Creatinine 0.60 Est Cr Clr Drug Dosing 91.1 Est GFR ( Amer) 102.6 Est GFR (Non-Af Amer) 88.5 BUN/Creatinine Ratio 21.7 H Glucose 90 Calcium 8.0 L Total Bilirubin 0.4 AST 12 L ALT 17 Alkaline Phosphatase 99 Total Protein 5.2 L Albumin 2.6 L Globulin 2.6 Albumin/Globulin Ratio 1.0 Stool Occult Bld Scrn 04/16/21 04/17/21 17:49 03:00 WBC RBC Hgb 9.2 L Hct 28.8 L MCV MCH MCHC RDW Std Deviation RDW Coeff of Adela Plt Count MPV Immature Gran % (Auto) Neut % (Auto) Lymph % (Auto) [place] % (Auto) Eos % (Auto) Baso % (Auto) Neut # (Auto) Lymph # (Auto) [place] # (Auto) Eos # (Auto) Baso # (Auto) Immature Gran # (Auto) Sodium Potassium Chloride Carbon Dioxide Anion Gap BUN Creatinine Est Cr Clr Drug Dosing Est GFR ( Amer) Est GFR (Non-Af Amer) BUN/Creatinine Ratio Glucose Calcium Total Bilirubin AST ALT Alkaline Phosphatase Total Protein Albumin Globulin Albumin/Globulin Ratio Stool Occult Bld Scrn Negative PG Care Time/CCT Total # of Minutes Spent Total Time Spent with Patient: Total time spent is greater than 50% in coordination of care (as documented) at patient's floor/unit and/or counseling patient: Coding Level of Care Code 18490 Subseq Hosp Care Lvl 3 Diagnoses SIRS (systemic inflammatory response syndrome) R65.[address] scan, gallbladder R93.2 Acute metabolic encephalopathy G93.41 Melena K92.1 Acute blood loss anemia D62 Status post left knee replacement Z96.652 PMR (polymyalgia rheumatica) M35.3 Oral cavity pain K13.79 DVT prophylaxis Z29.9
[2021-04-16 17:58] LABS: Hematocrit (blood only) 28.8 % (37-47); Hemoglobin 9.2 g/dL (12.0-16.0)
[2021-04-16] MEDS: DOCUSATE SODIUM/SENNA 50/8.6MG TAB PO SCH (20:59)
[2021-04-16] MEDS: MELATONIN 3 MG TAB PO PRN (20:59)
[2021-04-17] MEDS: AMPICILLIN/SULBACTAM SOD 3,000 MG in 0.9 % SODIUM CHLORIDE 100 ML IV SCH ×4 (03:04→21:34)
[2021-04-17 06:03] LABS: Hematocrit (blood only) 26.8 % (37-47); Hemoglobin 8.6 g/dL (12.0-16.0); Mean Corpuscular Hemoglobin 29.3 pg (25-34); Mean Corpuscular Hgb Conc 32.1 g/dL (32-36); Mean Corpuscular Volume 91.2 fL (80-100); Mean Platelet Volume 10.6 fL (7.4-10.4); Platelet Count 253 K/uL (130-400); RDW Coefficient of Variation 15.9 % (11.5-14.5); Red Blood Count 2.94 M/uL (4.2-5.4); White Blood Count 10.21 K/uL (4.8-10.8)
[2021-04-17 06:16] LABS: Albumin Level 2.6 gm/dl (3.4-5.0); BUN Creatinine Ratio 24.6 (10-20); Bilirubin Direct 0.2 mg/dl (0-0.2); Bilirubin,Total 0.5 mg/dl (0.2-1.0); Calcium 7.9 mg/dl (8.5-10.1); Creatinine Clr Calc Pharmacy 89.6 ml/min; Est GFR (African American) 102.1 ml/min; Est GFR (Non-African American) 88.1 ml/min; Potassium 3.5 mmol/L (3.5-5.1); Total Protein 5.1 gm/dl (6.0-8.3)
[2021-04-17] MEDS: DICLOFENAC SOD 1% GEL 100 GM TUBE EXT SCH ×3 (06:25→21:37)
[2021-04-17] MEDS: ATORVASTATIN 20 MG TAB PO SCH (08:30)
[2021-04-17] MEDS: CHOLECALCIFEROL 5,000 UNITS 125 MCG TAB PO SCH (08:30)
[2021-04-17] MEDS: GABAPENTIN 600 MG TAB PO SCH ×3 (08:31→21:35)
[2021-04-17] MEDS: DULoxetine HCL 60 MG CAP PO SCH (08:31)
[2021-04-17] MEDS: HYDROCORTISONE SOD 25 MG in SYRINGE 0 ML IV SCH ×3 (08:31→21:36)
[2021-04-17] MEDS: FAMOTIDINE 20 MG in SYRINGE 3 ML IV SCH ×2 (08:31→21:35)
[2021-04-17] MEDS: LIDOCAINE 5% 1 PATCH TD SCH ×2 (08:31→08:47)
[2021-04-17] MEDS: SUCRALFATE 1 GM/10 ML UDC PO SCH ×4 (08:32→21:35)
[2021-04-17] MEDS: PANTOprazole 40 MG in SYRINGE 0 ML IV SCH ×2 (08:32→21:36)
[2021-04-17] MEDS: NYSTATIN SUSP 500,000 U/5 ML UDC PO SCH ×4 (08:32→21:37)
[2021-04-17] MEDS: ACETAMINOPHEN 500 MG TAB PO SCH ×3 (08:45→21:34)
[2021-04-17] MEDS: MoRPHine SULFATE 2 MG/ML CARP IV PRN (11:01)
--- NOTE | 2021-04-17 11:15 | History & Physical Bridge Note ---
Date of Service April 17, 2021 History & Physical Bridge Note I have reviewed the History & Physical and in the interval since the performance of the History & Physical I have noted the following changes of clinical significance: no changes noted. H/H is 8.6/26.8. Patient is on Protonix 40 mg IV BID. Keep NPO and proceed with EGD today.
--- NOTE | 2021-04-17 11:23 | Anesthesiology Consultation ---
Date of Service April 17, 2021 Assessment & Plan (1) Encounter for pre-operative examination: Chart Review Chart Review: Acceptable Risk for Surgery and Patient NOT seen in Pre Admission Testing Consults Requested none History Surgery Operation Date: 04/17/21 16:30 Proposed Procedures p Esophagogastroduodenoscopy Dr. Terry - Andrae Terry MD Height/Weight Height: 5 ft 5 in Weight: 95.4 kg Allergies Allergy/AdvReac Type Severity Reaction Status Date / Time shellfish derived Allergy Intermediate Hives Verified 04/14/21 11:11 No Known Drug Allergies Allergy Verified 04/14/21 11:11 Medications Home Medications Medication Instructions Recorded Confirmed Last Taken cholecalciferol (vitamin D3) 125 5,000 unit PO QAM 08/06/18 04/14/21 04/13/21 mcg (5,000 unit) tablet (Vitamin D3) meclizine 12.5 mg tablet 12.5 mg PO TID PRN 08/06/18 04/14/21 04/10/21 19:00 walker #1 ea 01/06/19 04/03/21 Unknown gabapentin 600 mg tablet 600 mg PO TID 90 Days #270 tab 12/09/20 04/14/21 04/13/21 atorvastatin 20 mg tablet (Lipitor) 20 mg PO QAM #90 tab 01/04/21 04/14/21 04/13/21 omeprazole magnesium 20 mg 20 mg PO QAM #90 tab 01/04/21 04/14/21 04/13/21 tablet,delayed release (Prilosec OTC) duloxetine 60 mg capsule,delayed 60 mg PO QAM #90 cap 03/02/21 04/14/21 04/13/21 release propranolol 120 mg capsule,24 120 mg PO QAM #90 cap 03/15/21 04/14/21 04/13/21 hr,extended release temazepam 30 mg capsule 30 mg PO HS #90 cap 03/28/21 04/14/21 04/13/21 prednisone 2.5 mg tablet 5 mg PO QAM #180 tab 03/30/21 04/14/21 04/13/21 acetaminophen 500 mg capsule 1,000 mg PO TID 30 Days #180 cap 04/07/21 04/14/21 04/13/21 aspirin 81 mg tablet,delayed 81 mg PO BID 45 Days #90 tab 04/07/21 04/14/21 04/13/21 release (Adult Aspirin Regimen) ketorolac 10 mg tablet 10 mg PO Q6 #20 tab 04/07/21 04/14/21 04/13/21 21:30 ondansetron HCl 4 mg tablet 4 mg PO Q6 PRN #20 tab 04/07/21 04/14/21 Unknown tramadol 50 mg tablet 50 - 100 mg PO Q8H PRN #40 tab 04/07/21 04/14/21 04/14/21 05:30 50 mg sennosides 8.6 mg-docusate sodium 1 tab-cap PO HS 04/14/21 04/14/21 04/13/21 50 mg tablet (Senokot-S) Active Medications Generic Name Dose Route Start Last Admin Trade Name Freq PRN Reason Stop Dose Admin Acetaminophen 1,000 mg 04/14/21 21:00 04/17/21 08:45 Acetaminophen 500 Mg Tab PO 05/14/21 20:59 1,000 mg TID GALEN Administration Aspirin 81 mg 04/14/21 21:00 04/14/21 21:57 Aspirin 81 Mg Ectab PO 05/14/21 20:59 81 mg BID GALEN Administration Atorvastatin Calcium 20 mg 04/15/21 09:00 04/17/21 08:30 Atorvastatin 20 Mg Tab PO 05/15/21 08:59 20 mg QAM GALEN Administration Diclofenac Sodium 4 gm 04/15/21 06:00 04/17/21 06:25 Diclofenac Sod 1% Gel 100 Gm Tube EXT 05/15/21 05:59 4 gm Q8H GALEN Administration Duloxetine HCl 60 mg 04/15/21 09:00 04/17/21 08:31 Duloxetine Hcl 60 Mg Cap PO 05/15/21 08:59 60 mg QAM GALEN Administration Gabapentin 600 mg 04/14/21 16:30 04/17/21 08:31 Gabapentin 600 Mg Tab PO 05/14/21 16:29 600 mg TID GALEN Administration Famotidine 20 mg/ Syringe 5 mls @ 2.5 mls/min 04/15/21 09:00 04/17/21 08:31 IV 05/15/21 08:59 2.5 mls/min BID GALEN Administration Pantoprazole Sodium 40 mg/ 10 mls @ 5 mls/min 04/15/21 09:00 04/17/21 08:32 Syringe IV 05/15/21 08:59 5 mls/min BID GALEN Administration Hydrocortisone Sodium 0.5 mls @ 4 mls/min 04/15/21 09:00 04/17/21 08:31 Succinate 25 mg/ Syringe IV 05/15/21 08:59 4 mls/min TID GALEN Administration Ampicillin Sodium/Sulbactam 108 mls @ 200 mls/hr 04/15/21 20:30 04/17/21 09:11 Sodium 3,000 mg/ Sodium IV 04/25/21 20:29 Infused Chloride Q6H GALEN Infusion Protocol Lidocaine 1 patch 04/15/21 09:00 04/17/21 08:47 Lidocaine 5% 1 Patch TD 05/15/21 08:59 Not Given QAM GALEN Melatonin 3 mg 04/14/21 22:54 04/16/21 20:59 Melatonin 3 Mg Tab PO 05/14/21 22:53 3 mg HS PRN Administration Sleep Miscellaneous 1 ea 04/15/21 21:00 04/16/21 20:52 Remove Lidoderm Patch N/A 05/15/21 20:59 1 ea DAILY@2100 GALEN Administration Morphine Sulfate 2 mg 04/14/21 22:30 04/17/21 11:01 Morphine Sulfate 2 Mg/Ml Carp IV 04/28/21 22:29 2 mg Q6H PRN Administration Pain Nystatin 5 ml 04/15/21 13:00 04/17/21 08:32 Nystatin Susp 500,000 U/5 Ml Udc PO 04/25/21 12:59 5 ml QID GALEN Administration Prednisone 5 mg 04/15/21 09:00 04/15/21 08:04 Prednisone 5 Mg Tab PO 05/15/21 08:59 5 mg QAM GALEN Administration Propranolol HCl 120 mg 04/15/21 09:00 04/16/21 08:16 Propranolol Hcl 60 Mg La Cap PO 05/15/21 08:59 120 mg QAM GALEN Administration Senna/Docusate Sodium 1 tab 04/14/21 21:00 04/16/21 20:59 Docusate Sodium/Senna 50/8.6mg Tab PO 05/14/21 20:59 1 tab HS GALEN Administration Sucralfate 1 gm 04/16/21 09:00 04/17/21 08:32 Sucralfate 1 Gm/10 Ml Udc PO 05/16/21 08:59 1 gm QID GALEN Administration Vitamin D 5,000 units 04/15/21 09:00 04/17/21 08:30 Cholecalciferol 5,000 Units 125 Mcg Tab PO 05/15/21 08:59 5,000 units QAM GALEN Administration Past Medical History Medical History Anxiety disorder Benign breast lumps Essential tremor follows with Dr. Mack [place] neuro-on propranolol GERD (gastroesophageal reflux disease) controlled, stable per pt History of iron deficiency anemia pre-op H&H 02/2021: 12.3/39 History of kidney stones punctate right renal stone, negative imaging in the urinary tracts, plan for 1 year f/u per [place] [facility] 09/29/2020 office note Hyperlipidemia Left carpal tunnel syndrome Left hand tendonitis Left knee DJD Meniere disease Neuropathy idiopathic peripheral neuropathy per [place] neuro 12/2020 note-on duloxetine and gabapentin Osteoarthritis PMR (polymyalgia rheumatica) on daily prednisone Pulmonary nodule monitoring, follows with PCP Right knee DJD Spinal stenosis Vitamin D deficiency Exercise / Class Metabolic Activity II 4-5 Yardwork/Stairs/Walk up hill Past Family History Family History Mother Diabetes Family history of diabetes mellitus Myocardial infarction Hypertension Stroke Heart disease Aunt Breast cancer Father Prostate cancer Brother Hearing loss Other No family history of adverse response to anesthesia No family history of bleeding disorder Denies family history of Ovarian cancer Colorectal cancer Past Surgical History Surgical History History of carpal tunnel release right History of cataract surgery bilat History of colonoscopy History of lithotripsy History of lumpectomy of both breasts BENIGN History of surgery BLADDER SLING History of tonsillectomy History of tooth extraction Status post right knee replacement 08/20/2019: SAB at L3, 3 attempts + PNB. No issues per anesthesia post-op progress note. Status post JEZ-BSO Past Anesthesia History No Hx of Anesthesia Complications and No Family Hx of Anesthesia Complications History of PONV No Hx of PONV and No Hx of Motion Sickness Social History Smoking Status: Former smoker tobacco type: cigarettes Smoking cigarettes per day: 1 PPD Do You Dip or Chew Tobacco: No Smoking End Date: 1969 Hx Alcohol Use: Yes Alcohol type: beer alcohol intake frequency: holidays/special occasions only Hx Substance Use: No substance use type: does not use Physical Exam Vital Signs Last Vital Signs Temp 97.7 F 04/17/21 07:33 Pulse 74 04/17/21 07:33 Resp 18 04/17/21 07:33 BP 153/71 H 04/17/21 07:33 Pulse Ox 98 04/17/21 07:33 Testing Laboratory Results 04/17/21 05:20 04/17/21 05:20 Urine Color Yellow 04/14/21 14:44 Urine Appearance Clear (Clear) 04/14/21 14:44 Urine pH 5.0 (4.5-7.5) 04/14/21 14:44 Ur Specific [place] 1.028 (1.000-1.030) 04/14/21 14:44 Urine Protein Trace (Negative) H 04/14/21 14:44 Urine Glucose (UA) Negative (Negative) 04/14/21 14:44 Urine Ketones Trace (Negative) H 04/14/21 14:44 Urine Nitrite Negative (Negative) 04/14/21 14:44 Ur Leukocyte Esterase Trace (Negative) H 04/14/21 14:44 Urine WBC (Auto) 1-5 /hpf (0-5) 04/14/21 14:44 Urine RBC (Auto) 5-10 /hpf (0-4) H 04/14/21 14:44 U Hyaline Cast (Auto) 1-5 /lpf (0-5) 04/14/21 14:44 U Epithel Cells (Auto) >30 /lpf (0-5) H 04/14/21 14:44 Urine Bacteria (Auto) Negative (Negative) 04/14/21 14:44 Blood Type O Negative 04/14/21 17:38 Antibody Screen NEGATIVE 04/14/21 17:38 04/14/21 15:08 Aerobic Blood Culture - Preliminary Blood No growth in Aerobic bottle after 48 hours. Anaerobic Blood Culture - Preliminary No growth in Anaerobic bottle after 48 hours. 04/14/21 15:11 Aerobic Blood Culture - Preliminary Blood No growth in Aerobic bottle after 48 hours. Anaerobic Blood Culture - Preliminary No growth in Anaerobic bottle after 48 hours. 04/14/21 11:14 Urine Culture - Final Urine,Clean Catch Gardnerella-like bacilli Electrocardiogram Date: 04/14/21 Findings: + NSR @
--- NOTE | 2021-04-17 11:26 | Progress Notes ---
DATE OF SERVICE: 04/17/2021 SUBJECTIVE: A 76-year-old white female postop day 6 from a left total knee replacement. She has bee n readmitted for cholecystitis as well as dehydration and urinary tract infection. She is doing reas onably well, complaining mostly just of isolated knee pain today. Denies any abdominal pain. No deandre st pain or shortness of breath. Not feeling dizzy or lightheaded. OBJECTIVE: VITAL SIGNS: Temperature is 36.5. Vital signs are stable. PHYSICAL EXAMINATION: GENERAL: Shows a pleasant elderly female. She is sitting up in bed, looks pretty comfortable this m orning. EXTREMITIES: Examination of the left leg reveals the leg to be well aligned. Just a little bit of b loody drainage at the inferior aspect of her incision site. Swelling is stable and unchanged. She c an dorsiflex and plantarflex her foot appropriately. She can do a good straight leg raise with some effort. LABORATORY DATA: Hemoglobin is 8.6. Hematocrit 26.8. Electrolytes are stable. ASSESSMENT: A 76-year-old female postoperative day 6 from a left total knee replacement. Orthopedic ally doing reasonably well. She is having some knee pain, but nothing out of the ordinary. She has been admitted and managed for some cholecystitis and treatment is pending. PLAN: 1. DVT prophylaxis includes thigh-high TEDs, SCDs, and a baby aspirin twice a day. 2. PT/OT. She can weight bear as tolerated. 3. Pain control, doing okay painwise. It has been a little difficult with these GI concerns. 4. Medical management as per the medicine service. 5. Gallbladder issues. We got up to the general surgeons and the pick pulling machine operator. She is really not having any abdominal symptoms or pain. 6. Disposition: She is orthopedically okay for discharge anytime medically stable. I need to see h er back in about 2 weeks from her surgery date, which is about a week from now. Any orthopedic quest ions can be directed to me at [phone]. ADDENDUM: Her stool this morning for occult blood was negative. Job ID: [id number]
--- NOTE | 2021-04-17 11:49 | Nuclear Medicine Report ---
NUCLEAR MEDICINE HEPATOBILIARY SCAN CLINICAL HISTORY: Right upper quadrant abdominal pain. COMPARISON: CT of the abdomen and pelvis April 14, 2021. Right upper quadrant ultrasound March 262021. TECHNIQUE: 5.8 mCi of technetium 99m Choletec IV was injected at 9:50 AM on April 17, 2021. Immed iately following injection, imaging of the abdomen was carried out for 60 minutes in the anterior pro jection. At 60 minutes, radiotracer was not identified within the gallbladder and therefore 2 mg of m orphine was administered IV as per protocol. Imaging was carried out for an additional 45 minutes. FINDINGS: Hepatic uptake of radiotracer is prompt and homogeneous. Activity is identified within the common bile duct and small bowel at 10 minutes. No gallbladder activity is noted at 60 minutes. Note is made of mild increased radiotracer uptake within the right hepatic lobe, within the gallbladder f arnaldo. This is suggestive of a "rim sign". Following morphine administration, radiotracer was identifi ed within the gallbladder. Therefore, there is no evidence for complete cystic duct obstruction. IMPRESSION: Abnormal hepatobiliary scan. Gallbladder activity not visualized at 60 minutes but prese nt following morphine administration. Therefore, no evidence for complete cystic duct obstruction. Th is would suggest chronic cholecystitis however possible "rim sign" which raises the possibility of ac aniy acalculus cholecystitis. ACT 112: Negative or not required by law. Electronically signed by: Yobany Jimenez M.D. 04/17/2021 11:48 AM
[2021-04-17] MEDS: PROPRANOLOL HCL 60 MG LA CAP PO SCH (11:50)
--- NOTE | 2021-04-17 13:38 | Surgery Progress Note ---
Date of Service April 17, 2021 Assessment & Plan (1) Abnormal CT scan, gallbladder: (2) Chronic cholecystitis: Plan: HIDA scan showing chronic cholecystitis possible acute acalculous cholecystitis however cystic duct not completed obstructed. No fevers, no leukocytosis, no abdominal pain but tender in RUQ on deep palpation, n/v. Going for EGD today Plan: Given patients recent orthopedic surgery, UTI, possible upper GI bleed would prefer to treat this chronic/acute cholecystitis with antibiotics instead of cholecystectomy at this time. Keep NPO for EGD If diet advanced after EGD , recommend diet be advanced to low fat diet Continue IV abx will continue to follow Dr. Fermin has seen and examined pt, agrees with above. Admission and Anticipated Discharge Date Admission Date: April 15, 2021 Subjective feeling good no abdominal pain, nausea, vomiting +hungry Physical Exam Constitutional: WD/WN, vitals as above no acute distress and not ill appearing Neck: normal visual inspection and trachea midline Respiratory: normal respiratory effort; no respiratory distress Gastrointestinal (Abdomen): Inspection/Auscultation: abdomen normal to inspection; abdomen not distended Percussion/Palpation: + abdomen tender (RUQ on deep palpation) and abdomen soft; no guarding and abdomen not rigid Skin: no rashes, warm and dry no jaundice Psychiatric: A+Ox3, euthymic affect Results & Data ([facility]) Vital Signs (Past 12 Hours) Vital Signs Temp Pulse Pulse Pulse Resp BP BP 04/17/21 13:06 36.5 C 64 16 151/73 H 04/17/21 11:52 36.4 C L 74 18 149/82 H 04/17/21 07:33 36.5 C 74 18 153/71 H 04/17/21 06:12 70 04/17/21 03:30 36.5 C 67 18 118/76 04/17/21 02:00 66 Pulse Ox 04/17/21 13:06 96 04/17/21 11:52 94 04/17/21 07:33 98 04/17/21 06:12 04/17/21 03:30 96 04/17/21 02:00 Laboratory Results 04/17/21 04/17/21 04/17/21 Range/Units 05:20 05:20 03:00 WBC 10.21 (4.8-10.8) K/uL RBC 2.94 L (4.2-5.4) M/uL Hgb 8.6 L (12.0-16.0) g/dL Hct 26.8 L (37-47) % MCV 91.2 (80-100) fL MCH 29.3 (25-34) pg MCHC 32.1 (32-36) g/dL RDW Std Deviation 53.0 H (36.4-46.3) fL RDW Coeff of Adela 15.9 H (11.5-14.5) % Plt Count 253 (130-400) K/uL MPV 10.6 H (7.4-10.4) fL Sodium 144 (136-145) mmol/L Potassium 3.5 (3.5-5.1) mmol/L Chloride 110 H (98-107) mmol/L Carbon Dioxide 27 (21-32) mmol/L Anion Gap 7 (3-11) BUN 15 (6-23) mg/dl Creatinine 0.61 (0.6-1.2) mg/dl Est Cr Clr Drug Dosing 89.6 ml/min Est GFR ( Amer) 102.1 ml/min Est GFR (Non-Af Amer) 88.1 ml/min BUN/Creatinine Ratio 24.6 H (10-20) Glucose 96 (70-99(Fasting)) mg/dl Calcium 7.9 L (8.5-10.1) mg/dl Total Bilirubin 0.5 (0.2-1.0) mg/dl Direct Bilirubin 0.2 (0-0.2) mg/dl AST 10 L (13-39) U/L ALT 15 (7-52) U/L Alkaline Phosphatase 87 (34-104) U/L Total Protein 5.1 L (6.0-8.3) gm/dl Albumin 2.6 L (3.4-5.0) gm/dl Stool Occult Bld Scrn Negative (Negative) 04/16/21 Range/Units 17:49 WBC (4.8-10.8) K/uL RBC (4.2-5.4) M/uL Hgb 9.2 L (12.0-16.0) g/dL Hct 28.8 L (37-47) % MCV (80-100) fL MCH (25-34) pg MCHC (32-36) g/dL RDW Std Deviation (36.4-46.3) fL RDW Coeff of Adela (11.5-14.5) % Plt Count (130-400) K/uL MPV (7.4-10.4) fL Sodium (136-145) mmol/L Potassium (3.5-5.1) mmol/L Chloride (98-107) mmol/L Carbon Dioxide (21-32) mmol/L Anion Gap (3-11) BUN (6-23) mg/dl Creatinine (0.6-1.2) mg/dl Est Cr Clr Drug Dosing ml/min Est GFR ( Amer) ml/min Est GFR (Non-Af Amer) ml/min BUN/Creatinine Ratio (10-20) Glucose (70-99(Fasting)) mg/dl Calcium (8.5-10.1) mg/dl Total Bilirubin (0.2-1.0) mg/dl Direct Bilirubin (0-0.2) mg/dl AST (13-39) U/L ALT (7-52) U/L Alkaline Phosphatase (34-104) U/L Total Protein (6.0-8.3) gm/dl Albumin (3.4-5.0) gm/dl Stool Occult Bld Scrn (Negative) Diagnostic Findings NUCLEAR MEDICINE HEPATOBILIARY SCAN CLINICAL HISTORY: Right upper quadrant abdominal pain. COMPARISON: CT of the abdomen and pelvis April 14, 2021. Right upper quadrant ultrasound April 15, 2021. TECHNIQUE: 5.8 mCi of technetium 99m Choletec IV was injected at 9:50 AM on April 17, 2021. Immediately following injection, imaging of the abdomen was carried out for 60 minutes in the anterior projection. At 60 minutes, radiotracer was not identified within the gallbladder and therefore 2 mg of mor phine was administered IV as per protocol. Imaging was carried out for an additional 45 minutes. FINDINGS: Hepatic uptake of radiotracer is prompt and homogeneous. Activity is identified within the common bile duct and small bowel at 10 minutes. No gallbladder activity is noted at 60 minutes. Note is made of mild increased radiotracer uptake within the right hepatic lobe, within the gallbladder fossa. This is suggestive of a "rim sign". Following morphine administration, radiotracer was identified within the gallbladder. Therefore, there is no evidence for complete cystic duct obstruction. IMPRESSION: Abnormal hepatobiliary scan. Gallbladder activity not visualized at 60 minutes but present following morphine administration. Therefore, no evidence for complete cystic duct obstruction. This would suggest chronic cholecystitis however possible "rim sign" which raises the possibility of acute acalculus cholecystitis.
--- NOTE | 2021-04-17 14:09 | GI REPORT ---
Patient Name: Emi Alexander Procedure Date: 04/17/2021 1:14 PM Date of : 1945 Admit Type: Inpatient Age: 76 Gender: Female Attending MD: Andrae Terry MD Procedure: Upper GI endoscopy Providers: Andrae Terry MD Referring MD: Sal Christianson Indications: Melena Medicines: Monitored Anesthesia Care Complications: No immediate complications. Estimated blood loss: None. Estimated Blood Loss: Estimated blood loss: none. Procedure: Pre-Anesthesia Assessment: - Prior Anticoagulants: The patient has taken no previous anticoagulant or antiplatelet agents. - ASA Grade Assessment: II - A patient with mild systemic disease. After obtaining informed consent, the endoscope was passed under direct vision. Throughout the procedure, the patient's blood pressure, pulse, and oxygen saturations were monitored continuously. The Endoscope was introduced through the mouth, and advanced to the second part of duodenum. The upper GI endoscopy was accomplished without difficulty. The patient tolerated the procedure well. Findings: The examined esophagus was normal. One non-bleeding cratered gastric ulcer with no stigmata of bleeding was found in the gastric antrum. Biopsies were taken with a cold forceps for Helicobacter pylori testing. Estimated blood loss: none. Diffuse mild inflammation characterized by erosions and erythema was found in the stomach. The duodenal bulb and second portion of the duodenum were normal. Impression: - Normal esophagus. - Non-bleeding gastric ulcer with no stigmata of bleeding. Biopsied. - Gastritis. - Normal duodenal bulb and second portion of the duodenum. Recommendation: - Return patient to [facility] for ongoing care. - Advance diet as tolerated today. - Await pathology results. -protonix 40 mg daily for 3 months Andrae Terry MD 04/17/2021 2:08:44 PM This report has been signed electronically. Note Initiated On: 04/17/2021 1:14 PM Number of Addenda: 0 I attest to the content of the Intraoperative Record and orders documented therein, exceptions below {[id number]}
[2021-04-17] MEDS ORDERED: PROPOFOL IV EMULSION 10 MG/ML 20 ML VIAL IV ONE (14:12)
[2021-04-17] MEDS ORDERED: LIDOCAINE 2% 2 ML VIAL/AMP(20MG/ML) INFIL ONE (14:12)
--- NOTE | 2021-04-17 14:49 | Anesthesiology Progress Note ---
Date of Service April 17, 2021 Anesthesia Post Procedure Vital Signs Vital Signs: Temp Pulse Pulse Pulse Resp BP BP 04/17/21 14:35 69 18 134/82 04/17/21 14:21 69 18 142/76 H 04/17/21 14:11 97.7 F 74 16 107/58 L 04/17/21 13:06 97.7 F 64 16 151/73 H 04/17/21 11:52 97.5 F L 74 18 149/82 H 04/17/21 07:33 97.7 F 74 18 153/71 H 04/17/21 06:12 70 04/17/21 03:30 97.7 F 67 18 118/76 04/17/21 02:00 66 04/16/21 23:05 97.3 F L 65 18 117/68 04/16/21 19:58 98.4 F 68 18 111/62 04/16/21 16:00 62 04/16/21 15:15 97.7 F 60 18 110/70 Pulse Ox 04/17/21 14:35 96 04/17/21 14:21 97 04/17/21 14:11 92 04/17/21 13:06 96 04/17/21 11:52 94 04/17/21 07:33 98 04/17/21 06:12 04/17/21 03:30 96 04/17/21 02:00 04/16/21 23:05 93 04/16/21 19:58 96 04/16/21 16:00 04/16/21 15:15 97 Pain Intensity Left Knee: Pain Intensity: 6 Transfer of Care Handoff Completed per policy Notes Mental Status: alert / awake / arousable and participated in evaluation Patient Amnestic to Procedure: Yes Nausea / Vomiting: adequately controlled Pain: adequately controlled Airway Patency, RR, SpO2: stable & adequate BP & HR: stable & adequate Hydration State: stable & adequate Anesthetic Complications: no major complications apparent and Pt Satisfied with anesthetic care
--- NOTE | 2021-04-17 20:55 | Hospitalist Progress Note ---
Date of Service April 17, 2021 Assessment & Plan (1) SIRS (systemic inflammatory response syndrome): Plan: suspect was 2nd to biliary tract disease. was indeed febrile and confused at time of admission with mild leukocytosis. SIRS is resolved s/p IV abx for possible acute/chronic cholecystitis (as suggested by CT a/p, RUQ u/s, and HIDA). ?UTI - but suspect biliary disease was main culprit. stop IV unasyn in am. change to PO augmentin. follow blood cx's but they remain negative. (2) Abnormal CT scan, gallbladder: Plan: CT and RUQ u/s concerning for findings that could be c/w acute cholecystitis Appreciate gen surg consultation CATARINA returned - at minimum has chronic cholecystitis, but some suggestion of acute as well. she remains without GI symptoms and is feeling better. continue unasyn today - then over to PO augmentin tomorrow. Rx for 10 days. post-d/c will refer to surgery for elective lap rhiannon in the near-future -- especially given her recurrent episodes of biliary colic over the last few months. allow clear liquids today, then advance. (3) Acute metabolic encephalopathy: Plan: 2nd to #1, #2 - resolved. MS back to baseline. (4) Melena: Plan: s/p 2 units PRBCs with robust improvement repeat H/H's remain stable. s/p EGD today - gastric ulcer along w/ gastritis present cont IV PPI then over to oral PPI tomorrow; cont carafate another 7 days or so resume clears post-EGD (5) Acute blood loss anemia: Plan: Hb upon presentation 8.4 pre-op Hb before her TKR was 12 suspect combo of blood loss from surgery AND GI bleeding. s/p 2 units PRBCs earlier this stay Hb now stable GI consult appreciated; EGD findings as above (6) Status post left knee replacement: Plan: 04/11/[address] Zelaya doing well from ortho standpoint no evidence of wound infection (7) PMR (polymyalgia rheumatica): Plan: on chronic prednisone 5mg daily cont stress dose steroids - hydrocortisone 25mg TID start weaning tomorrow (8) Oral cavity pain: Plan: chronic oral candidiasis?? cont nystatin 5cc qid (9) DVT prophylaxis: Plan: aspirin placed on hold by ortho due to concerns as above (10) Chronic cholecystitis: Plan: see above (11) Gastric ulcer: Plan: EGD confirmed bx pending PPI (12) Gastritis: Plan: seen on EGD PPI Plan: updated pt's at bedside PT, OT - cleared for home home tomorrow?? Admission and Anticipated Discharge Date Admission Date: April 15, 2021 Subjective tele overnight wnl pt feeling well at bedside during the visit NO abd pain with eating the clears NO nausea/emesis retrospectively - she recalls NUMEROUS episodes of post-prandial upper abd pain with radiation to the upper back over the last few months symptoms could last for hours thought it was GERD no overt blood in stool thinking is back to normal could recite months of the year backwards starting with February today - did it perfectly did well with PT today Review of Systems Review of Systems: gen - no fevers or chills; she is hungry cv - no pain pulm - no cough/congestion/dyspnea GI - no pain, vomiting, nausea Physical Exam Physical Exam: gen - obese, NAD, looks great today skin - no rash mouth - MMM neck - no JVD heart - RRR, s1 s2 lungs - CTA b/l abd - soft NT ND BS+; no HSM ext - no edema, pulses 2+ b/l psych - a/o x 3, no confusion today Results & Data Results & Data ([facility]) Vital Signs (Past 12 Hours) Vital Signs Temp Pulse Pulse Pulse Pulse Resp BP 04/17/21 19:53 36.8 C 63 20 04/17/21 16:03 36.6 C 60 18 144/84 H 04/17/21 15:22 63 04/17/21 14:35 69 18 134/82 04/17/21 14:21 69 18 142/76 H 04/17/21 14:11 36.5 C 74 16 107/58 L 04/17/21 13:06 36.5 C 64 16 151/73 H 04/17/21 11:52 36.4 C L 74 18 149/82 H BP Pulse Ox 04/17/21 19:53 144/70 H 95 04/17/21 16:03 96 04/17/21 15:22 04/17/21 14:35 96 04/17/21 14:21 97 04/17/21 14:11 92 04/17/21 13:06 96 04/17/21 11:52 94 Laboratory Results Laboratory Results - last 24 hr 04/17/21 04/17/21 04/17/21 03:00 05:20 05:20 WBC 10.21 RBC 2.94 L Hgb 8.6 L Hct 26.8 L MCV 91.2 MCH 29.3 MCHC 32.1 RDW Std Deviation 53.0 H RDW Coeff of Adela 15.9 H Plt Count 253 MPV 10.6 H Sodium 144 Potassium 3.5 Chloride 110 H Carbon Dioxide 27 Anion Gap 7 BUN 15 Creatinine 0.61 Est Cr Clr Drug Dosing 89.6 Est GFR ( Amer) 102.1 Est GFR (Non-Af Amer) 88.1 BUN/Creatinine Ratio 24.6 H Glucose 96 Calcium 7.9 L Total Bilirubin 0.5 Direct Bilirubin 0.2 AST 10 L ALT 15 Alkaline Phosphatase 87 Total Protein 5.1 L Albumin 2.6 L Stool Occult Bld Scrn Negative PG Care Time/CCT Total # of Minutes Spent Total Time Spent with Patient: Total time spent is greater than 50% in coordination of care (as documented) at patient's floor/unit and/or counseling patient: Coding Level of Care Code 85295 Subseq Hosp Care Lvl 3 Diagnoses SIRS (systemic inflammatory response syndrome) R65.[address] scan, gallbladder R93.2 Acute metabolic encephalopathy G93.41 Melena K92.1 Acute blood loss anemia D62 Status post left knee replacement Z96.652 PMR (polymyalgia rheumatica) M35.3 Oral cavity pain K13.79 DVT prophylaxis Z29.9 Chronic cholecystitis K81.1 Gastric ulcer K25.9 Gastritis K29.70
[2021-04-17] MEDS ORDERED: CAPSAICIN CR 0.075% 60 GM TUBE EXT PRN (21:28)
[2021-04-17] MEDS: MELATONIN 3 MG TAB PO PRN (21:34)
[2021-04-17] MEDS: DOCUSATE SODIUM/SENNA 50/8.6MG TAB PO SCH (21:37)
[2021-04-18] MEDS: AMPICILLIN/SULBACTAM SOD 3,000 MG in 0.9 % SODIUM CHLORIDE 100 ML IV SCH ×3 (03:39→09:04)
[2021-04-18] MEDS: DICLOFENAC SOD 1% GEL 100 GM TUBE EXT SCH ×2 (05:43→13:39)
[2021-04-18] MEDS: ACETAMINOPHEN 500 MG TAB PO SCH ×2 (07:46→13:38)
[2021-04-18] MEDS: ATORVASTATIN 20 MG TAB PO SCH (07:47)
[2021-04-18] MEDS: GABAPENTIN 600 MG TAB PO SCH ×2 (07:47→13:39)
[2021-04-18] MEDS: DULoxetine HCL 60 MG CAP PO SCH (07:47)
[2021-04-18] MEDS: FAMOTIDINE 20 MG in SYRINGE 3 ML IV SCH (07:47)
[2021-04-18] MEDS: CHOLECALCIFEROL 5,000 UNITS 125 MCG TAB PO SCH (07:47)
[2021-04-18] MEDS: HYDROCORTISONE SOD 25 MG in SYRINGE 0 ML IV SCH (07:48)
[2021-04-18] MEDS: NYSTATIN SUSP 500,000 U/5 ML UDC PO SCH ×3 (07:48→17:28)
[2021-04-18] MEDS: PANTOprazole 40 MG in SYRINGE 0 ML IV SCH (07:48)
[2021-04-18] MEDS: PROPRANOLOL HCL 60 MG LA CAP PO SCH (07:48)
[2021-04-18] MEDS: SUCRALFATE 1 GM/10 ML UDC PO SCH ×3 (07:49→17:28)
[2021-04-18 08:14] LABS: Hemoglobin 8.6 g/dL (12.0-16.0); Mean Corpuscular Hgb Conc 31.9 g/dL (32-36); Mean Corpuscular Volume 90.9 fL (80-100); Mean Platelet Volume 10.1 fL (7.4-10.4); Platelet Count 264 K/uL (130-400); RDW Coefficient of Variation 15.7 % (11.5-14.5); RDW Standard Deviation 52.8 fL (36.4-46.3); Red Blood Count 2.97 M/uL (4.2-5.4); White Blood Count 8.55 K/uL (4.8-10.8)
[2021-04-18 08:38] LABS: Albumin Level 2.6 gm/dl (3.4-5.0); BUN Creatinine Ratio 23.3 (10-20); Bilirubin,Total 0.5 mg/dl (0.2-1.0); Calcium 7.6 mg/dl (8.5-10.1); Creatinine Clr Calc Pharmacy 90.9 ml/min; Est GFR (African American) 102.6 ml/min; Est GFR (Non-African American) 88.5 ml/min; Globulin 2.5 gm/dl (2.5-4.0); Potassium 3.1 mmol/L (3.5-5.1); Total Protein 5.1 gm/dl (6.0-8.3)
[2021-04-18] MEDS ORDERED: POTASSIUM CHLORIDE CRTAB 20 MEQ TABCR PO STA (09:36)
--- NOTE | 2021-04-18 09:47 | Surgery Progress Note ---
Date of Service April 18, 2021 Assessment & Plan (1) Abnormal CT scan, gallbladder: (2) Chronic cholecystitis: Plan: HIDA scan showing chronic cholecystitis possible acute acalculous cholecystitis however cystic duct not completed obstructed. No fevers, no leukocytosis, no abdominal pain nontender on examination today. EGD 04/17/2021 showed gastric ulcer with no active bleeding, biopsed Plan: Given patients recent orthopedic surgery, UTI, gastric ulcer and HIDA scan not showing complete cystic duct obstruction would advised conservative management with antibiotics during this admission and then outpatient follow-up with Dr. fermin to discuss elective cholecystectomy If diet advanced after EGD , recommend diet be advanced to low fat diet Continue abx Discussed with Dr. Fermin who will see patient later today. Admission and Anticipated Discharge Date Admission Date: April 15, 2021 Subjective feeling good no abdominal pain, n,v tolerating full liquids without pain wants regular food Physical Exam Constitutional: WD/WN, vitals as above no acute distress and not ill appearing Respiratory: normal respiratory effort; no respiratory distress Gastrointestinal (Abdomen): Inspection/Auscultation: abdomen normal to inspection; abdomen not distended Percussion/Palpation: abdomen soft; abdomen nontender, no guarding and abdomen not rigid Skin: no rashes, warm and dry no jaundice Psychiatric: A+Ox3, euthymic affect Results & Data ([facility]) Vital Signs (Past 12 Hours) Vital Signs Temp Pulse Pulse Resp BP BP Pulse Ox 04/18/21 07:52 62 132/63 04/18/21 07:45 36.9 C 62 18 133/70 97 04/18/21 06:40 62 04/18/21 04:05 37.3 C 61 16 125/65 97 04/17/21 23:37 66 04/17/21 22:40 36.3 C L 65 95 H 156/79 H 95 Laboratory Results 04/18/21 04/18/21 Range/Units 07:55 07:55 WBC 8.55 (4.8-10.8) K/uL RBC 2.97 L (4.2-5.4) M/uL Hgb 8.6 L (12.0-16.0) g/dL Hct 27.0 L (37-47) % MCV 90.9 (80-100) fL MCH 29.0 (25-34) pg MCHC 31.9 L (32-36) g/dL RDW Std Deviation 52.8 H (36.4-46.3) fL RDW Coeff of Adela 15.7 H (11.5-14.5) % Plt Count 264 (130-400) K/uL MPV 10.1 (7.4-10.4) fL Sodium 145 (136-145) mmol/L Potassium 3.1 L (3.5-5.1) mmol/L Chloride 110 H (98-107) mmol/L Carbon Dioxide 28 (21-32) mmol/L Anion Gap 7 (3-11) BUN 14 (6-23) mg/dl Creatinine 0.60 (0.6-1.2) mg/dl Est Cr Clr Drug Dosing 90.9 ml/min Est GFR ( Amer) 102.6 ml/min Est GFR (Non-Af Amer) 88.5 ml/min BUN/Creatinine Ratio 23.3 H (10-20) Glucose 82 (70-99(Fasting)) mg/dl Calcium 7.6 L (8.5-10.1) mg/dl Total Bilirubin 0.5 (0.2-1.0) mg/dl AST 10 L (13-39) U/L ALT 12 (7-52) U/L Alkaline Phosphatase 76 (34-104) U/L Total Protein 5.1 L (6.0-8.3) gm/dl Albumin 2.6 L (3.4-5.0) gm/dl Globulin 2.5 (2.5-4.0) gm/dl Albumin/Globulin Ratio 1.0 (0.9-2)
[2021-04-18] MEDS: LIDOCAINE 5% 1 PATCH TD SCH (09:57)
[2021-04-18] MEDS ORDERED: IRON SUCROSE 200 MG in 0.9 % SODIUM CHLORIDE 100 ML IV ONE (10:00)
--- NOTE | 2021-04-18 10:31 | Progress Notes ---
DATE OF SERVICE: 04/18/2021. SUBJECTIVE: A 76-year-old white female now 1 week out from a left knee replacement. She was readmit karley for GI issues and cholecystitis. She is doing quite a bit better. Really not having much pain t yann. Knee pain seems to be improved. OBJECTIVE: VITAL SIGNS: Temperature 36.9. Vital signs are stable. GENERAL: Shows a pleasant, elderly female, sitting up in bed, looks quite comfortable. She is awake , alert and oriented. EXTREMITIES: Examination of the left leg reveals the dressing to be clean, dry and intact. There is no drainage. Leg is well aligned. Swelling seems to be a bit improved. She can dorsiflex and plan tarflex her foot appropriately. She is neurologically intact. LABORATORY DATA: Hemoglobin 8.6. Hematocrit 27.0. Electrolytes are pretty stable. Potassium is sl ightly low at 3.1. ASSESSMENT: A 76-year-old white female 1 week out from a left knee replacement. Orthopedically doin g pretty well. She did have some GI issues postop and these seem to be mostly resolved. Her pain is controlled this morning. She is neurologically intact. She is hoping to go home. PLAN: 1. DVT prophylaxis includes thigh-high TEDs, SCDs, and aspirin twice a day. 2. PT/OT. She can weight bear as tolerated in left lower extremity. 3. Pain control, doing okay with current pain regimen. 4. Medical management as per the medicine service. 5. Disposition: She is orthopedically okay for discharge any time medically stable. I need to see her back in about a week. She already has got a postoperative appointment scheduled. Any orthopedic questions can be directed to me at [phone]. Job ID: [id number]
[2021-04-18] MEDS ORDERED: predniSONE 10 MG TABLET PO ONE (14:00)
[2021-04-18] MEDS ORDERED: AMOXICILLIN/CLAVULANATE 875 MG TAB PO SCH (17:00)
--- NOTE | 2021-04-18 18:51 | Discharge Summary ---
Date of Service date of admission - April 14, 2021 date of discharge - April 18, 2021 Admission HPI Per Admitting Provider Emi Alexander is a 76 year old female s/p TKA performed by Dr Zelaya for degenerative joint disease three days ago who presents to the ER with altered mental status. She reports being her normal self yesterday. She has a pill dispenser at home which has been dispensing her pain medication every 8 hours as needed. However this means her tramadol comes out at around 4:30am in the morning. She is supposed to take this only if she has pain however she reports just taking whatever the machine dispenses and is unsure why it comes out so early in the morning. On further review of systems she reports having dysuria for 2 days. Additionally she has been having black stool although also constipated. In the ER hemoglobin 8.4 from pre-op hemoglobin 12.0. She is mostly back to her baseline per at bedside at this time. She was referred to medicine for admission and ongoing management of altered mental state. Principal Diagnosis 1. acute metabolic encephalopathy - likely 2nd to acute/chronic cholecystitis 2. acute blood loss anemia - 2nd to gastric ulcer/gastritis 3. probable acute/chronic cholecystitis 4. SIRS - likely 2nd to #3 Discharge Exam gen - obese, NAD skin - no rash, mild pallor mouth - MMM neck - no JVD heart - RRR, s1 s2 lungs - CTA b/l abd - soft NT ND BS+; no HSM ext - no edema, pulses 2+ b/l psych - a/o x 3, no confusion today musculo - left knee - derek intact, mild swelling, no warmth or redness Discharge Data Allergies Allergy/AdvReac Type Severity Reaction Status Date / Time shellfish derived Allergy Intermediate Hives Verified 04/17/21 13:05 No Known Drug Allergies Allergy Verified 04/17/21 13:05 Consultations [facility] Orthopedic Surgery [facility] General Surgery [facility] Gastroenterology PT, OT Procedures Performed Operation Date: 04/17/21 16:30 Actual Procedures p EGD Biopsy Cytology - Andrae Terry MD - Normal esophagus. - Non-bleeding gastric ulcer with no stigmata of bleeding. Biopsied. - Gastritis. - Normal duodenal bulb and second portion of the duodenum. PRBCs x 2 units Ordered Studies Head CT 04/14/21 09:14 CT head/brain wo con CLINICAL HISTORY: acute confusion, no resolved COMPARISON STUDY: 03/31/2019 CT DOSE: 690.05 mGycm TECHNIQUE: Standard CT of the Brain was performed without IV contrast. A dose lowering technique was utilized adhering to the principles of ALARA. FINDINGS: Extraaxial space: There is no evidence for subdural hematoma. There are no extra-axial fluid collections. Ventricles and cisterns: The ventricles are normal in size and configuration. There is no evidence for midline shift or mass effect. Parenchyma: There is no subarachnoid or intraparenchymal hemorrhage. There is no evidence for an acute infarct or cerebral edema. There is mild cerebral cortical atrophy and decreased attenuation in the periventricular white matter representing remote small vessel disease. There are no gross mass lesions. Osseous structures: There is no evidence for an acute fracture. The visualized paranasal sinuses are clear. The mastoid air cells are clear bilaterally. Soft tissues: There is no evidence for focal soft tissue swelling. IMPRESSION: No acute intracerebral pathology. Mild cerebral cortical atrophy and remote small vessel disease. ACT 112: Negative or not required by law. Electronically signed by: Juanito Mancilla M.D. 04/14/2021 9:53 AM Chest X-Ray 04/14/21 09:15 XR chest 1V portable CLINICAL HISTORY: acute confusion. Evaluate cardiopulmonary status. Previous smoker. COMPARISON STUDY: 03/08/2021 TECHNIQUE: 1 view of the chest FINDINGS: Single frontal view of the chest demonstrates the cardiomediastinal silhouette to be within normal limits. There is a decreased inspiratory effort with elevation of the hemidiaphragms and crowding of the bronchovascular markings at the lung bases and centrally. The lungs are clear of alveolar opacities. There is no evidence for pleural effusion. There is no evidence for vascular congestion. There is no acute osseous pathology. IMPRESSION: There is a decreased inspiratory effort with otherwise no acute chest disease. ACT 112: Negative or not required by law. Electronically signed by: Juanito Mancilla M.D. 04/14/2021 9:38 AM Abdomen/Pelvis CT 04/14/21 13:[address] WITH IV CONTRAST CT DOSE: 1163.80 mGy.cm HISTORY: generalized abdominal pain, altered mental state TECHNIQUE: Multiaxial CT images of the abdomen and pelvis were performed following the use of intravenous contrast. A dose lowering technique was utilized adhering to the principles of ALARA. COMPARISON STUDY: Abdomen and pelvis CT 08/18/2020. FINDINGS: Mild dependent changes seen within the lung bases posteriorly. A 4 mm subpleural nodule within the basal left lower lobe on image 55 is new from the prior study. Therefore, this likely represents atelectasis. No pneumoperitoneum. No pneumatosis. No fractures within the visualized osseous structures. There is a tiny fat-containing umbilical hernia. Subcutaneous fat stranding within the left anterior thigh. No hepatic or splenic masses. The main portal vein is patent. Normal caliber abdominal aorta with mild calcified plaque. No retroperitoneal lymphadenopathy. The adrenal glands and pancreas unremarkable. There are are a few subcentimeter hypodensities within the kidneys which are technically too small to characterize but statistically represent cysts. No hydronephrosis. A 4 mm stone within the right kidney, unchanged. The gallbladder is mildly distended and there is mild gallbladder wall thickening with minimal adjacent inflammatory change. There may be a few punctate stones near the neck of the gallbladder. Therefore, these findings likely represent acute cholecystitis. No pelvic free fluid. Normal bladder. Prior hysterectomy. A few colonic diverticula. No evidence for acute diverticulitis. No bowel wall thickening or obstruction. Normal appendix. IMPRESSION: 1. Distended gallbladder with mild gallbladder wall thickening and adjacent inflammatory change. There may be a few punctate stones near the neck of the gallbladder. Therefore, these findings are highly suspicious for acute cholecystitis. Surgical consultation and/or nuclear medicine HIDA scan/ultrasound can be used for further evaluation. 2. Right-sided nephrolithiasis. No hydronephrosis. 3. No bowel wall thickening or obstruction. ACT 112: Negative or not required by law. Electronically signed by: Dave Jones M.D. 04/14/2021 2:39 PM Gallbladder Ultrasound 04/15/21 13:01 ULTRASOUND RIGHT UPPER QUADRANT ABDOMEN CLINICAL HISTORY: Right upper quadrant abdominal pain. COMPARISON STUDY: Abdominal CT dated 04/14/2021. TECHNIQUE: Real-time, grayscale, and color flow sonography of the right upper quadrant of the abdomen was performed. Images are reviewed in the transverse and longitudinal planes. FINDINGS: Liver: The liver is normal in size and echotexture. There is no intrahepatic biliary ductal dilatation. The main portal vein is patent. Gallbladder: The gallbladder is distended in the gallbladder wall is thickened and edematous measuring up to 7 mm. No shadow gallstones are identified. Trace pericholecystic fluid is noted. A sonographic Paiz's sign is reportedly absent. The common bile duct measures up to 0.7 cm in diameter. Pancreas: Visualized portions of the pancreatic head and body are normal in appe arance. Right kidney: Survey images of the right kidney demonstrate mild cortical atrophy. Echotexture is normal. There is no hydronephrosis. Ascites: None. IMPRESSION: 1. The gallbladder is distended and the wall appears thickened and edematous. There is trace pericholecystic fluid. No shadowing gallstones are identified and a sonographic Paiz's sign is reportedly absent. Findings are equivocal for acalculous cholecystitis which is not excluded. Surgical consultation is advised. 2. The common bile duct measures up to 7 mm in diameter. 3. No intrahepatic biliary ductal dilatation is identified. ACT 112: Negative or not required by law. Electronically signed by: Maurilio Bishop M.D. 04/15/2021 4:12 PM Hepatobiliary Scan Nuclear Medicine 04/17/21 12:15 NUCLEAR MEDICINE HEPATOBILIARY SCAN CLINICAL HISTORY: Right upper quadrant abdominal pain. COMPARISON: CT of the abdomen and pelvis April 14, 2021. Right upper quadrant ultrasound April 15, 2021. TECHNIQUE: 5.8 mCi of technetium 99m Choletec IV was injected at 9:50 AM on April 17, 2021. Immediately following injection, imaging of the abdomen was carried out for 60 minutes in the anterior projection. At 60 minutes, radiotracer was not identified within the gallbladder and therefore 2 mg of morphine was administered IV as per protocol. Imaging was carried out for an additional 45 minutes. FINDINGS: Hepatic uptake of radiotracer is prompt and homogeneous. Activity is identified within the common bile duct and small bowel at 10 minutes. No gallbladder activity is noted at 60 minutes. Note is made of mild increased radiotracer uptake within the right hepatic lobe, within the gallbladder fossa. This is suggestive of a "rim sign". Following morphine administration, radiotracer was identified within the gallbladder. Therefore, there is no evidence for complete cystic duct obstruction. IMPRESSION: Abnormal hepatobiliary scan. Gallbladder activity not visualized at 60 minutes but present following morphine administration. Therefore, no evidence for complete cystic duct obstruction. This would suggest chronic cholecystitis however possible "rim sign" which raises the possibility of acute acalculus cholecystitis. ACT 112: Negative or not required by law. Electronically signed by: Yobany Jimenez M.D. 04/17/2021 11:48 AM Hospital Course (1) SIRS (systemic inflammatory response syndrome): Suspect was 2nd to biliary tract disease. Was indeed febrile and confused at time of admission with mild leukocytosis. SIRS resolved s/p IV antibiotics for possible acute/chronic cholecystitis (as suggested by CT a/p, RUQ u/s, and HIDA scan). ?UTI - but suspect biliary disease was the main culprit. Blood cultures remained negative her entire stay. Received IV Unasyn while here, transitioning to oral augmentin at discharge. (2) Abnormal CT scan, gallbladder: CT abd/pelvis and RUQ u/s were both concerning for findings that could be c/w cholecystitis. She was seen by general surgery who advised ongoing antibiotics and HIDA scan. HIDA - at minimum has chronic cholecystitis, but some suggestion of acute cholecystitis as well. Fortunately she had little in the way of GI symptoms while hospitalized. However, she did endorse post-prandial episodes of high epigastric pain that would radiate to the upper back. These had occurred several times over the months prior to this hospitalization. Again she received IV Unasyn while hospitalized, then was converted to oral augmentin at discharge for an additional 7 days of Rx. Following her EGD (see below) she was resumed on clears, then advanced to a low- fat diet thereafter. She tolerated the latter without difficulty. Post-d/c she will follow-up with [facility] General Surgery to arrange elective lap rhiannon in the near-future. Lap rhiannon was deferred during this stay due to recent L knee surgery, gastric ulcer, and other active medical issues. (3) Chronic cholecystitis: HIDA scan suggested such. HIDA also suggested a potential element of acute acalculous cholecystitis. See #2 above. (4) Acute metabolic encephalopathy: 2nd to #1, #2 - resolved. Mental status returned to baseline as confirmed by her family. (5) Melena: At time of admission the patient had reported episodes of melena stool at home. Hemoglobin was 8.4 at time of ER presentation. Hemoglobin fell further to 7.5. s/p 2 units PRBCs during this visit. She was seen by [facility]. EGD was advised. This confirmed the presence of a gastric ulcer along w/ gastritis. She received IV/PO PPI along with carafate. Diet was resumed post-EGD, and then advanced without difficulty. At discharge she will take PPI twice daily x 1 month, then reduce to once daily PPI thereafter. She will also take carafate 1gm TID x 7 days then stop. (6) Gastric ulcer: EGD confirmed PPI as above (7) Acute blood loss anemia: Hb upon presentation 8.4. pre-op Hb before her left TKR was 12. suspect the acute blood loss anemia was a combination of blood loss from surgery AND GI bleeding as noted in #5. s/p 2 units PRBCs while hospitalized. Hemoglobin at discharge - 8.6. She did receive 1 dose of IV venofer on 04/18/21 without incident. (8) Status post left knee replacement: 04/11/[address] Real Zelaya did well from ortho standpoint while here no evidence of wound infection derek were intact while hospitalized she will continue WBAT to the [facility] PT, OT services were continued during the stay she has f/u with Dr Zelaya April 27, 2021 as previously scheduled (9) PMR (polymyalgia rheumatica): on chronic prednisone 5mg daily. received stress dose steroids during the visit and will complete a brief steroid taper after discharge. the patient states she continues with b/l shoulder pain despite being on chronic steroids. I recommended she visit with rheumatology to see if she has any other condition contributing to her symptoms. (10) Oral cavity pain: chronic oral candidiasis?? Trial of empiric nystatin 5cc qid after discharge. If symptoms persist despite the nystatin then f/u with ENT or oral surgeon. (11) Gastritis: seen on EGD PPI (12) DVT prophylaxis: Aspirin 81mg BID was initially placed on hold due to melena stools and acute blood loss anemia. Following PRBCs and seeing that her H/H were remaining stable -- she will resume the aspirin for DVT proph 24 hours after discharge. Home Health Attestation I certify that this patient is under my care and that I, or a physicians executive staff assistant working with me, had a face to-face encounter that meets the home health vigd-oz-[id number] encounter requirements with this patient. The encounter with the patient was in whole, or in part, for the following medical condition, which is the primary reason for home health care (list medical condition): Therapy I certify that, based on my findings, the following services are medically necessary home health services: My clinical findings support the need for the above services because: Further, I certify that my clinical findings support that this patient is homebound (i.e. absences from home require considerable and taxing effort and are for medical reasons or religion services or infrequently or of short duration when for other reasons) because: Supportive Aid - Walker Certification for Home Health Services: Based on the above findings, I certify that this patient is confined to the home and needs intermittent assisted care, physical therapy and/or speech therapy or continues to need occupational therapy. The patient is under my care, and I have initiated the establishment of the plan of care. This patient will be followed by a physician who will periodically review the plan of care. Total Time Total Time Spent Total Time Spent (In Minutes): 55 Discharge Plan Discharge Items Patient Disposition: Home - Home Health Services Reason For Visit: ALTERED MENTAL STATUS (Confusion) Discharge Diagnosis: 1. confusion - resolved; likely due to sick gall bladder +/- urinary tract infection 2. abnormal gall bladder on CT scan, ultrasound, and HIDA scan - follow-up with general surgery needed to schedule gall bladder surgery 3. anemia - due to gastrointestinal blood loss from gastritis and gastric ulcer - 2 units of blood, 1 iron infusion given 4. recent left total knee replacement 5. history of polymyalgia rheumatica - on chronic prednisone Activity: As commented below Activity Comment: please follow any instructions given by Dr Zelaya after your knee surgery Lifting Comment: follow any instructions given by Dr Zelaya regarding lifting restrictions Bathing Comment: follow any instructions from Dr Zelaya regarding your left knee & bathing Exercise/Sports: Wait until after follow-up appointment Driving/Machine Use: follow any instructions given by Dr Zelaya regarding driving Non-emergency contact: Primary Care Provider, Surgeon and Specialist Call non-emergency contact if: you have any medication questions, your symptoms worsen, your pain is not controlled, your pain is worsening and you have a fever Follow-up/Referrals: Jose Fermin MD [Physician] - (please schedule a follow-up appointment with Dr Fermin in 3-4 weeks to discuss gall bladder removal ) Sabrina Paulino MD [Primary Care Provider] - (see Dr Paulino within 1 week) Real Zelaya MD [Physician] - 04/27/21 (keep scheduled appt with Dr Zelaya on 04/27/21 for your left knee ) Diet: Low Fat Addtl Attending Provider Instructions: Mrs Alexander, You were hospitalized due to having confusion at home. Shortly after admission we noted low-grade fevers. A CT scan of the abdomen was concerning for a sick gall bladder -- also known as "cholecystitis." You were started on IV antibiotics and seen by the surgeons. We also performed an ultrasound of your gall bladder along with something called a "HIDA scan." These studies were also not normal. I do suspect that the gall bladder was indeed sick and was the cause of your confusion & fevers. In addition, you had reported seeing dark stools at home. This can be a sign of blood in the stool. GI was consulted, and upper endoscopy ("EGD") was performed. This showed a stomach (gastric) ulcer along with irritation of your stomach lining (gastritis). The ulcer and gastritis likely caused the bleeding. Both of these issues are treated with acid reducers. You did need blood and an iron infusion for your anemia. Your hemoglobin (red cell number) was between 8.5 and 9 in the 24 hours prior to discharge. Recommendations - 1. antibiotics for your gall bladder - * amoxicillin-clavulanate 875mg twice daily for 7 days; take your first dose TON IGHT with food * probiotics once daily for 10 days; this may help prevent diarrhea from the antibiotics * if there was any urinary infection the antibiotic above will cover it 2. until your gall bladder surgery please follow a LOW FAT diet. See handout. 3. please avoid caffeinated beverages - dark sodas, coffee, tea - for at least 1-2 weeks to allow your stomach ulcer to heal optimally 4. for the stomach ulcer / gastritis - * pantoprazole 40mg twice daily for 1 month; after 1 month you can lower the dose to 40mg once daily * sucralfate 1gm three times daily before meals x 1 week 5. prednisone for your shoulder condition/polymyalgia - * 04/19 - take 20mg x 1 of your prednisone * 04/20 - take 15mg x 1 of your prednisone * 04/21 - take 10mg x 1 of your prednisone * 04/22 - resume your normal dose of 5mg/day Please talk to Dr Freeman about your shoulder/muscle condition and see if you need a referral to rheumatology to determine if the condition is being controlled, etc. 6. knee pain - * do not take ketorolac, ibuprofen, motrin, naprosyn, alleve * ok to take tylenol - this will not bother your stomach * I do not think that the tramadol caused your confusion at home (this medicatio n was prescribed by Dr Zelaya for knee pain) * if you wish to resume the tramadol please do so cautiously 7. for your chronic mouth pain/sore throat - in the event it is caused by yeast build-up in the mouth please take - * nystatin 5cc four times daily x 10 days; swish/spit * if the mouth pain continues despite the above please follow-up with Dr Paulino 8. for prevention of DVT blood clots in your legs - * resume aspirin 81mg twice daily on 04/19/21 * take the aspirin as directed by Dr Zelaya (typically 4-6 weeks in duration) 9. anemia - please talk to Dr Paulino about getting iron infusions as an outpatient to replace your low iron. Again you received an iron infusion on 04/18/21. Return to [facility] if - * you have fevers over 100 degrees * you have recurrent confusion * you have abdominal pain, nausea or vomiting * you have worsening left knee pain, drainage, swelling, etc * you continue to see dark, black, tarry stools over the next 7-10 days (this would be a sign of recurrent gastrointestinal bleeding); you may see some dark stool the next 1-2 days but it should fully resolve within that 48 hour period * any other concerns It was our pleasure to care for you at [facility]! Please feel better, Dr Christianson Pending Studies at Discharge: No Studies:: of note - your biopsy from the stomach did NOT show cancer; He licobacter pylori bacteria NOT found (this bacterium can cause stomach ulcers) Stand-Alone Forms: My [facility] [employer], Smoking Cessation Medications and DC Order Prescriptions: New nystatin 100,000 unit/mL Suspension 5 ml PO QID 10 Days Qty: 200 RF: 0 pantoprazole 40 mg Tablet,Delayed Release (Dr/Ec) 40 mg PO BID Qty: 60 RF: 1 amoxicillin-pot clavulanate [Augmentin] 875-125 mg Tablet 1 tab PO BIDM 7 Days Qty: 14 RF: 0 sucralfate [Carafate] 1 gram tablet 1 g PO AC 7 Days Qty: 21 RF: 0 Saccharomyces boulardii 250 mg capsule 250 mg PO DAILY 10 Days Qty: 10 RF: 0 Continued (DME) [facility] Dose Instructions .ROUTE .MEDSUPPLY Qty: 1 RF: 0 gabapentin 600 mg tablet 600 mg PO TID 90 Days Qty: 270 RF: 1 atorvastatin [Lipitor] 20 mg tablet 20 mg PO QAM Qty: 90 RF: 3 duloxetine 60 mg capsule,delayed release(DR/EC) 60 mg PO QAM Qty: 90 RF: 1 propranolol 120 mg capsule,extended release 24 hr 120 mg PO QAM Qty: 90 RF: 1 temazepam 30 mg capsule 30 mg PO HS Qty: 90 RF: 0 prednisone 2.5 mg tablet 5 mg PO QAM Qty: 180 RF: 1 ondansetron HCl 4 mg tablet 4 mg PO Q6 PRN (Reason: nausea) Qty: 20 RF: 1 aspirin [Adult Aspirin Regimen] 81 mg tablet,delayed release (DR/EC) 81 mg PO BID 45 Days Qty: 90 RF: 3 acetaminophen 500 mg capsule 1,000 mg PO TID 30 Days Qty: 180 RF: 0 meclizine 12.5 mg Tablet 12.5 mg PO TID PRN (Reason: Vertigo) RF: 0 cholecalciferol (vitamin D3) [Vitamin D3] 5,000 unit Tablet 5,000 unit PO QAM RF: 0 sennosides-docusate sodium [Senokot-S] 8.6-50 mg tablet 1 tab-cap PO HS RF: 0 Changed tramadol 50 mg tablet 50 mg PO Q8H PRN (Reason: pain) Qty: 40 RF: 0 Discontinued omeprazole magnesium [Prilosec OTC] 20 mg tablet,delayed release (DR/EC) 20 mg PO QAM Qty: 90 RF: 3 ketorolac 10 mg tablet 10 mg PO Q6 Qty: 20 RF: 0 Discharge Orders: Discharge Order (Routine); Ordered 04/18/21 Ordered By: Sal Awad/Other Patient Handouts: Understanding Gastric Ulcers, ED Diet, Low Fat, ED Gastritis (Adult) Admission Data Admit Date/Time: 04/15/21 16:08 Attending Provider: Sal Christianson Admit Provider: Sal Brooks Primary Care Provider: Sabrina Paulino Other Providers: Sal Brooks ; Real Zelaya ; Caio Kunz ; [facility],Home Health ; Andrae Terry Other Interventions: Discharge Summary Assessment (RN) Last Done: 04/18/21 18:15 Coding Level of Care Code D/C DAY MANAGEMENT >30 MINS Diagnoses SIRS (systemic inflammatory response syndrome) R65.[address] scan, gallbladder R93.2 Acute metabolic encephalopathy G93.41 Melena K92.1 Acute blood loss anemia D62 Status post left knee replacement Z96.652 PMR (polymyalgia rheumatica) M35.3 Oral cavity pain K13.79 DVT prophylaxis Z29.9 Chronic cholecystitis K81.1 Gastric ulcer K25.9 Gastritis K29.70
[2021-04-18] MEDS ORDERED: PANTOprazole 40 MG TAB PO SCH (21:00)
== END 2021-04-18 18:45 | disposition home health service (06) | DRG 444 ==
LOC: EDINP 08:53 → ED 08:53 → SUATTDRO 13:01 → EDINP 16:14 → 2N 20:18

== ENCOUNTER 2023-01-10 13:04 | Inpatient (IN) ==
[2023-01-10 13:53] LABS: Basophils # (auto) 0.06 K/uL (0.00-0.20); Basophils % (auto) 0.7 %; Eosinophils # (auto) 0.06 K/uL (0.00-0.50); Eosinophils % (auto) 0.7 %; Hemoglobin 12.9 g/dl (12.0-16.0); Immature Granulocytes # (auto) 0.03 K/uL (0.01-0.20); Immature Granulocytes % (auto) 0.3 %; Mean Corpuscular Hemoglobin 27.7 pg (25.0-34.0); Mean Corpuscular Hgb Conc 31.5 g/dL (32.0-36.0); Mean Platelet Volume 10.3 fL (9.4-12.4); Monocytes # (auto) 0.75 K/uL (0.11-0.59); Monocytes % (auto) 8.7 %; Neutrophils # (auto) 5.28 K/uL (1.40-6.50); Neutrophils % (auto) 61.6 %; Platelet Count 348 K/uL (130-400); RDW Coefficient of Variation 14.9 % (11.5-14.5); RDW Standard Deviation 47.4 fL (36.4-46.3); Red Blood Count 4.66 M/uL (4.20-5.40); White Blood Count 8.58 K/ul (4.8-10.8)
--- NOTE | 2023-01-10 14:05 | XRay Report ---
XR chest 1V portable HISTORY: 77 years-old Female chest pain acute chest pain COMPARISON: 04/14/2021 TECHNIQUE: AP view of the chest FINDINGS: Cardiomediastinal and hilar silhouettes are within normal limits. No pneumothorax, pleural effusion o r airspace consolidation. Degenerative changes of the shoulders and spine. IMPRESSION: No acute process. ACT 112: Negative or not required by law. The above report was generated using voice recognition software. It may contain grammatical, syntax o r spelling errors. Electronically signed by: Blair Mcleod M.D. 01/10/2023 2:04 PM
[2023-01-10 14:10] LABS: Alanine Aminotransferase 12 U/L (7-52); Albumin Globulin Ratio 1.4 (0.9-2); Alkaline Phosphatase 80 U/L (34-104); Anion Gap 8 (3-11); Aspartate Aminotransferase 13 U/L (13-39); BUN Creatinine Ratio 20.5 (10-20); Bilirubin,Total 0.2 mg/dl (0.2-1.0); Blood Urea Nitrogen 18 mg/dl (6-23); Calcium 8.7 mg/dl (8.6-10.3); Carbon Dioxide 27 mmol/L (21-32); Chloride 107 mmol/L (98-107); Est GFR (African American) 73.5 ml/min; Est GFR (Non-African American) 63.4 ml/min; Globulin 2.8 gm/dl (2.5-4.0); Glucose 163 mg/dl (70-99(Fasting)); Potassium 3.9 mmol/L (3.5-5.1); Sodium 142 mmol/L (136-145); Total Protein 6.8 gm/dl (6.0-8.3)
[2023-01-10 14:12] LABS: Troponin I High Sensitivity 8.2 pg/ml (0-14)
--- NOTE | 2023-01-10 14:14 | Emergency Department Note ---
Impression & Plan Atrial fibrillation with rapid ventricular response ED Provider Note NAME: ILSA ANGELO AGE: 77 SEX: F : 1945 ARRIVES VIA: Walk-In INFORMANT: Patient, ED PROVIDER(S): Raisa Fernandez MD CHIEF COMPLAINT: Dizziness HPI: This is a 77-year-old female who states that over the past 1 day she has noticed significant lightheadedness. She does she reported dizziness but clarify that this is more lightheaded sensation. She has a previous history of vertigo and took 3 of her meclizine without any improvement. She notes that today she thinks her hiatal hernia is acting up with it hurts in her center of her chest going into her back. She states that she also may be anemic as previous when she was just weak and tired she had required 2 units of blood. She has reported chest pain as previously described going to her back. Some slight shortness of breath especially with exertion. Family checked her blood pressure at home and notes that it is in the 90s systolic which is unusual for her usually in the 130s. She states she feels extremely fatigued, tired. She is not feeling palpitation sensations or fast heart rate. ROS: See above HPI for pertinent positives & negatives. A total of 10 systems reviewed and were otherwise negative. PAST MEDICAL HISTORY: See Below PAST SURGICAL HISTORY: See Below FAMILY HISTORY: See Below SOCIAL HISTORY: See Below HOME MEDICATIONS: See Below ALLERGIES: See Below VITALS: See Below PHYSICAL EXAMINATION: General: resting comfortably in no acute distress Head: Normocephalic and atraumatic Eyes: Normal inspection, extraocular muscles intact, no conjunctival pallor Ear, nose, throat: Normal external exam Neck: Normal range of motion Respiratory: Patient is in no respiratory distress, lungs clear to auscultation bilaterally Cardiovascular: Irregular irregular heart rate/rhythm without murmur appreciated GI: soft, nontender, no guarding or rebound Extremities: pulses intact with good cap refills, no LE pitting edema or calf tenderness Neuro: The patient awake and alert, appropriately conversive,no focal decifits Skin: Warm, dry, and intact MEDICAL DECISION MAKING: This is a 77-year-old female presenting for lightheadedness, weakness. Represent ACS, versus PE however at this time patient is in A-fib with RVR with rates in the 120s to 130s. She does mention some slight chest pressure and significant weakness with walking. We will do basic blood work, chest x-ray and troponin level. Patient troponin is negative this time. Her blood work is reassuring. Her chest x-ray reveals no acute abnormalities. Patient required multiple doses of IV diltiazem for rate control. She is still A-fib RVR with rates between 105 and 115. Will discuss with inpatient team for admission. Triage Nursing notes reviewed. Prior medical records reviewed Vital Signs: reviewed and remarkable for no significant abnormalities Differential diagnosis: A-fib/RVR, ACS, PE, dissection, pneumonia ER treatment provided: See below Diagnostics interpreted by me: ECG: ECG reviewed by me with atrial fibrillation with RVR rate of 128,, normal QRS, normal QTc, no ST segment elevations consistent with STEMI criteria Cardiac Monitoring: An order was placed for continuous cardiac monitoring. The monitor shows a rate of 111 with atrial fibrillation rhythm. Laboratory studies: As stated above and show below. Imaging studies: See below. Consultation(s): None Critical Care Note: I have personally spent 42 minutes of critical care time in the direct management of this patient. This includes bedside care, interpretation of diagnostic studies, and testing, discussion with consultants, patient, and family members, and other required patient management activities. This 42 minutes is in excess of all separately billable procedures. Past Med/Surg History Medical History (Updated 01/10/23 @ 18:45 by Raisa Fernandez MD) Acute blood loss anemia in setting of gastric bleed d/t ulcer, s/p 2 units PRBCs 03/2021, following with GI Acute metabolic encephalopathy 03/2021 in setting of SIRS suspected d/t acute/chronic cholecystitis, return to baseline prior to d/c Anxiety disorder Benign breast lumps Chronic cholecystitis plan for elective lap rhiannon per general surgery Essential tremor follows with Dr. Mack DIALLO neuro Gastric ulcer 04/17/2021 demonstrated on EGD, received IV/PO PPI + carafate, s/p 2 units PRBCs, d/c on po PPI and carafate with plan for repeat EGD outpatient by GI GERD (gastroesophageal reflux disease) controlled, stable per pt GI bleed 03/2021, following with GI History of iron deficiency anemia pre-op H&H 02/2021: 12.3/39 History of kidney stones punctate right renal stone, negative imaging in the urinary tracts, plan for 1 year f/u per [facility] 09/29/2020 office note Hyperlipidemia Meniere disease Nephrolithiasis Neuropathy idiopathic peripheral neuropathy per [facility] neuro 12/2020 note-on duloxetine and gabapentin Oral cavity pain per 04/18/2021 d/c summary: chronic oral candidiasis?? Trial of empiric nystatin 5cc qid after discharge. If symptoms persist despite the nystatin then f/u with ENT or oral surgeon. Paresthesia of left upper extremity PMR (polymyalgia rheumatica) on daily prednisone Pulmonary nodule monitoring, follows with PCP Right knee DJD Spinal stenosis Upper respiratory infection Urinary symptom or sign Vitamin D deficiency Surgical History (Updated 10/24/22 @ 14:05 by Nai Klein, RN) History of carpal tunnel release right History of cataract surgery bilat History of cholecystectomy History of colonoscopy History of left knee replacement 04/11/21 [facility]: Per anesthesia record, attempted SAB without success, aborted, plan for GA. LMA#4 + PNB. No immediate postop issues per anesthesia progress note. History of lithotripsy History of lumpectomy of both breasts BENIGN History of surgery BLADDER SLING History of tonsillectomy History of tooth extraction Status post left knee replacement Status post right knee replacement 08/20/2019: SAB at L3, 3 attempts + PNB. No issues per anesthesia post-op progress note. Status post [id number] Family History Mother Diabetes Family history of diabetes mellitus Myocardial infarction Hypertension Stroke Heart disease Aunt Breast cancer Father Prostate cancer Brother Hearing loss Other No family history of adverse response to anesthesia No family history of bleeding disorder Denies family history of Ovarian cancer Colorectal cancer Social History Smoking Status: Never smoker packs per day: 0.5; Cigarettes Per Day: 1 PPD; Second Hand Exposure: No; Do You Dip or Chew Tobacco: No; Hx Alcohol Use: Yes Alcohol type: beer Alcohol Intake Frequency: Monthly or Less Hx Substance Use: No Preferred Language: Libyan Communication Ability: Effective Visual Impairment: Limited Hearing Ability: Normal Salad Bar Clerk Required: No Beliefs That Will Affect Care: None marital status: Current Living Situation: Spouse and Family current occupational status: retired How many Children do You have: 1 Feels Safe at Home: Yes Childhood Exposure to Second-Hand Smoke: No Diet: regular caffeine: Yes during the past year weight has: remained stable Dental Care, Regularly: Yes Physical Activity Frequency: 1-2 Times per Week Seatbelt Use: always Sunscreen Use: Yes Do you think of yourself as: straight/heterosexual Gender Identity: Female Assistive Devices: Glasses and Walker Allergies Allergies Allergy/AdvReac Type Severity Reaction Status Date / Time shellfish derived Allergy Intermediate Hives Verified 01/10/23 14:17 No Known Drug Allergies Allergy Verified 10/24/22 14:05 Home Meds Home Medications Medication Instructions Recorded Confirmed cholecalciferol (vitamin D3) 125 5,000 unit PO QAM 08/06/18 01/10/23 mcg (5,000 unit) tablet (Vitamin D3) sennosides 8.6 mg-docusate sodium 1 tab-cap PO HS 04/14/21 01/10/23 50 mg tablet (Senokot-S) cyclobenzaprine 10 mg tablet 10 mg PO HS 01/10/23 01/10/23 duloxetine 60 mg capsule,delayed 60 mg PO QAM 01/10/23 01/10/23 release lactobacillus combination no.4 3 3,000 mmu cells PO HS 01/10/23 01/10/23 billion cell capsule (Probiotic) Previous Rx's Medication Instructions Recorded acetaminophen 500 mg capsule 1,000 mg PO TID Pain 30 days #180 04/07/21 caps omeprazole magnesium 20 mg 20 mg PO BID #180 caps 03/29/22 capsule,delayed release atorvastatin 20 mg tablet (Lipitor) 20 mg PO QAM #90 tabs 09/10/22 diclofenac sodium 75 mg 75 mg PO BID #180 tabs 09/18/22 tablet,delayed release cyanocobalamin (vitamin B-12) 1,000 mcg IM .COMPLEX #1 mL 10/18/22 1,000 mcg/mL injection solution gabapentin 600 mg tablet 600 mg PO TID 90 days #270 tabs 11/16/22 meclizine 25 mg tablet 25 mg PO TID PRN dizziness #90 tabs 11/27/22 temazepam 30 mg capsule (Restoril) 30 mg PO HS #90 caps 11/27/22 Results & Data (ED) Vital Signs Vital Signs - 24 hr 01/10/23 13:14 01/10/23 13:57 01/10/23 14:04 Temperature 36.8 C Temperature Source Temporal Artery Scan Pulse Rate 131 H 120 H Pulse Rate [Right Finger] Pulse Rate from SpO2 Sensor Pulse Rhythm Irregular Pulse Rhythm [Right Finger] Pulse Strength [Right Finger] Respiratory Rate 20 Respiratory Effort / Characteristics Non-Labored Spontaneous Respiratory Depth Normal Respiratory Pattern Blood Pressure 131/78 Blood Pressure [Left Arm] Blood Pressure Mean 95 Blood Pressure Mean [Left Arm] Blood Pressure Position [Left Arm] Pulse Oximetry 96 95 Oxygen Delivery Method Room Air Room Air Sepsis Recent Fever Within 48 Hours No Sepsis New/Unexplained Change in Mental Status N/A Sepsis Action Taken by Nursing No Action Required 01/10/23 14:04 01/10/23 13:54 01/10/23 14:00 Temperature Temperature Source Pulse Rate 114 H 120 H Pulse Rate [Right Finger] 93 H Pulse Rate from SpO2 Sensor 111 H 112 H Pulse Rhythm Pulse Rhythm [Right Finger] Regular Pulse Strength [Right Finger] Normal Respiratory Rate 22 19 21 Respiratory Effort / Characteristics Non-Labored Spontaneous Respiratory Depth Normal Respiratory Pattern Blood Pressure Blood Pressure [Left Arm] 108/65 Blood Pressure Mean Blood Pressure Mean [Left Arm] 79 Blood Pressure Position [Left Arm] Pulse Oximetry 95 95 96 Oxygen Delivery Method Sepsis Recent Fever Within 48 Hours Sepsis New/Unexplained Change in Mental Status Sepsis Action Taken by Nursing 01/10/23 14:10 01/10/23 14:20 01/10/23 14:30 Temperature Temperature Source Pulse Rate 125 H 120 H 121 H Pulse Rate [Right Finger] Pulse Rate from SpO2 Sensor 109 H 100 H 114 H Pulse Rhythm Pulse Rhythm [Right Finger] Pulse Strength [Right Finger] Respiratory Rate 14 13 23 Respiratory Effort / Characteristics Respiratory Depth Respiratory Pattern Blood Pressure Blood Pressure [Left Arm] Blood Pressure Mean Blood Pressure Mean [Left Arm] Blood Pressure Position [Left Arm] Pulse Oximetry 93 95 95 Oxygen Delivery Method Sepsis Recent Fever Within 48 Hours Sepsis New/Unexplained Change in Mental Status Sepsis Action Taken by Nursing 01/10/23 14:36 01/10/23 14:36 01/10/23 14:40 Temperature Temperature Source Pulse Rate 118 H Pulse Rate [Right Finger] Pulse Rate from SpO2 Sensor 114 H 103 H Pulse Rhythm Pulse Rhythm [Right Finger] Pulse Strength [Right Finger] Respiratory Rate 20 19 Respiratory Effort / Characteristics Respiratory Depth Respiratory Pattern Blood Pressure 101/66 Blood Pressure [Left Arm] Blood Pressure Mean 69 Blood Pressure Mean [Left Arm] Blood Pressure Position [Left Arm] Pulse Oximetry 95 94 Oxygen Delivery Method Sepsis Recent Fever Within 48 Hours Sepsis New/Unexplained Change in Mental Status Sepsis Action Taken by Nursing 01/10/23 14:50 01/10/23 15:00 01/10/23 15:10 Temperature Temperature Source Pulse Rate 100 H 99 H Pulse Rate [Right Finger] Pulse Rate from SpO2 Sensor 94 H 94 H 101 H Pulse Rhythm Pulse Rhythm [Right Finger] Pulse Strength [Right Finger] Respiratory Rate 19 19 18 Respiratory Effort / Characteristics Respiratory Depth Respiratory Pattern Blood Pressure Blood Pressure [Left Arm] Blood Pressure Mean Blood Pressure Mean [Left Arm] Blood Pressure Position [Left Arm] Pulse Oximetry 95 95 95 Oxygen Delivery Method Sepsis Recent Fever Within 48 Hours Sepsis New/Unexplained Change in Mental Status Sepsis Action Taken by Nursing 01/10/23 15:11 01/10/23 15:20 01/10/23 15:30 Temperature Temperature Source Pulse Rate 108 H 94 H 97 H Pulse Rate [Right Finger] Pulse Rate from SpO2 Sensor 107 H 92 H 101 H Pulse Rhythm Pulse Rhythm [Right Finger] Pulse Strength [Right Finger] Respiratory Rate 22 21 24 Respiratory Effort / Characteristics Respiratory Depth Respiratory Pattern Blood Pressure 108/65 112/74 Blood Pressure [Left Arm] Blood Pressure Mean 79 86 Blood Pressure Mean [Left Arm] Blood Pressure Position [Left Arm] Pulse Oximetry 95 96 95 Oxygen Delivery Method Sepsis Recent Fever Within 48 Hours Sepsis New/Unexplained Change in Mental Status Sepsis Action Taken by Nursing 01/10/23 15:40 01/10/23 15:50 01/10/23 16:00 Temperature Temperature Source Pulse Rate 97 H 98 H 108 H Pulse Rate [Right Finger] Pulse Rate from SpO2 Sensor 102 H 105 H 104 H Pulse Rhythm Pulse Rhythm [Right Finger] Pulse Strength [Right Finger] Respiratory Rate 22 24 12 Respiratory Effort / Characteristics Respiratory Depth Respiratory Pattern Blood Pressure 119/68 Blood Pressure [Left Arm] Blood Pressure Mean 85 Blood Pressure Mean [Left Arm] Blood Pressure Position [Left Arm] Pulse Oximetry 96 94 95 Oxygen Delivery Method Sepsis Recent Fever Within 48 Hours Sepsis New/Unexplained Change in Mental Status Sepsis Action Taken by Nursing 01/10/23 16:10 01/10/23 16:20 01/10/23 16:30 Temperature Temperature Source Pulse Rate 105 H 87 Pulse Rate [Right Finger] Pulse Rate from SpO2 Sensor 99 H 89 89 Pulse Rhythm Pulse Rhythm [Right Finger] Pulse Strength [Right Finger] Respiratory Rate 26 H 12 14 Respiratory Effort / Characteristics Respiratory Depth Respiratory Pattern Blood Pressure 115/84 Blood Pressure [Left Arm] Blood Pressure Mean 94 Blood Pressure Mean [Left Arm] Blood Pressure Position [Left Arm] Pulse Oximetry 95 94 95 Oxygen Delivery Method Sepsis Recent Fever Within 48 Hours Sepsis New/Unexplained Change in Mental Status Sepsis Action Taken by Nursing 01/10/23 16:40 01/10/23 16:50 01/10/23 17:00 Temperature Temperature Source Pulse Rate 105 H 98 H 104 H Pulse Rate [Right Finger] Pulse Rate from SpO2 Sensor 99 H 98 H 96 H Pulse Rhythm Pulse Rhythm [Right Finger] Pulse Strength [Right Finger] Respiratory Rate 24 12 13 Respiratory Effort / Characteristics Respiratory Depth Respiratory Pattern Blood Pressure 106/67 Blood Pressure [Left Arm] Blood Pressure Mean 80 Blood Pressure Mean [Left Arm] Blood Pressure Position [Left Arm] Pulse Oximetry 95 96 94 Oxygen Delivery Method Sepsis Recent Fever Within 48 Hours Sepsis New/Unexplained Change in Mental Status Sepsis Action Taken by Nursing 01/10/23 17:10 01/10/23 17:20 01/10/23 17:30 Temperature Temperature Source Pulse Rate 88 107 H Pulse Rate [Right Finger] Pulse Rate from SpO2 Sensor 105 H 112 H 99 H Pulse Rhythm Pulse Rhythm [Right Finger] Pulse Strength [Right Finger] Respiratory Rate 11 L 12 12 Respiratory Effort / Characteristics Respiratory Depth Respiratory Pattern Blood Pressure Blood Pressure [Left Arm] Blood Pressure Mean Blood Pressure Mean [Left Arm] Blood Pressure Position [Left Arm] Pulse Oximetry 95 96 96 Oxygen Delivery Method Sepsis Recent Fever Within 48 Hours Sepsis New/Unexplained Change in Mental Status Sepsis Action Taken by Nursing 01/10/23 17:32 01/10/23 17:40 01/10/23 17:50 Temperature Temperature Source Pulse Rate 115 H 125 H 103 H Pulse Rate [Right Finger] Pulse Rate from SpO2 Sensor 106 H 107 H Pulse Rhythm Pulse Rhythm [Right Finger] Pulse Strength [Right Finger] Respiratory Rate 12 22 18 Respiratory Effort / Characteristics Respiratory Depth Respiratory Pattern Blood Pressure 109/73 Blood Pressure [Left Arm] Blood Pressure Mean 85 Blood Pressure Mean [Left Arm] Blood Pressure Position [Left Arm] Pulse Oximetry 95 97 Oxygen Delivery Method Sepsis Recent Fever Within 48 Hours Sepsis New/Unexplained Change in Mental Status Sepsis Action Taken by Nursing 01/10/23 18:00 Temperature Temperature Source Pulse Rate Pulse Rate [Right Finger] 80 Pulse Rate from SpO2 Sensor Pulse Rhythm Pulse Rhythm [Right Finger] Irregular Pulse Strength [Right Finger] Normal Respiratory Rate 23 Respiratory Effort / Characteristics Non-Labored Spontaneous Respiratory Depth Normal Respiratory Pattern Regular Blood Pressure Blood Pressure [Left Arm] 111/70 Blood Pressure Mean Blood Pressure Mean [Left Arm] 83 Blood Pressure Position [Left Arm] Lying Pulse Oximetry 94 Oxygen Delivery Method Room Air Sepsis Recent Fever Within 48 Hours Sepsis New/Unexplained Change in Mental Status Sepsis Action Taken by Nursing Laboratory Data 01/10/23 13:31 01/10/23 13:31 Lab Results 01/10/23 01/10/23 Range/Units 13:31 13:31 WBC 8.58 (4.8-10.8) K/ul RBC 4.66 (4.20-5.40) M/uL Hgb 12.9 (12.0-16.0) g/dl Hct 41.0 (37.0-47.0) % MCV 88.0 (80.0-100.0) fL MCH 27.7 (25.0-34.0) pg MCHC 31.5 L (32.0-36.0) g/dL RDW Std Deviation 47.4 H (36.4-46.3) fL RDW Coeff of Adela 14.9 H (11.5-14.5) % Plt Count 348 (130-400) K/uL MPV 10.3 (9.4-12.4) fL Immature Gran % (Auto) 0.3 % Neut % (Auto) 61.6 % Lymph % (Auto) 28.0 % [place] % (Auto) 8.7 % Eos % (Auto) 0.7 % Baso % (Auto) 0.7 % Neut # (Auto) 5.28 (1.40-6.50) K/uL Lymph # (Auto) 2.40 (1.20-3.40) K/uL [place] # (Auto) 0.75 H (0.11-0.59) K/uL Eos # (Auto) 0.06 (0.00-0.50) K/uL Baso # (Auto) 0.06 (0.00-0.20) K/uL Immature Gran # (Auto) 0.03 (0.01-0.20) K/uL Sodium 142 (136-145) mmol/L Potassium 3.9 (3.5-5.1) mmol/L Chloride 107 (98-107) mmol/L Carbon Dioxide 27 (21-32) mmol/L Anion Gap 8 (3-11) BUN 18 (6-23) mg/dl Creatinine 0.88 (0.6-1.2) mg/dl Est Cr Clr Drug Dosing Not Reportable Est GFR ( Amer) 73.5 ml/min Est GFR (Non-Af Amer) 63.4 ml/min BUN/Creatinine Ratio 20.5 H (10-20) Glucose 163 H (70-99(Fasting)) mg/dl Calcium 8.7 (8.6-10.3) mg/dl Total Bilirubin 0.2 (0.2-1.0) mg/dl AST 13 (13-39) U/L ALT 12 (7-52) U/L Alkaline Phosphatase 80 (34-104) U/L Troponin I High Sens 8.2 (0-14) pg/ml Total Protein 6.8 (6.0-8.3) gm/dl Albumin 4.0 (3.4-5.0) gm/dl Globulin 2.8 (2.5-4.0) gm/dl Albumin/Globulin Ratio 1.4 (0.9-2) Administered Medications Discontinued Medications Diltiazem HCl (Diltiazem Hcl 5 Mg/Ml 5 Ml Vial) 10 mg IV NOW STA Stop: 01/10/23 14:24 Last Admin: 01/10/23 14:36 Dose: 10 mg Documented By: ADMISSIONS SPECIALIST Co-signed By: HERBERTH Diltiazem HCl (Diltiazem Hcl 5 Mg/Ml 5 Ml Vial) 10 mg IV NOW STA Stop: 01/10/23 14:59 Last Admin: 01/10/23 16:05 Dose: 10 mg Documented By: ADMISSIONS SPECIALIST Co-signed By: LAYLA Imaging Data Radiologist's Impression: Chest X-Ray 01/10/23 13:21 XR chest 1V portable HISTORY: 77 years-old Female chest pain acute chest pain COMPARISON: 04/14/2021 TECHNIQUE: AP view of the chest FINDINGS: Cardiomediastinal and hilar silhouettes are within normal limits. No pneumothorax, pleural effusion or airspace consolidation. Degenerative changes of the shoulders and spine. IMPRESSION: No acute process. ACT 112: Negative or not required by law. The above report was generated using voice recognition software. It may contain grammatical, syntax or spelling errors. Electronically signed by: Blair Mcleod M.D. 01/10/2023 2:04 PM Discharge Plan Visit Data Chief Complaint: Hypotension Stated Complaint: CHEST PAIN,LOW BP, ED Provider: Raisa Fernandez Discharge Problem: Atrial fibrillation with rapid ventricular response Forms Stand Alone Forms: [facility] [employer] Prescriptions Prescriptions: No Action acetaminophen 500 mg capsule 1,000 mg PO TID 30 Days Qty: 180 0RF Rx Instructions: Take 3 times per day to lessen pain. omeprazole magnesium 20 mg capsule,delayed release(DR/EC) 20 mg PO BID Qty: 180 3RF atorvastatin [Lipitor] 20 mg tablet 20 mg PO QAM Qty: 90 3RF diclofenac sodium 75 mg tablet,delayed release (DR/EC) 75 mg PO BID Qty: 180 3RF cyanocobalamin (vitamin B-12) 1,000 mcg/mL solution 1,000 mcg IM .COMPLEX Qty: 1 5RF Rx Instructions: 1,000 mcg intramuscularly ONCE A MONTH; gabapentin 600 mg tablet 600 mg PO TID 90 Days Qty: 270 2RF temazepam [Restoril] 30 mg capsule 30 mg PO HS Qty: 90 0RF Rx Instructions: PDMP searched, last filled on 12/22/21 for 90 days, DNFB 03/21/22 meclizine 25 mg tablet 25 mg PO TID PRN (Reason: dizziness) Qty: 90 4RF cholecalciferol (vitamin D3) [Vitamin D3] 5,000 unit Tablet 5,000 unit PO QAM Probiotic 3 billion cell Capsule 3,000 mmu cells PO HS Rx Instructions: administer with a meal cyclobenzaprine 10 mg tablet 10 mg PO HS duloxetine 60 mg capsule,delayed release(DR/EC) 60 mg PO QAM Rx Instructions: TAKE 1 CAPSULE BY MOUTH IN THE MORNING sennosides-docusate sodium [Senokot-S] 8.6-50 mg tablet 1 tab-cap PO HS Rx Instructions: Take to prevent constipation. Referrals Referrals: Sabrina Paulino MD [Primary Care Provider] -
[2023-01-10] MEDS ORDERED: dilTIAZem HCl 5 MG/ML 5 ML VIAL IV STA ×2 (14:23→14:58)
--- NOTE | 2023-01-10 16:24 | History & Physical Report ---
Date of Service January 10, 2023 Assessment & Plan (1) New onset atrial fibrillation: Plan: New-onset Afib with RVR - rates relativity well controlled s/p diltiazem in the ED - Plan to start 50mg Metoprol succinate for rate control qAM, will give 25mg metoprolol tartrate qHS - [id number]- VASC= 3; will start Eliquis 5mg BID - Discussed history of anemia s/p knee replacement 03/2021 with gastric ulcer. Hemoglobin has been stable with a baseline of 10-11. risks vs benefits of starting anticoagulation - echo pending - could consider cardiology consult qAM if rates aren't well controlled on above regimen Essential Tremor - continue gabapentin, Cymbalta HLD - continue statin GERD, history of gastric ulcer - continue PPI History of arthritis/Lumbar stenosis - continue cyclobenzaprine - hold diclofenac in the setting of anticoagulation Anxiety/Insomnia? - continue temazepam Code Status: DNR/DNI Diet: Regular Dispo: Med Surg with Tele DVT prophylaxis: Eliquis (2) GERD without esophagitis: (3) Hyperlipidemia: (4) Essential tremor: (5) Spinal stenosis, lumbar region, with neurogenic claudication: History of Present Illness Primary Care Provider: Sabrina Paulino MD 77 year old female with a past medical history of essential tremor, HLD, PMR, gastric ulcer presenting with one day of lightheadedness/dizziness. Prior history of vertigo, took meclizine without improvement. Also noted some pain in center of chest that radiates to back, similar pain to what she has had with hiatal hernia in the past and has since resolved since being in the ED. Did have COVID 3 weeks no lingering symptoms. In the ED was found to be in Afib with RVR with rates in the 120s/130s. Was given 20mg Diltiazem in ED. Otherwise work-up was unremarkable; CBC, CMP wnl, HS trop= 8.2, CXR without acute pathology. Allergies Allergy/AdvReac Type Severity Reaction Status Date / Time shellfish derived Allergy Intermediate Hives Verified 01/10/23 14:17 No Known Drug Allergies Allergy Verified 10/24/22 14:05 Home Medications Medication Instructions Recorded Confirmed Type cholecalciferol (vitamin D3) 125 5,000 unit PO QAM 08/06/18 01/10/23 History mcg (5,000 unit) tablet (Vitamin D3) acetaminophen 500 mg capsule 1,000 mg PO TID Pain 30 days #180 04/07/21 01/10/23 Rx caps sennosides 8.6 mg-docusate sodium 1 tab-cap PO HS 04/14/21 01/10/23 History 50 mg tablet (Senokot-S) omeprazole magnesium 20 mg 20 mg PO BID #180 caps 03/29/22 01/10/23 Rx capsule,delayed release atorvastatin 20 mg tablet (Lipitor) 20 mg PO QAM #90 tabs 09/10/22 01/10/23 Rx diclofenac sodium 75 mg 75 mg PO BID #180 tabs 09/18/22 01/10/23 Rx tablet,delayed release cyanocobalamin (vitamin B-12) 1,000 mcg IM .COMPLEX #1 mL 10/18/22 01/10/23 Rx 1,000 mcg/mL injection solution gabapentin 600 mg tablet 600 mg PO TID 90 days #270 tabs 11/16/22 01/10/23 Rx meclizine 25 mg tablet 25 mg PO TID PRN dizziness #90 tabs 11/27/22 01/10/23 Rx temazepam 30 mg capsule (Restoril) 30 mg PO HS #90 caps 11/27/22 01/10/23 Rx cyclobenzaprine 10 mg tablet 10 mg PO HS 01/10/23 01/10/23 History duloxetine 60 mg capsule,delayed 60 mg PO QAM 01/10/23 01/10/23 History release lactobacillus combination no.4 3 3,000 mmu cells PO HS 01/10/23 01/10/23 History billion cell capsule (Probiotic) Past Med/Surg History Medical History (Updated 01/10/23 @ 18:45 by Raisa Fernandez MD) Acute blood loss anemia in setting of gastric bleed d/t ulcer, s/p 2 units PRBCs 03/2021, following with GI Acute metabolic encephalopathy 03/2021 in setting of SIRS suspected d/t acute/chronic cholecystitis, return to baseline prior to d/c Anxiety disorder Benign breast lumps Chronic cholecystitis plan for elective lap rhiannon per general surgery Essential tremor follows with Dr. Mack DIALLO neuro Gastric ulcer 04/17/2021 demonstrated on EGD, received IV/PO PPI + carafate, s/p 2 units PRBCs, d/c on po PPI and carafate with plan for repeat EGD outpatient by GI GERD (gastroesophageal reflux disease) controlled, stable per pt GI bleed 03/2021, following with GI History of iron deficiency anemia pre-op H&H 02/2021: 12.3/39 History of kidney stones punctate right renal stone, negative imaging in the urinary tracts, plan for 1 year f/u per [place] [facility] 09/29/2020 office note Hyperlipidemia Meniere disease Nephrolithiasis Neuropathy idiopathic peripheral neuropathy per [place] [facility] 12/2020 note-on duloxetine and gabapentin Oral cavity pain per 04/18/2021 d/c summary: chronic oral candidiasis?? Trial of empiric nystatin 5cc qid after discharge. If symptoms persist despite the nystatin then f/u with ENT or oral surgeon. Paresthesia of left upper extremity PMR (polymyalgia rheumatica) on daily prednisone Pulmonary nodule monitoring, follows with PCP Right knee DJD Spinal stenosis Upper respiratory infection Urinary symptom or sign Vitamin D deficiency Surgical History (Updated 10/24/22 @ 14:05 by Nai Klein, SALVADOR) History of carpal tunnel release right History of cataract surgery bilat History of cholecystectomy History of colonoscopy History of left knee replacement 04/11/21 [facility]: Per anesthesia record, attempted SAB without success, aborted, plan for GA. LMA#4 + PNB. No immediate postop issues per anesthesia progress note. History of lithotripsy History of lumpectomy of both breasts BENIGN History of surgery BLADDER SLING History of tonsillectomy History of tooth extraction Status post left knee replacement Status post right knee replacement 08/20/2019: SAB at L3, 3 attempts + PNB. No issues per anesthesia post-op progress note. Status post JEZ-BSO Family History Mother Diabetes Family history of diabetes mellitus Myocardial infarction Hypertension Stroke Heart disease Aunt Breast cancer Father Prostate cancer Brother Hearing loss Other No family history of adverse response to anesthesia No family history of bleeding disorder Denies family history of Ovarian cancer Colorectal cancer Social History Smoking Status: Former smoker packs per day: 0.5; Cigarettes Per Day: 1 PPD; Second Hand Exposure: No; Do You Dip or Chew Tobacco: No; Hx Alcohol Use: Yes Alcohol type: beer Alcohol Intake Frequency: Monthly or Less Hx Substance Use: No Preferred Language: Swedish Communication Ability: Effective Visual Impairment: Limited Hearing Ability: Normal Business Services Officer Required: No Beliefs That Will Affect Care: None marital status: Current Living Situation: Spouse and Family current occupational status: retired How many Children do You have: 1 Other Information That Helps Us Care for You: No Feels Safe at Home: Yes Safety Concerns: Feels Safe At This Time Childhood Exposure to Second-Hand Smoke: No Diet: regular caffeine: Yes during the past year weight has: remained stable Dental Care, Regularly: Yes Physical Activity Frequency: 1-2 Times per Week Seatbelt Use: always Sunscreen Use: Yes Do you think of yourself as: straight/heterosexual Gender Identity: Female Assistive Devices: None Review of Systems Review of Systems: As per above Physical Exam Physical Exam: Constitutional: well-appearing, no acute distress HEENT: NCAT, no conjunctival injection CV: irregular rhythm, no murmur appreciated, extremities well-perfused, no LE edema Resp: CTABL, no wheezes/rales/rhonchi appreciated, no increased work of breathing GI: soft, nondistended, nontender, BS normoactive MSK: no gross deformities appreciated Skin: warm, dry, no rash appreciated Neuro: alert, oriented, no focal neurologic deficit appreciated Results & Data Results & Data Vital Signs (Past 12 Hours) Vital Signs Temp Pulse Pulse Resp BP BP Pulse Ox 01/10/23 15:11 108 H 22 108/65 95 01/10/23 15:10 99 H 18 95 01/10/23 15:00 19 95 01/10/23 14:50 100 H 19 95 01/10/23 14:40 19 94 01/10/23 14:36 101/66 01/10/23 14:36 118 H 20 95 01/10/23 14:30 121 H 23 95 01/10/23 14:20 120 H 13 95 01/10/23 14:10 125 H 14 93 01/10/23 14:00 120 H 21 96 01/10/23 13:54 114 H 19 95 01/10/23 14:04 93 H 22 108/65 95 01/10/23 14:04 95 01/10/23 13:57 120 H 01/10/23 13:14 36.8 C 131 H 20 131/78 96 O2 Del Method 01/10/23 15:11 01/10/23 15:10 01/10/23 15:00 01/10/23 14:50 01/10/23 14:40 01/10/23 14:36 01/10/23 14:36 01/10/23 14:30 01/10/23 14:20 01/10/23 14:10 01/10/23 14:00 01/10/23 13:54 01/10/23 14:04 01/10/23 14:04 Room Air 01/10/23 13:57 01/10/23 13:14 Room Air Supervising Physician Co-Signing Physician Notes Attending addendum: I have physically seen this patient, have supervised the medical residents activities, and agree with the H&P unless as otherwise noted. Assessment and Plan: New onset atrial fibrillation with RVR- The patient will be admitted to telemetry for serial cardiac enzymes, serial EKG's, cardiac rhythm monitoring and a 2-D echocardiogram with Dopplers. Improved rate control status post diltiazem 10 mg IV x2 Starting metoprolol as noted Starting Eliquis 5 mg p.o. twice daily Consult cardiology Essential tremor- Continue gabapentin and Cymbalta GERD/gastric ulcer history- Continue PPI Remaining orders and notations as noted Resident Activity Tracking Resident Involvement: Resident Care Provided Care Provided: Adult Hospital Medicine
--- NOTE | 2023-01-10 17:08 | Electrocardiogram Report ---
Test Reason : Blood Pressure : / mmHG Vent. Rate : 128 BPM Atrial Rate : 000 BPM P-R Int : 000 ms QRS Dur : 084 ms QT Int : 288 ms P-R-T Axes : 000 052 048 degrees QTc Int : 420 ms Atrial fibrillation with rapid ventricular response Possible Old Anterior infarct Abnormal ECG When compared with ECG of 14-APR-2021 22:16, Atrial fibrillation has replaced Sinus rhythm Borderline Criteria for Anterior infarct now present HR has increased by 35 bpm Confirmed by Shukri Tanner ([id number]) on 01/10/2023 5:08:06 PM Referred By: REFERRED SELF Confirmed By:Shukri Tanner
[2023-01-10] MEDS ORDERED: METOPROLOL TARTRATE 25 MG TAB PO ONE (19:41)
[2023-01-10] MEDS ORDERED: MECLIZINE HCL 25 MG TAB PO PRN (19:41)
[2023-01-10 19:46] LABS: Appearance Urine Clear (Clear); Bacteria Urine Automated Negative (Negative); Bilirubin Urine Negative (Negative); Blood Urine Trace (Negative); Color Urine Dark Yellow; Epithelial Cell Urine Auto >30 /lpf (0-5); Glucose Urine UA Negative (Negative); Ketones Urine Trace (Negative); Leukocyte Esterase Urine Trace (Negative); Nitrite Urine Negative (Negative); Protein Urine Trace (Negative); Specific Gravity Urine 1.037 (1.000-1.030); Urobilinogen Urine Negative (Negative); pH Urine 5.5 (4.5-7.5)
[2023-01-10] MEDS: GABAPENTIN 600 MG TAB PO SCH (20:26)
[2023-01-10] MEDS: DOCUSATE SODIUM/SENNA 50/8.6MG TAB PO SCH (20:26)
[2023-01-10] MEDS: CYCLOBENZAPRINE HCL 10 MG TAB PO SCH (20:26)
[2023-01-10] MEDS: ACETAMINOPHEN 500 MG TAB PO SCH (20:26)
[2023-01-10] MEDS: PANTOprazole 40 MG TAB PO SCH (20:26)
[2023-01-10] MEDS: APIXABAN 5 MG TABLET PO SCH (20:53)
[2023-01-10] MEDS: TEMAZEPAM 15 MG CAPSULE PO SCH (20:54)
[2023-01-11 07:19] LABS: Hematocrit (blood only) 33.9 % (37.0-47.0); Mean Corpuscular Hemoglobin 28.1 pg (25.0-34.0); Mean Corpuscular Hgb Conc 32.4 g/dL (32.0-36.0); Mean Corpuscular Volume 86.5 fL (80.0-100.0); Mean Platelet Volume 10.3 fL (9.4-12.4); Platelet Count 281 K/uL (130-400); RDW Coefficient of Variation 15.2 % (11.5-14.5); RDW Standard Deviation 47.7 fL (36.4-46.3); Red Blood Count 3.92 M/uL (4.20-5.40); White Blood Count 7.95 K/ul (4.8-10.8)
[2023-01-11 07:38] LABS: BUN Creatinine Ratio 26.5 (10-20); Calcium 8.3 mg/dl (8.6-10.3); Creatinine Clr Calc Pharmacy 69.1 ml/min; Est GFR (African American) 97.8 ml/min; Est GFR (Non-African American) 84.4 ml/min; Magnesium 2.1 mg/dl (1.7-2.4); Potassium 3.9 mmol/L (3.5-5.1)
[2023-01-11] MEDS: ACETAMINOPHEN 500 MG TAB PO SCH ×3 (08:32→20:39)
[2023-01-11] MEDS: DULoxetine HCL 60 MG CAP PO SCH (08:32)
[2023-01-11] MEDS: APIXABAN 5 MG TABLET PO SCH ×2 (08:32→20:38)
[2023-01-11] MEDS: METOPROLOL SUCC 50MG EXT REL TAB PO SCH (08:32)
[2023-01-11] MEDS: ATORVASTATIN 20 MG TAB PO SCH (08:32)
[2023-01-11] MEDS: PANTOprazole 40 MG TAB PO SCH ×2 (08:32→20:38)
[2023-01-11] MEDS: GABAPENTIN 600 MG TAB PO SCH ×3 (08:32→20:40)
--- NOTE | 2023-01-11 11:52 | Billing Data ---
Date of Service January 11, 2023 Coding Level of Care Code 46420 INT INP/OBS CARE
--- NOTE | 2023-01-11 12:58 | XCELERA ---
[id number] [id number]
[2023-01-11 16:27] LABS: Hematocrit (blood only) 33.4 % (37.0-47.0); Hemoglobin 10.5 g/dl (12.0-16.0)
[2023-01-11] MEDS: TEMAZEPAM 15 MG CAPSULE PO SCH (20:37)
[2023-01-11] MEDS: CYCLOBENZAPRINE HCL 10 MG TAB PO SCH (20:39)
[2023-01-11] MEDS: DOCUSATE SODIUM/SENNA 50/8.6MG TAB PO SCH (20:39)
--- NOTE | 2023-01-11 23:20 | Hospitalist Progress Note ---
Date of Service January 11, 2023 Assessment & Plan (1) New onset atrial fibrillation: Plan: New-onset Afib with RVR - rates relativity well controlled s/p diltiazem in the ED - continue 50mg Metoprol succinate for rate control qAM - [id number]- VASC= 3; will start Eliquis 5mg BID - Discussed history of anemia s/p knee replacement 03/2021 with gastric ulcer. Hemoglobin has been stable with a baseline of 10-11. risks vs benefits of starting anticoagulation -Echo had a normal EF -Patient had a drop of her hemoglobin: dropped from 12 to 11 to 10.5 WIll hold discharge and monitor Patient though has no signs of bleeding. Essential Tremor - continue gabapentin, Cymbalta HLD - continue statin GERD, history of gastric ulcer - continue PPI History of arthritis/Lumbar stenosis - continue cyclobenzaprine - hold diclofenac in the setting of anticoagulation Anxiety/Insomnia? - continue temazepam Code Status: DNR/DNI Diet: Regular Dispo: Med Surg with Tele DVT prophylaxis: Eliquis (2) GERD without esophagitis: (3) Hyperlipidemia: (4) Essential tremor: (5) Spinal stenosis, lumbar region, with neurogenic claudication: Admission and Anticipated Discharge Date Admission Date: January 10, 2023 Subjective Patient reports doing well. She has no new complaints. Review of Systems Review of Systems: All systems reviewed & are unremarkable except as noted in HPI & below Physical Exam Physical Exam: Constitutional: well-appearing, no acute distress HEENT: NCAT, no conjunctival injection CV: irregular rhythm Resp: CTABL GI: soft, nondistended, nontender, BS normoactive MSK: no gross deformities appreciated Skin: warm, dry, no rash appreciated Neuro: alert, oriented, no focal neurologic deficit appreciated Results & Data Results & Data Vital Signs (Past 12 Hours) Vital Signs Temp Pulse Pulse Resp BP BP Pulse Ox 01/11/23 20:42 36.8 C 99 H 18 134/72 95 01/11/23 15:57 36.5 C 76 18 114/74 94 01/11/23 15:28 66 01/11/23 12:01 36.8 C 68 18 93/59 L 93 O2 Del Method O2 Flow Rate 01/11/23 20:42 Nasal Cannula 2 01/11/23 15:57 Room Air 01/11/23 15:28 01/11/23 12:01 Room Air PG Care Time/CCT Total # of Minutes Spent Total Time Spent with Patient: Total time spent is greater than 50% in coordination of care (as documented) at patient's floor/unit and/or counseling patient: Coding Level of Care Code 42385 SUB INP/OBS CARE 3/50MIN Diagnoses New onset atrial fibrillation I48.91 GERD without esophagitis K21.9 Hyperlipidemia E78.5 Essential tremor G25.0 Spinal stenosis, lumbar region, with neurogenic claudication M48.062 Time Spent (min) 50
--- NOTE | 2023-01-12 07:09 | Electrocardiogram Report ---
Test Reason : Blood Pressure : / mmHG Vent. Rate : 082 BPM Atrial Rate : 082 BPM P-R Int : 162 ms QRS Dur : 088 ms QT Int : 402 ms P-R-T Axes : 056 013 050 degrees QTc Int : 469 ms Normal sinus rhythm Possible Inferior infarct , age undetermined Anterior infarct (cited on or before 14-APR-2021) Abnormal ECG When compared with ECG of 10-JAN-2023 13:30, Sinus rhythm has replaced Atrial fibrillation Vent. rate has decreased BY 46 BPM Borderline criteria for Inferior infarct are now Present Confirmed by Leo Wolfe ([id number]) on 01/12/2023 7:09:04 AM Referred By: REFERRED SELF Confirmed By:Leo Wolfe
[2023-01-12 07:17] LABS: Hemoglobin 10.8 g/dl (12.0-16.0); Mean Corpuscular Hemoglobin 27.8 pg (25.0-34.0); Mean Corpuscular Hgb Conc 31.8 g/dL (32.0-36.0); Mean Corpuscular Volume 87.6 fL (80.0-100.0); Mean Platelet Volume 10.3 fL (9.4-12.4); Platelet Count 252 K/uL (130-400); RDW Coefficient of Variation 14.9 % (11.5-14.5); RDW Standard Deviation 47.6 fL (36.4-46.3); Red Blood Count 3.88 M/uL (4.20-5.40); White Blood Count 6.91 K/ul (4.8-10.8)
[2023-01-12 07:50] LABS: Folate (Folic Acid),Ser orPlas 6.31 ng/ml (>5.38)
[2023-01-12 08:21] LABS: Albumin Globulin Ratio 1.5 (0.9-2); Albumin Level 3.4 gm/dl (3.4-5.0); BUN Creatinine Ratio 23.4 (10-20); Bilirubin,Total 0.3 mg/dl (0.2-1.0); Calcium 8.4 mg/dl (8.6-10.3); Creatinine Clr Calc Pharmacy 61.8 ml/min; Est GFR (African American) 86.3 ml/min; Est GFR (Non-African American) 74.5 ml/min; Globulin 2.2 gm/dl (2.5-4.0); Total Protein 5.6 gm/dl (6.0-8.3)
[2023-01-12 08:40] LABS: Ferritin 89.6 ng/ml (8-388)
[2023-01-12] MEDS: PANTOprazole 40 MG TAB PO SCH (09:17)
[2023-01-12] MEDS: ATORVASTATIN 20 MG TAB PO SCH (09:17)
[2023-01-12] MEDS: APIXABAN 5 MG TABLET PO SCH (09:17)
[2023-01-12] MEDS: DULoxetine HCL 60 MG CAP PO SCH (09:17)
[2023-01-12] MEDS: METOPROLOL SUCC 50MG EXT REL TAB PO SCH (09:18)
[2023-01-12] MEDS: GABAPENTIN 600 MG TAB PO SCH (09:18)
[2023-01-12] MEDS: ACETAMINOPHEN 500 MG TAB PO SCH (09:24)
== END 2023-01-12 12:32 | disposition home or self-care (01) | DRG 310 ==
LOC: ED 13:04 → SUATTDRO 17:12 → EDINP 17:12 → 2N 01-11 00:06